=== PATIENT | female | born 1990 | race African-American/Black ===

== ENCOUNTER 2019-04-01 02:58 | Emergency (ER) | payer SELFPAY ==
[2019-04-01 05:26] LABS: ABSOLUTE EOSINOPHILS # (AUTO) 0.1 10^3/uL (0.0-0.6); ABSOLUTE LYMPHOCYTES (AUTO) 1.7 10^3/uL (0.5-4.7); ABSOLUTE MONOCYTES (AUTO) 0.8 10^3/uL (0.1-1.4); ABSOLUTE NEUT (AUTO) 4.7 10^3/uL (1.7-8.2); BASOPHILS % (AUTO) 0.3 % (0-2); HEMATOCRIT 28.7 % (36.0-47.0); HEMOGLOBIN 8.9 g/dL (12.0-15.5); LYMPHOCYTES % (AUTO) 22.7 % (13-45); MEAN CORPUSCULAR HEMOGLOBIN 20.6 pg (27.0-33.4); MEAN CORPUSCULAR VOLUME 67 fl (80-97); MONOCYTES % (AUTO) 11.1 % (3-13); PLATELET COUNT 309 10^3/uL (150-450); RED BLOOD COUNT 4.32 10^6/uL (3.72-5.28); RED CELL DISTRIBUTION WIDTH 21.2 % (11.5-14.0); SEGMENTED NEUTROPHILS % (AUTO) 63.9 % (42-78); TOTAL CELLS COUNTED % (AUTO) 100 %; WHITE BLOOD COUNT 7.4 10^3/uL (4.0-10.5)
[2019-04-01 05:36] LABS: ALANINE AMINOTRANSFERASE 19 U/L (9-52); ALBUMIN 3.6 g/dL (3.5-5.0); ALKALINE PHOSPHATASE 76 U/L (38-126); ANION GAP 9 (5-19); ASPARTATE AMINO TRANSFERASE 19 U/L (14-36); BILIRUBIN,DIRECT 0.3 mg/dL (0.0-0.4); BILIRUBIN,TOTAL 0.4 mg/dL (0.2-1.3); BLOOD UREA NITROGEN 6 mg/dL (7-20); CALCIUM 8.7 mg/dL (8.4-10.2); CARBON DIOXIDE 27 mmol/L (22-30); CHLORIDE 102 mmol/L (98-107); GLUCOSE 96 mg/dL (75-110); LIPASE 610.2 U/L (23-300); POTASSIUM 3.4 mmol/L (3.6-5.0); SODIUM 138.4 mmol/L (137-145); TOTAL PROTEIN 7.3 g/dL (6.3-8.2)
[2019-04-01 06:30] LABS: APPEARANCE,URINE CLEAR; BILIRUBIN,URINE NEGATIVE (NEGATIVE); COLOR,URINE YELLOW; GLUCOSE, URINE NEGATIVE (NEGATIVE); KETONES,URINE NEGATIVE (NEGATIVE); LEUKOCYTE ESTERASE,URINE TRACE (NEGATIVE); NITRITE,URINE NEGATIVE (NEGATIVE); PROTEIN,URINE 30 mg/dL (NEGATIVE); URINE SPECIFIC GRAVITY 1.013; UROBILINOGEN,URINE NEGATIVE mg/dL (<2.0)
[2019-04-01] MEDS ORDERED: NORMAL SALINE 500 ML IV ONE (08:07)
--- NOTE | 2019-04-01 09:27 | RADIOLOGY REPORT (SQ) ---
EXAM DESCRIPTION: CTA CHEST COMPLETED DATE/TIME: 04/01/2019 9:16 am REASON FOR STUDY: recent sx sob tachy COMPARISON: AP chest 04/19/2016 TECHNIQUE: CT scan of the chest performed using helical scanning technique with dynamic intravenous contrast injection. Images reviewed with lung, soft tissue and bone windows. Reconstructed coronal and sagittal MPR images reviewed. Additional 3 dimensional post-processing performed to develop Maximal Intensity Projection images (PA P). All images stored on PACS. All CT scanners at this facility use dose modulation, iterative reconstruction, and/or weight based d osing when appropriate to reduce radiation dose to as low as reasonably achievable (ALARA). [facility]: Dose Right [facility]: CareDose [facility]: Dose Right [facility]: Teradose 4D [facility]: GüvenRehberi CONTRAST TYPE AND DOSE: contrast/concentration: Isovue 350.00 mg/ml; Total Contrast Delivered: 86.0 ml; Total Saline Delivered: 90.0 ml Contrast bolus optimized for the pulmonary arteries. Not diagnostic for the aorta. RENAL FUNCTION: Creatinine 0.7 RADIATION DOSE: CT Rad equipment meets quality standard of care and radiation dose reduction techniq ues were employed. CTDIvol: 19.8 - 35.6 mGy. DLP: 1251 mGy-cm. . LIMITATIONS: None. FINDINGS: LUNGS AND PLEURA: No masses, infiltrates, or pneumothorax. No pleural effusions or pleura l calcifications. AORTA AND GREAT VESSELS: No aneurysm. Contrast bolus not optimized for the aorta. HEART: No pericardial effusion. No significant coronary artery calcifications. PULMONARY ARTERIES: No emboli visualized in the main pulmonary arteries or the segmental branches. HILAR AND MEDIASTINAL STRUCTURES: No identified masses or abnormal nodes. HARDWARE: None in the chest. UPPER ABDOMEN: No significant findings. Limited exam. THYROID AND OTHER SOFT TISSUES: No masses. No adenopathy. BONES: No acute or significant finding. 3D MIPS: Confirm above findings. OTHER: No other significant finding. IMPRESSION: NORMAL CTA OF THE CHEST. NO PULMONARY EMBOLI. COMMENT: Quality ID # [id number]: Final reports with documentation of one or more dose reduction techniques (e.g., Automated exposure control, adjustment of the mA and/or kV according to patient size, use of iterative reconstruction technique) TECHNICAL DOCUMENTATION: JOB ID: [id number] [employer]- All Rights Reserved Reading location - IP/workstation name: [email or web address]
[2019-04-01] MEDS ORDERED: BENZONATATE 100 MG CAPSULE PO ONE (09:46)
[2019-04-01 09:53] VITALS: BP 136/80
--- NOTE | 2019-04-01 10:03 | ER Document Report ---
ED General - General Chief Complaint: Breathing Difficulty Stated Complaint: DIFFICULTY BREATHING Time Seen by Provider: 04/01/19 07:02 Primary Care Provider: JESICA BETANCOURT MD [Primary Care Provider] - Follow up in 3-5 days TRAVEL OUTSIDE OF THE [place].S[place] IN LAST 30 DAYS: No - HPI Patient complains to provider of: Shortness of breath Notes: Patient coming in for chest pain shortness of breath ongoing for the last 2 days. Patient states scant sputum production with a cough. Patient recently had surgery performed at [facility] with a partial colectomy. Patient has a colostomy at this time. Patient otherwise denies any fevers chills nausea vomiting diarrhea. Patient resting comfortably upon my evaluation. - Related Data Allergies/Adverse Reactions: acetaminophen [From Excedrin Migraine] Allergy (Severe, Verified 04/01/19 07:54) throat swelling aspirin [From Excedrin Migraine] Allergy (Verified 04/01/19 07:54) caffeine [From Excedrin Migraine] Allergy (Verified 04/01/19 07:54) ibuprofen [From Advil] Allergy (Verified 04/01/19 07:54) Past Medical History - Social History Smoking Status: Never Smoker Chew tobacco use (# tins/day): No Frequency of alcohol use: None Drug Abuse: None Family History: Reviewed & Not Pertinent Patient has suicidal ideation: No Patient has homicidal ideation: No - Past Medical History Cardiac Medical History: Reports: Hx Hypercholesterolemia, Hx Hypertension Renal/ Medical History: Denies: Hx Peritoneal Dialysis - Immunizations Hx Diphtheria, Pertussis, Tetanus Vaccination: Yes Review of Systems - Review of Systems Constitutional: No symptoms reported EENT: No symptoms reported Cardiovascular: Chest pain Respiratory: Short of breath Gastrointestinal: No symptoms reported Genitourinary: No symptoms reported Female Genitourinary: No symptoms reported Musculoskeletal: No symptoms reported Skin: No symptoms reported Hematologic/Lymphatic: No symptoms reported Neurological/Psychological: No symptoms reported -: Yes All other systems reviewed and negative Physical Exam - Vital signs Vitals: Temp Pulse Resp BP Pulse Ox 98.5 F 111 H 20 143/101 H 99 04/01/19 03:01 04/01/19 03:01 04/01/19 03:01 04/01/19 03:01 04/01/19 03:01 Interpretation: Normal - General General appearance: Appears well, Alert - HEENT Head: Normocephalic, Atraumatic Eyes: Normal Pupils: PERRL - Respiratory Respiratory status: No respiratory distress Chest status: Nontender Breath sounds: Normal Chest palpation: Normal - Cardiovascular Rhythm: Regular Heart sounds: Normal auscultation Murmur: No - Abdominal Inspection: Other - Colostomy in place no signs of infection normal drainage. Distension: No distension Bowel sounds: Normal Tenderness: Nontender Organomegaly: No organomegaly - Back Back: Normal, Nontender - Extremities General upper extremity: Normal inspection, Nontender, Normal color, Normal ROM, Normal temperature General lower extremity: Normal inspection, Nontender, Normal color, Normal ROM, Normal temperature, Normal weight bearing. No: Pipo's sign - Neurological Neuro grossly intact: Yes Cognition: Normal Orientation: AAOx4 Guillermo Coma Scale Eye Opening: Spontaneous Guillermo Coma Scale Verbal: Oriented Guillermo Coma Scale Motor: Obeys Commands Alderson Coma Scale Total: 15 Speech: Normal Motor strength normal: LUE, RUE, LLE, RLE Sensory: Normal - Psychological Associated symptoms: Normal affect, Normal mood - Skin Skin Temperature: Warm Skin Moisture: Dry Skin Color: Normal Course - Re-evaluation Re-evalutation: 04/01/19 13:58 Laboratory studies show signs of anemia. Possible etiology of the patient's shortness of breath. CTA laboratory studies not revealing critical pathology. Patient was just discharged home follow-up primary care physician. The patient has atypical chest pain as the patient's chest pain is not suggestive of pulmonary embolus, cardiac ischemia, aortic dissection, or other serious etiology. Given the extremely low risk of these diagnoses further testing and evaluation for these possibilities does not appear to be indicated at this time. The patient has been instructed to return if the symptoms worsen or change in any way. - Vital Signs Vital signs: Temp Pulse Resp BP Pulse Ox 98.8 F 90 20 136/80 H 100 04/01/19 09:51 04/01/19 09:51 04/01/19 09:51 04/01/19 09:51 04/01/19 09:51 - Laboratory Result Diagrams: 04/01/19 05:05 04/01/19 05:05 Laboratory results interpreted by me: 04/01/19 04/01/19 04/01/19 05:05 05:05 05:05 Hgb 8.9 L Hct 28.7 L MCV 67 L MCH 20.6 L MCHC 31.0 L RDW 21.2 H D-Dimer 2.14 H Potassium 3.4 L BUN 6 L Lipase 610.2 H Urine Protein Ur Leukocyte Esterase 04/01/19 06:20 Hgb Hct MCV MCH MCHC RDW D-Dimer Potassium BUN Lipase Urine Protein 30 H Ur Leukocyte Esterase TRACE H Discharge - Discharge Clinical Impression: Dyspnea Qualifiers: Dyspnea type: unspecified Qualified Code(s): R06.00 - Dyspnea, unspecified Anemia Qualifiers: Anemia type: unspecified type Qualified Code(s): D64.9 - Anemia, unspecified Condition: Good Disposition: HOME, SELF-CARE Instructions: Anemia ([facility]), Dyspnea, Nonspecific ([facility]) Additional Instructions: Your laboratory studies not show any signs of critical pathology except for an anemia. I would recommend starting iron tablets please be aware that this may change the output of your ostomy to dark green to dark black. Please follow-up with your primary care physician for further evaluation of your anemia. CT scan does not show any signs of pneumonia or PE. To help out with your cough we will try Tessalon Perles. Return to the ER symptoms worsen. Prescriptions: Benzonatate [Tessalon Perle 100 mg Capsule] 100 mg PO Q8HP PRN #40 cap PRN Reason: Ferrous Sulfate [Iron] 325 mg PO DAILY #30 tablet Referrals: JESICA BETANCOURT MD [Primary Care Provider] - Follow up in 3-5 days
--- NOTE | 2019-04-01 20:30 | EKG REPORT ---
SEVERITY:- ABNORMAL ECG - SINUS TACHYCARDIA PROBABLE LEFT ATRIAL ABNORMALITY PROBABLE LEFT VENTRICULAR HYPERTROPHY PROLONGED QT INTERVAL : Confirmed by: Essie Phillip 01-Apr-2019 20:29:11
== END 2019-04-01 10:05 | disposition home or self-care (01) ==
LOC: ER 02:58
DX: R06.02 Shortness of breath (principal); D64.9 Anemia, unspecified; R07.89 Other chest pain; R05 Cough; I10 Essential (primary) hypertension; Z93.3 Colostomy status; Z90.49 Acquired absence of other specified parts of digestive tract; Z88.8 Allergy status to other drugs, medicaments and biological substances
CPT/HCPCS: 93005; 99285; 36415; 83690; 85025; 80053; 81001; 84484; 85379; 71275; 93010; J7040

== ENCOUNTER 2019-04-19 05:12 | Inpatient (IN) | payer SELFPAY ==
[2019-04-19] MEDS ORDERED: PREDNISONE 20 MG TABLET PO ONE (06:32)
[2019-04-19] MEDS ORDERED: IPRATROPIUM/ALBUTEROL 0.5-2.5 MG/3 ML AMPUL NEB ONE (06:33)
[2019-04-19] MEDS ORDERED: LIDOCAINE 1% INJ-PF (10 MG/ML) 30 ML SDV NEB ONE (06:33)
--- NOTE | 2019-04-19 06:55 | ER Document Report ---
Entered by LAM MATOS SCRIBE 04/19/19 0648 Acting as scribe for:ODILIA ORNELAS MD ED Respiratory Problem - General Chief Complaint: Breathing Difficulty Stated Complaint: DIFFICULTY BREATHING Time Seen by Provider: 04/19/19 06:13 Mode of Arrival: Ambulatory Information source: Patient Notes: 29-year-old female who presents to the emergency department today with complaints of a cough for around x3 weeks. Patient was seen here initially on 04/01 and was diagnosed with an upper respiratory virus. The patient traveled to [place] for the april, was seen in the emergency department and was told she had "pneumonia" and was sent home on Levaquin, albuterol inhalers, and cough syrup. Patient states despite taking all of the above-mentioned medicati ons her cough is still not getting better. Patient denies a sore throat. TRAVEL OUTSIDE OF THE U.S. IN LAST 30 DAYS: No - Related Data Allergies/Adverse Reactions: acetaminophen [From Excedrin Migraine] Allergy (Severe, Verified 04/01/19 07:54) throat swelling aspirin [From Excedrin Migraine] Allergy (Verified 04/01/19 07:54) caffeine [From Excedrin Migraine] Allergy (Verified 04/01/19 07:54) ibuprofen [From Advil] Allergy (Verified 04/01/19 07:54) Past Medical History - General Information source: Patient - Social History Smoking Status: Current Every Day Smoker Cigarette use (# per day): Yes - 1/2 PPD Chew tobacco use (# tins/day): No Smoking Education Provided: No Frequency of alcohol use: None Drug Abuse: None Occupation: unemployed Lives with: Family Family History: Reviewed & Not Pertinent Patient has suicidal ideation: No Patient has homicidal ideation: No GI Medical History: Reports: Hx Diverticulitis Past Surgical History: Reports: Hx Colostomy - Colostomy with partial colectomy March 2019 for perforated diverticulitis - Immunizations Hx Diphtheria, Pertussis, Tetanus Vaccination: Yes Review of Systems - Review of Systems Constitutional: No symptoms reported EENT: denies: Throat pain Cardiovascular: No symptoms reported Respiratory: See HPI, Cough, Short of breath Gastrointestinal: No symptoms reported Genitourinary: No symptoms reported Female Genitourinary: No symptoms reported Musculoskeletal: No symptoms reported Skin: No symptoms reported Hematologic/Lymphatic: No symptoms reported Neurological/Psychological: No symptoms reported -: Yes All other systems reviewed and negative Physical Exam - Vital signs Vitals: Temp Pulse Resp BP Pulse Ox 97.9 F 115 H 28 H 150/94 H 95 04/19/19 05:17 04/19/19 05:17 04/19/19 05:17 04/19/19 05:17 04/19/19 05:17 - Notes Notes: Physical Exam: General: Alert, appears well. HEENT: Normocephalic. Atraumatic. PERRL. Extraocular movements intact. Oropharynx clear. TMs are clear bilaterally. Posterior oropharynx erythema with a white globule on the right tonsil although patient reports no throat discomfort. Hoarse sounding voice. Neck: Supple. Non-tender. Respiratory: Frequent dry cough. Patient does seem a little tachypneic. There are no definite crackles or wheezes heard on auscultation. Cardiovascular: Regular rate and rhythm. Systolic crescendo murmur. Abdominal: Normal Inspection. Non-tender. No distension. Normal Bowel Sounds. Back: Non-tender. No deformity or step off. Extremities: Moves all four extremities. Upper extremities: Normal inspection. Normal ROM. Lower extremities: Normal inspection. No edema. Normal ROM. Neurological: Normal cognition. AAOx4. Normal speech. Psychological: Normal affect. Normal Mood. Skin: Warm. Dry. Normal color. Course - Re-evaluation Re-evalutation: 04/19/19 08:29 This 29-year-old female patient came to the emergency room complaining of cough for the last few weeks. On initial history and physical, she denied a history of high blood pressure or any other medical problems. Reviewing available pharmacy records, I found she had been put on lisinopril, carvedilol, amlodipine , Lasix, spironolactone all in the past year. On further questioning, she states she had been here several times with cough and congestion it was not getting better and went to the emergency room in [facility] where she was diagnosed with congestive heart failure. Afterwards she was following up with the [facility] in their local [place] office. She had seen at least 2 different almond roaster, and had 2 echoes. She states the second echo they said everything was cleaned up and she did not need to be taking the medications any longer. She states that she was told her dima ginal congestive heart failure was caused by her blood pressure being so high and not being treated. Patient did have chest x-rays done here twice in 2016, and there was no infiltrate or interstitial edema on either of those x-rays. - Vital Signs Vital signs: Temp Pulse Resp BP Pulse Ox 97.9 F 115 H 32 H 145/100 H 98 04/19/19 05:17 04/19/19 05:17 04/19/19 09:01 04/19/19 09:01 04/19/19 09:01 - Laboratory Result Diagrams: 04/19/19 06:40 04/19/19 06:40 Laboratory results interpreted by me: 04/19/19 04/19/19 04/19/19 06:40 06:40 06:40 WBC 11.0 H Hgb 9.8 L Hct 31.0 L MCV 67 L MCH 21.2 L MCHC 31.5 L RDW 22.1 H Potassium 3.5 L NT-Pro-B Natriuret Pep 1690 H Albumin 3.4 L - Diagnostic Test Radiology reviewed: Image reviewed, Reports reviewed - Chest x-ray shows cardiac enlargement with pulmonary vascular congestion. - EKG Interpretation by Me EKG shows normal: Sinus rhythm, Mckinney, QRS Complexes, ST-T Waves. abnormal: Int ervals - Prolonged QT interval Rate: Tachycardia - 111 Voltage: Consistant with LVH P Waves: LAE When compared to previous EKG there are: No significant change - Consults Marco Bateman NP Time consulted: 12:58 Consulted provider: will come to ER Critical Care Note - Critical Care Note Total time excluding time spent on procedures (mins): 35 Discharge - Discharge Clinical Impression: Pulmonary edema cardiac cause, Shortness of breath, Cough, Non-compliance with treatment High blood pressure Qualifiers: Hypertension type: essential hypertension Qualified Code(s): I10 - Essential (primary) hypertension Condition: Stable Disposition: ADMITTED INPATIENT Admitting Provider: David (Hospitalist) Unit Admitted: KELLI Scribe Attestation: 04/19/19 06:57 I personally performed the services described in the documentation, reviewed and edited the documentation which was dictated to the scribe in my presence, and it accurately records my words and actions. I personally performed the services described in the documentation, reviewed and edited the documentation which was dictated to the scribe in my presence, and it accurately records my words and actions.
[2019-04-19 06:57] LABS: ABSOLUTE LYMPHOCYTES (AUTO) 1.9 10^3/uL (0.5-4.7); ABSOLUTE MONOCYTES (AUTO) 0.8 10^3/uL (0.1-1.4); ABSOLUTE NEUT (AUTO) 8.2 10^3/uL (1.7-8.2); BASOPHILS % (AUTO) 0.5 % (0-2); EOSINOPHILS % (AUTO) 0.3 % (0-6); HEMOGLOBIN 9.8 g/dL (12.0-15.5); LYMPHOCYTES % (AUTO) 16.9 % (13-45); MEAN CORPUSCULAR HEMOGLOBIN 21.2 pg (27.0-33.4); MEAN CORPUSCULAR HGB CONC 31.5 g/dL (32.0-36.0); MEAN CORPUSCULAR VOLUME 67 fl (80-97); MONOCYTES % (AUTO) 7.7 % (3-13); PLATELET COUNT 369 10^3/uL (150-450); RED BLOOD COUNT 4.61 10^6/uL (3.72-5.28); RED CELL DISTRIBUTION WIDTH 22.1 % (11.5-14.0); SEGMENTED NEUTROPHILS % (AUTO) 74.6 % (42-78); TOTAL CELLS COUNTED % (AUTO) 100 %
[2019-04-19 07:14] LABS: ALANINE AMINOTRANSFERASE 20 U/L (9-52); ALBUMIN 3.4 g/dL (3.5-5.0); ALKALINE PHOSPHATASE 66 U/L (38-126); ANION GAP 9 (5-19); ASPARTATE AMINO TRANSFERASE 21 U/L (14-36); BILIRUBIN,DIRECT 0.2 mg/dL (0.0-0.4); BILIRUBIN,TOTAL 0.7 mg/dL (0.2-1.3); BLOOD UREA NITROGEN 10 mg/dL (7-20); CARBON DIOXIDE 26 mmol/L (22-30); CHLORIDE 104 mmol/L (98-107); GLUCOSE 97 mg/dL (75-110); POTASSIUM 3.5 mmol/L (3.6-5.0); SODIUM 138.7 mmol/L (137-145); TOTAL PROTEIN 6.6 g/dL (6.3-8.2)
[2019-04-19 08:11] LABS: LIPASE 212.2 U/L (23-300)
--- NOTE | 2019-04-19 08:27 | RADIOLOGY REPORT (SQ) ---
EXAM DESCRIPTION: CHEST 2 VIEWS COMPLETED DATE/TIME: 04/19/2019 7:49 am REASON FOR STUDY: chronic cough COMPARISON: 04/19/2016 NUMBER OF VIEWS: Two views. TECHNIQUE: Frontal and lateral radiographic views of the chest acquired. LIMITATIONS: None. FINDINGS: LUNGS AND PLEURA: Diffuse interstitial pattern. No infiltrate. No effusions. MEDIASTINUM AND HILAR STRUCTURES: No masses or contour abnormality. HEART AND VASCULAR STRUCTURES: Cardiac enlargement. Vascular congestion. BONES: No acute findings. HARDWARE: None in the chest. OTHER: No other significant finding. IMPRESSION: CARDIAC ENLARGEMENT. VASCULAR CONGESTION. TECHNICAL DOCUMENTATION: JOB ID: [id number] [email or web address]- All Rights Reserved Reading location - IP/workstation name: [email or web address]
[2019-04-19] MEDS ORDERED: FUROSEMIDE INJ/PF 40 MG/4 ML SDV IV ONE (10:11)
[2019-04-19 10:23] LABS: CREATINE KINASE 87 U/L (30-135)
[2019-04-19 10:35] LABS: CREATINE KINASE MB 0.46 ng/mL (<4.55); TROPONIN I 0.028 ng/mL
[2019-04-19] MEDS ORDERED: LISINOPRIL 5 MG TABLET PO SCH (13:45)
[2019-04-19] MEDS ORDERED: POTASSIUM CHLORIDE 20 MEQ PACKET PO ONE (13:46)
--- NOTE | 2019-04-19 13:47 | Progress Note Acknowledgement ---
Progress Note Acknowledgement Progess Note Acknowledgement: I, the undersigned member of the medical staff with appropriate privileges and with supervisory authority over Marco Bateman, a [employer] allied health professional, acknowledge that I have reviewed the progress notes entered on this patient, and in my professional judgment believe that the assessment made and/or any care evidenced was appropriate
--- NOTE | 2019-04-19 13:57 | PDOC H&P ---
History of Present Illness Admission Date/PCP: 04/19/19 13:19 Patient complains of: Shortness of breath, bilateral lower extremity swelling History of Present Illness: JI COBURN is a 29 year old female with a known history of congestive heart failure. From description patient gave it sounds like it is left-sided systolic failure. Patient had been on medications previously for this but was told at some point in time "not to take anymore medications because it was completely reversed". Patient had a partial colectomy with ostomy placed on March 08 secondary to a ruptured diverticulum. Patient suspects that this is what caused all of her problems as she states she has not had heart problems although she has had echoes in previous medications for congestive heart failure. Patient also has gross cardiomegaly on chest x-ray. Patient has had no t reatment prior to arrival all activities been aggravating factor. Past Medical History Cardiac Medical History: Reports: Congestive Heart Failure, Hyperlipidema, Hypertension GI Medical History: Reports: Diverticulitis, Other - Partial colectomy with ostomy Past Surgical History Past Surgical History: Reports: Colostomy - Colostomy with partial colectomy March 2019 for perforated diverticulitis, Other - Partial colectomy performed from likely perforated diverticulitis Social History Information Source: Patient Lives with: Family Smoking Status: Current Every Day Smoker Cigarettes Packs Per Day: 0.5 Frequency of Alcohol Use: None Hx Recreational Drug Use: No Hx Prescription Drug Abuse: No - Advance Directive Resuscitation Status: Full Code Family History Family History: Hypertension Parental Family History Reviewed: Yes Children Family History Reviewed: Yes Sibling(s) Family History Reviewed.: Yes Medication/Allergy Home Medications: Benzonatate [Tessalon Perle 100 mg Capsule] 100 mg PO Q8HP PRN #40 cap 04/01/19 Ferrous Sulfate [Iron] 325 mg PO DAILY #30 tablet 04/01/19 Allergies/Adverse Reactions: acetaminophen [From Excedrin Migraine] Allergy (Severe, Verified 04/01/19 07:54) throat swelling aspirin [From Excedrin Migraine] Allergy (Verified 04/01/19 07:54) caffeine [From Excedrin Migraine] Allergy (Verified 04/01/19 07:54) ibuprofen [From Advil] Allergy (Verified 04/01/19 07:54) Review of Systems Cardiovascular: PRESENT: dyspnea on exertion, edema Respiratory: PRESENT: dyspnea Physical Exam Vital Signs: Temp Pulse Resp BP Pulse Ox 97.9 F 115 H 32 H 145/100 H 98 04/19/19 05:17 04/19/19 05:17 04/19/19 09:01 04/19/19 09:01 04/19/19 09:01 Intake & Output 04/18/19 04/19/19 04/20/19 06:59 06:59 06:59 Weight 104.1 kg General appearance: PRESENT: no acute distress, well-developed, well-nourished Head exam: PRESENT: atraumatic, normocephalic Eye exam: PRESENT: conjunctiva pink, EOMI, PERRLA. ABSENT: scleral icterus Ear exam: PRESENT: normal external ear exam Mouth exam: PRESENT: moist, tongue midline Neck exam: ABSENT: carotid bruit, JVD, lymphadenopathy, thyromegaly Respiratory exam: PRESENT: clear to auscultation [place]. ABSENT: rales, rhonchi, wheezes Cardiovascular exam: PRESENT: tachycardia Pulses: PRESENT: normal dorsalis pedis pul Vascular exam: PRESENT: normal capillary refill GI/Abdominal exam: PRESENT: normal bowel sounds. ABSENT: soft - Ostomy in place Rectal exam: PRESENT: deferred Extremities exam: PRESENT: full ROM. ABSENT: calf tenderness, clubbing, pedal edema Neurological exam: PRESENT: alert, awake, oriented to person, oriented to place, oriented to time, oriented to situation, CN II-XII grossly intact. ABSENT: motor sensory deficit Psychiatric exam: PRESENT: appropriate affect, normal mood. ABSENT: homicidal ideation, suicidal ideation Skin exam: PRESENT: dry, intact, warm. ABSENT: cyanosis, rash Results Laboratory Results: 04/19/19 06:40 04/19/19 06:40 04/19/19 04/19/19 04/19/19 06:40 06:40 06:40 WBC 11.0 H RBC 4.61 Hgb 9.8 L Hct 31.0 L MCV 67 L MCH 21.2 L MCHC 31.5 L RDW 22.1 H Plt Count 369 Seg Neutrophils % 74.6 Lymphocytes % 16.9 Monocytes % 7.7 Eosinophils % 0.3 Basophils % 0.5 Absolute Neutrophils 8.2 Absolute Lymphocytes 1.9 Absolute Monocytes 0.8 Absolute Eosinophils 0.0 Absolute Basophils 0.0 Sodium 138.7 Potassium 3.5 L Chloride 104 Carbon Dioxide 26 Anion Gap 9 BUN 10 Creatinine 0.75 Est GFR ( Amer) > 60 Est GFR (Non-Af Amer) > 60 Glucose 97 Calcium 9.0 Total Bilirubin 0.7 AST 21 ALT 20 Alkaline Phosphatase 66 Total Protein 6.6 Albumin 3.4 L Lipase 212.2 04/19/19 04/19/19 04/19/19 06:40 06:40 06:40 Creatine Kinase 87 CK-MB (CK-2) 0.46 Troponin I 0.028 NT-Pro-B Natriuret Pep 1690 H EKG Comments: 04/19/2019-sinus tach 111 with left ventricular hypertrophy Impressions: Chest X-Ray 04/19/19 06:31 IMPRESSION: CARDIAC ENLARGEMENT. VASCULAR CONGESTION. Assessment and Plan - Diagnosis (1) Pulmonary edema cardiac cause Is this a current diagnosis for this admission?: Yes Plan: 04/19/2019-admit to [facility]. At this time will diurese patient with 40 mg IV Lasix every 8 hours until we see a bump in her creatinine. We will obtain a cardiac consult with Dr. Du. Will obtain echocardiogram. I will place patient on Coreg 3.125 mg p.o. twice daily and lisinopril 2.5 mill grams p.o. daily I will titrate these to effect. Will await echocardiogram it changes plan of care as appropriate - Time Time Spent with patient: 35 or more minutes Medications reviewed and adjusted accordingly: Yes Anticipated discharge: Home - Inpatient Certification Based on my medical assessment, after consideration of the patient's comorbiditi es, presenting symptoms, or acuity I expect that the services needed warrant INPATIENT care.: Yes I certify that my determination is in accordance with my understanding of [facility]'s requirements for reasonable and necessary INPATIENT services [42 CFR 412.3e].: Yes Medical Necessity: Other - IV diuresis, echocardiogram and cardiology consult.
[2019-04-19] MEDS: FUROSEMIDE INJ/PF 40 MG/4 ML SDV IV SCH ×2 (15:00→21:04)
--- NOTE | 2019-04-19 17:03 | EKG REPORT ---
SEVERITY:- ABNORMAL ECG - SINUS TACHYCARDIA LEFT ATRIAL ABNORMALITY PROBABLE LEFT VENTRICULAR HYPERTROPHY PROLONGED QT INTERVAL : Confirmed by: Leeann Du MD 19-Apr-2019 17:02:57
[2019-04-19] MEDS ORDERED: MORPHINE SULFATE 10 MG/ML INJ IV PRN ×3 (19:43→20:04)
[2019-04-19] MEDS: ZOLPIDEM TARTRATE 5 MG TABLET PO SCH (21:04)
[2019-04-19] MEDS: MORPHINE SULFATE 10 MG/ML INJ IV PRN (21:05)
[2019-04-19] MEDS ORDERED: CARVEDILOL 3.125 MG TABLET PO SCH (22:00)
--- NOTE | 2019-04-19 22:56 | PDOC CONSULTATION ---
Consultation-Blank Consultation: CARDIOLOGY CONSULTATION by Dr. Leeann Sevilla on 05/06/2019. Patient seen at 8:30 PM on 04/19/2019. REASON FOR CONSULTATION: Congestive heart failure. CONSULT REQUESTING PROVIDER: Mr. Marco Bateman, nurse practitioner, [facility]. HISTORY of PRESENT ILLNESS: Past Medical History Cardiac Medical History: Reports: Congestive Heart Failure, Hyperlipidema, Hypertension GI Medical History: Reports: Diverticulitis, Other - Partial colectomy with ostomy Past Surgical History: Reports: Colostomy - Colostomy with partial colectomy March 2019 for perforated diverticulitis, Other - Partial colectomy performed from likely perforated diverticulitis Social History: Smoking Status: Current Every Day Smoker. But due to cough she has not smoked for a month period prior to that she smoked cigarettes Packs Per Day: 0.5 Frequency of Alcohol Use: None Hx Recreational Drug Use: No Hx Prescription Drug Abuse: No Advance Directives: Resuscitation Status: Full Code. Her mother is her surrogate healthcare decision maker. Family History: Hypertension Medication/Allergy Home Medications: Benzonatate ,Ferrous Sulfate [Iron] 325 mg PO DAILY, Allergies/Adverse Reactions: acetaminophen :throat swelling ,aspirin ,caffeine ,ibuprofen [From Advil] Allergy Review of Systems PHYSICAL EXAMINATION: The patient is moderately obese. She is in some mild distress due to coughing which is very frequent. She is well-groomed. Selected Entries 04/19/19 20:01 Temperature 97.5 F Temperature Axillary Source Pulse Rate 109 H Respiratory 18 Rate Blood Pressure 119/71 Blood Pressure 87 Mean BP Location Right Arm BP Position Supine O2 Sat by Pulse 100 Oximetry Oxygen Delivery Room Air Method : HEAD: Is atraumatic. Normocephalic. EYES: Pupils are equal round regular. Reactive to light accommodation. Extraocular movements are normal. There is no conjunctival pallor. There is no scleral icterus. EARS: Tympanic membranes are intact. External auditory canals are clear. NOSE: There is no deviated nasal septum. There is no inflammation nasal mucous membrane. MOUTH:. Mucous membranes of mouth are moist. Tongue is moist. There is no ulcers. There is no bleeding from the gums OROPHARYNX: Modified Mallampati classification 3 THROAT: There is no redness of the oropharynx. There is no exudates. SKIN: There is no particular ecchymosis. There is no skin lesions or skin rashes. NECK: Is supple. There is mild JVD present. Carotids are equal there is no bruit. There is no lymphadenopathy. There is no goiter. There is no accessory muscle respiration use. There is no neck stiffness. Trachea central. LUNGS: There is bibasilar fine rales of CHF. There is definite evidence of COPD by exam. There is diminished air entry and prolonged expiration. On percussion there is some hyperresonance. On palpation there is no chest wall tenderness. There is scattered rhonchi present, but no wheezing. HEART: S1-S2 is heard. There is no S3 gallop. There is no S4 gallop. There is systolic murmur left sternal border and the apex. There is no rub. ABDOMEN: Is obese. There is no hepatosplenomegaly. Bowel sounds are well heard. There is no tender areas of masses. There is left colostomy bag present. EXTREMITIES: Femorals are deep. Femorals are diminished. There is no femoral bruits. Leg pulses are diminished. There is trace pedal edema. [The patient states edema is much marked when she came in, and retreat (come down]. There is no sinus or clubbing. There is no DVT or cellulitis. There is no calf tenderness. MEMORIAL ADVISER: The patient is conscious awake alert oriented x3 with no focal deficits. PSYCHI ATRIC: The patient judgment insight are intact her affect is normal. Current Medications Carvedilol (Coreg 3.125 Mg Tablet) 3.125 mg PO Q12 AKOSUA Stop: 05/19/19 21:59 Last Admin: 04/19/19 21:04 Dose: 3.125 mg Documented by: Furosemide (Lasix Inj/Pf 40 Mg/4 Ml Sdv) 40 mg IV Q8 AKOSUA Stop: 05/19/19 13:59 Last Admin: 04/19/19 21:04 Dose: 40 mg Documented by: Lisinopril (Prinivil 5 Mg Tablet) 2.5 mg PO DAILY [facility] Stop: 05/19/19 13:44 Last Admin: 04/19/19 15:00 Dose: 2.5 mg Documented by: Morphine Sulfate (Morphine 10 Mg/Ml Inj) 2 mg IV Q2HP PRN PRN Reason: PAIN SCALE 1-2/5 Stop: 04/26/19 20:02 Last Admin: 04/19/19 21:05 Dose: 2 mg Documented by: Morphine Sulfate (Morphine 10 Mg/Ml Inj) 3 mg IV Q2HP PRN PRN Reason: PAIN SCALE 3-4/5 Stop: 04/26/19 20:03 Last Admin: 04/19/19 23:07 Dose: 3 mg Documented by: Morphine Sulfate (Morphine 10 Mg/Ml Inj) 4 mg IV Q2HP PRN PRN Reason: PAIN SCALE 5/5 Stop: 04/26/19 20:03 Sodium Chloride (Saline Flush 2.5 Ml Monoject Prefil Syrin) 2.5 ml IV Q8 [facility] Stop: 05/19/19 21:59 Last Admin: 04/19/19 21:11 Dose: Not Given Documented by: Zolpidem Tartrate (Ambien 5 Mg Tablet) 5 mg PO QHS [facility] Stop: 04/26/19 21:59 Last Admin: 04/19/19 21:04 Dose: 5 mg Documented by: Discontinued Medications Albuterol/Ipratropium (Duoneb 3 Ml Ampul) 3 ml NEB NOW ONE Stop: 04/19/19 06:34 Last Admin: 04/19/19 07:01 Dose: 3 ml Documented by: Furosemide (Lasix Inj/Pf 40 Mg/4 Ml Sdv) 40 mg IV NOW ONE Stop: 04/19/19 10:12 Last Admin: 04/19/19 10:25 Dose: 40 mg Documented by: Lidocaine HCl (Xylocaine 1% Inj-Pf (10 Mg/Ml) 30 Ml Sdv) 5 ml NEB NOW ONE Stop: 04/19/19 06:34 Last Admin: 04/19/19 07:01 Dose: 5 ml Documented by: Potassium Chloride (Potassium Chloride 20 Meq Packet) 40 meq PO NOW ONE Stop: 04/19/19 13:47 Last Admin: 04/19/19 15:00 Dose: 40 meq Documented by: Prednisone (Deltasone 20 Mg Tablet) 60 mg PO NOW ONE Stop: 04/19/19 06:33 Last Admin: 04/19/19 07:00 Dose: 60 mg Documented by: Labs- Entire Visit 04/19/19 04/19/19 04/19/19 06:40 06:40 06:40 WBC 11.0 H RBC 4.61 Hgb 9.8 L Hct 31.0 L MCV 67 L MCH 21.2 L MCHC 31.5 L RDW 22.1 H Plt Count 369 Seg Neutrophils % 74.6 Lymphocytes % 16.9 Monocytes % 7.7 Eosinophils % 0.3 Basophils % 0.5 Absolute Neutrophils 8.2 Absolute Lymphocytes 1.9 Absolute Monocytes 0.8 Absolute Eosinophils 0.0 Absolute Basophils 0.0 Sodium 138.7 Potassium 3.5 L Chloride 104 Carbon Dioxide 26 Anion Gap 9 BUN 10 Creatinine 0.75 Est GFR ( Amer) > 60 Est GFR (Non-Af Amer) > 60 Glucose 97 Calcium 9.0 Total Bilirubin 0.7 Direct Bilirubin 0.2 Neonat Total Bilirubin Not Reportable Neonat Direct Bilirubin Not Reportable Neonat Indirect Bili Not Reportable AST 21 ALT 20 Alkaline Phosphatase 66 Creatine Kinase CK-MB (CK-2) Troponin I NT-Pro-B Natriuret Pep 1690 H Total Protein 6.6 Albumin 3.4 L Lipase 04/19/19 04/19/19 04/19/19 06:40 06:40 06:40 WBC RBC Hgb Hct MCV MCH MCHC RDW Plt Count Seg Neutrophils % Lymphocytes % Monocytes % Eosinophils % Basophils % Absolute Neutrophils Absolute Lymphocytes Absolute Monocytes Absolute Eosinophils Absolute Basophils Sodium Potassium Chloride Carbon Dioxide Anion Gap BUN Creatinine Est GFR ( Amer) Est GFR (Non-Af Amer) Glucose Calcium Total Bilirubin Direct Bilirubin Neonat Total Bilirubin Neonat Direct Bilirubin Neonat Indirect Bili AST ALT Alkaline Phosphatase Creatine Kinase 87 CK-MB (CK-2) 0.46 Troponin I 0.028 NT-Pro-B Natriuret Pep Total Protein Albumin Lipase 212.2 04/19/19 18:45 WBC RBC Hgb Hct MCV MCH MCHC RDW Plt Count Seg Neutrophils % Lymphocytes % Monocytes % Eosinophils % Basophils % Absolute Neutrophils Absolute Lymphocytes Absolute Monocytes Absolute Eosinophils Absolute Basophils Sodium Potassium Chloride Carbon Dioxide Anion Gap BUN Creatinine Est GFR ( Amer) Est GFR (Non-Af Amer) Glucose Calcium Total Bilirubin Direct Bilirubin Neonat Total Bilirubin Neonat Direct Bilirubin Neonat Indirect Bili AST ALT Alkaline Phosphatase Creatine Kinase 77 CK-MB (CK-2) Troponin I NT-Pro-B Natriuret Pep Total Protein Albumin Lipase Chest X-Ray 04/19/19 06:31 IMPRESSION: CARDIAC ENLARGEMENT. VASCULAR CONGESTION. This seems to be right ventricular and left ventricular enlargement. There is congestive heart failure. IMPRESSION/RECOMMENDATION: 1. Acute on chronic left ventricular and right ventricular systolic failure: In view of the patient's smoking history, and possible presence of COPD as per clinical exam. Would recommend switch to Toprol-XL 50 mg p.o. every 12 hours. Would also increase the patient's lisinopril to 5 mg p.o. every 12 hours. Continue Lasix 2. Suspect recurrence of cardiomyopathy: This may be due to the patient untreated hypertension. We will get his echocardiogram after the patient is well compensated from her biventricular heart failure. 3. Hypertension: Blood pressure seems to be much improved since admission. Note on admission the pressure blood pressure was 154/94 and 145/100. Her blood pressure is vastly improved continue current medications, but in the doses mentioned above. 4. Chronic obstructive pulmonary disease: Suspect acute exacerbation. Continue inhalers and steroids. 5. Cough she is poor when the patient lies down, much improved when the patient sits up. This is consistent with PND equivalent 6. History of tobacco abuse: The patient quit smoking about a month ago. Smoking cessation counseling given. Patient encouraged to continue to refrain from stopping smoking. 7. Symptoms suggestive of obstructive sleep apnea: Patient would be recommended to have outpatient sleep study. 8. Hyperlipidemia: Continue statins. 9. History of recent diverticulitis, status post colectomy and colostomy bag placement recently. 10. Obesity: Later as an outpatient would recommend weight reduction techniques and counseling. Medications reviewed. Medications adjusted. Management plan discussed with attending physician on the case. Medical decision making is of high complexity. Will get records from [facility]. 60 minutes spent on this patient with more than 50% of time spent in direct patient care. Will follow
[2019-04-20] MEDS: MORPHINE SULFATE 10 MG/ML INJ IV PRN ×2 (02:10→05:48)
[2019-04-20 05:20] LABS: ABSOLUTE BASOPHILS # (AUTO) 0.1 10^3/uL (0.0-0.2); ABSOLUTE LYMPHOCYTES (AUTO) 2.3 10^3/uL (0.5-4.7); ABSOLUTE MONOCYTES (AUTO) 0.8 10^3/uL (0.1-1.4); ABSOLUTE NEUT (AUTO) 6.2 10^3/uL (1.7-8.2); BASOPHILS % (AUTO) 0.5 % (0-2); EOSINOPHILS % (AUTO) 0.2 % (0-6); HEMATOCRIT 32.1 % (36.0-47.0); HEMOGLOBIN 9.8 g/dL (12.0-15.5); LYMPHOCYTES % (AUTO) 24.2 % (13-45); MEAN CORPUSCULAR HEMOGLOBIN 20.8 pg (27.0-33.4); MEAN CORPUSCULAR HGB CONC 30.5 g/dL (32.0-36.0); MEAN CORPUSCULAR VOLUME 68 fl (80-97); MONOCYTES % (AUTO) 8.9 % (3-13); PLATELET COUNT 373 10^3/uL (150-450); RED BLOOD COUNT 4.72 10^6/uL (3.72-5.28); RED CELL DISTRIBUTION WIDTH 21.9 % (11.5-14.0); SEGMENTED NEUTROPHILS % (AUTO) 66.2 % (42-78); TOTAL CELLS COUNTED % (AUTO) 100 %; WHITE BLOOD COUNT 9.4 10^3/uL (4.0-10.5)
[2019-04-20] MEDS: FUROSEMIDE INJ/PF 40 MG/4 ML SDV IV SCH ×3 (05:48→21:08)
[2019-04-20 05:49] LABS: ANION GAP 9 (5-19); BLOOD UREA NITROGEN 10 mg/dL (7-20); CALCIUM 8.9 mg/dL (8.4-10.2); CARBON DIOXIDE 30 mmol/L (22-30); CHLORIDE 101 mmol/L (98-107); GLUCOSE 89 mg/dL (75-110); POTASSIUM 3.3 mmol/L (3.6-5.0); SODIUM 139.8 mmol/L (137-145)
[2019-04-20] MEDS: LISINOPRIL 5 MG TABLET PO SCH (09:32)
[2019-04-20] MEDS: METOPROLOL SUCCINATE 50 MG TAB.SR.24H PO SCH ×2 (09:32→21:08)
--- NOTE | 2019-04-20 11:02 | PDOC PROGRESS REPORT ---
Subjective Progress Note for:: 04/20/19 Subjective:: Stoma pain mostly the skin surrounding the stoma Reason For Visit: ACUTE ON CHRONIC CONGESTIVE HEART FAILURE UNKNOWN Physical Exam Vital Signs: Temp Pulse Resp BP Pulse Ox 97.8 F 109 H 18 113/66 99 04/20/19 08:12 04/20/19 08:12 04/20/19 08:12 04/20/19 08:12 04/20/19 08:12 Intake & Output 04/19/19 04/20/19 04/21/19 06:59 06:59 06:59 Intake Total 1666 Output Total 3406 Balance -1740 Weight 104.1 kg 98.9 kg General appearance: PRESENT: no acute distress, well-developed, well-nourished Neck exam: ABSENT: carotid bruit, JVD, lymphadenopathy, thyromegaly Respiratory exam: PRESENT: crackles Cardiovascular exam: PRESENT: RRR. ABSENT: diastolic murmur, rubs, systolic murmur Pulses: PRESENT: normal dorsalis pedis pul Vascular exam: PRESENT: normal capillary refill GI/Abdominal exam: PRESENT: other - Stoma beefy pink no signs of complications. Extremities exam: PRESENT: full ROM. ABSENT: calf tenderness, clubbing, pedal edema Neurological exam: PRESENT: alert, awake, oriented to person, oriented to place, oriented to time, oriented to situation, CN II-XII grossly intact. ABSENT: motor sensory deficit Psychiatric exam: PRESENT: appropriate affect, normal mood. ABSENT: homicidal ideation, suicidal ideation Skin exam: PRESENT: dry, intact, warm. ABSENT: cyanosis, rash Results Laboratory Results: 04/20/19 04:52 04/20/19 04:52 04/20/19 04/20/19 04:52 04:52 WBC 9.4 RBC 4.72 Hgb 9.8 L Hct 32.1 L MCV 68 L MCH 20.8 L MCHC 30.5 L RDW 21.9 H Plt Count 373 Seg Neutrophils % 66.2 Lymphocytes % 24.2 Monocytes % 8.9 Eosinophils % 0.2 Basophils % 0.5 Absolute Neutrophils 6.2 Absolute Lymphocytes 2.3 Absolute Monocytes 0.8 Absolute Eosinophils 0.0 Absolute Basophils 0.1 Sodium 139.8 Potassium 3.3 L Chloride 101 Carbon Dioxide 30 Anion Gap 9 BUN 10 Creatinine 0.87 Est GFR ( Amer) > 60 Est GFR (Non-Af Amer) > 60 Glucose 89 Calcium 8.9 04/19/19 04/19/19 04/19/19 06:40 06:40 06:40 Creatine Kinase 87 CK-MB (CK-2) 0.46 Troponin I 0.028 NT-Pro-B Natriuret Pep 1690 H 04/19/19 04/20/19 04/20/19 18:45 00:31 04:52 Creatine Kinase 77 73 CK-MB (CK-2) Troponin I NT-Pro-B Natriuret Pep 1490 H Impressions: Chest X-Ray 04/19/19 06:31 IMPRESSION: CARDIAC ENLARGEMENT. VASCULAR CONGESTION. Assessment and Plan - Diagnosis (1) Pulmonary edema cardiac cause Is this a current diagnosis for this admission?: Yes Plan: 04/19/2019-admit to [facility]. At this time will diurese patient with 40 mg IV Lasix every 8 hours until we see a bump in her creatinine. We will obtain a cardiac consult with Dr. Du. Will obtain echocardiogram. I will place patient on Coreg 3.125 mg p.o. twice daily and lisinopril 2.5 mill grams p.o. daily I will titrate these to effect. Will await echocardiogram it changes plan of care as appropriate 04/20/2019-seen by Dr. Du. We will continue diuresis with Lasix, he switched from Coreg to metoprolol 50 mg p.o. twice daily and increase her lisinopril to 2.5 mill grams p.o. daily. Awaiting echocardiogram. We will continue to follow with Dr. Du and his regulations. (2) High blood pressure Qualifiers: Hypertension type: essential hypertension Qualified Code(s): I10 - Essential (primary) hypertension Is this a current diagnosis for this admission?: Yes Plan: 04/20/2019-metoprolol 50 mg p.o. twice daily and increase lisinopril to [address] Du. (3) Non-compliance with treatment Is this a current diagnosis for this admission?: Yes Plan: 04/20/2019-continue to educate about the importance of compliance with medical treatment. - Time Time Spent with patient: 15-24 minutes - Inpatient Certification Based on my medical assessment, after consideration of the patient's comorbidities, presenting symptoms, or acuity I expect that the services needed warrant INPATIENT care.: Yes I certify that my determination is in accordance with my understanding of Medicare's requirements for reasonable and necessary INPATIENT services [42 CFR 412.3e].: Yes Medical Necessity: Other - IV Lasix, echocardiogram and cardiology consult.
[2019-04-20] MEDS: OXYCODONE-ACETAMINOPHEN 5-325 MG TABLET PO PRN ×2 (11:54→21:08)
[2019-04-20] MEDS: ZOLPIDEM TARTRATE 5 MG TABLET PO SCH (21:08)
--- NOTE | 2019-04-20 23:04 | Progress Note ---
Provider Note Provider Note: CARDIOLOGY PROGRESS NOTE by Dr. Leeann Du on 04/20/2019. SUBJECTIVE: The patient states that she is slightly better. She still has cough. But no wheezing. She still has orthopnea. There is no PND. Her leg edema has resolved. The patient denies any chest pain or discomfort. There is no arrhythmia seen on the monitor. Physical EXAMINATION: The patient is moderately obese. She is well-groomed. Selected Entries 04/20/19 12:09 Temperature 97.8 F Temperature Oral Source Pulse Rate 98 Respiratory 20 Rate Blood Pressure 105/59 L Blood Pressure 74 Mean BP Location Right Arm BP Position Sitting O2 Sat by Pulse 97 Oximetry Oxygen Delivery Room Air Method HEAD: Is atraumatic. Normocephalic. EYES: Pupils are equal round regular. Reactive to light accommodation. Extraocular movements are normal. There is no conjunctival pallor. There is no scleral icterus. EARS: Tympanic membranes are intact. External auditory canals are clear. NOSE: There is no deviated nasal septum. There is no inflammation nasal mucous membrane. MOUTH:. Mucous membranes of mouth are moist. Tongue is moist. There is no ulcers. There is no bleeding from the gums OROPHARYNX: Modified Mallampati classification 3 THROAT: There is no redness of the oropharynx. There is no exudates. SKIN: There is no particular ecchymosis. There is no skin lesions or skin rashes. NECK: Is supple. There is mild JVD present. Carotids are equal there is no bruit. There is no lymphadenopathy. There is no goiter. There is no accessory muscle respiration use. There is no neck stiffness. Trachea central. LUNGS: There is bibasilar fine rales of CHF. There is definite evidence of COPD by exam. There is diminished air entry and prolonged expiration. Today there is no rhonchi rales or wheezing. On percussion there is hyperresonance. On palpation there is no chest wall tenderness. HEART: S1-S2 is heard. There is no S3 gallop. There is no S4 gallop. There is systolic murmur left sternal border and the apex. There is no rub. ABDOMEN: Is obese. There is no hep atosplenomegaly. Bowel sounds are well heard. There is no tender areas of masses. There is left colostomy bag present. EXTREMITIES: Femorals are deep. Femorals are diminished. There is no femoral bruits. Leg pulses are diminished. There is trace pedal edema. [The patient states edema is much marked when she came in, and retreat (come down]. There is no sinus or clubbing. There is no DVT or cellulitis. There is no calf tenderness. WASTE COLLECTOR: The patient is conscious awake alert oriented x3 with no focal deficits. PSYCHIATRIC: The patient judgment insight are intact her affect is normal. Labs- All tests 24 hr 04/20/19 04/20/19 04/20/19 04:52 04:52 04:52 WBC 9.4 RBC 4.72 Hgb 9.8 L Hct 32.1 L MCV 68 L MCH 20.8 L MCHC 30.5 L RDW 21.9 H Plt Count 373 Seg Neutrophils % 66.2 Lymphocytes % 24.2 Monocytes % 8.9 Eosinophils % 0.2 Basophils % 0.5 Absolute Neutrophils 6.2 Absolute Lymphocytes 2.3 Absolute Monocytes 0.8 Absolute Eosinophils 0.0 Absolute Basophils 0.1 Sodium 139.8 Potassium 3.3 L Chloride 101 Carbon Dioxide 30 Anion Gap 9 BUN 10 Creatinine 0.87 Est GFR ( Amer) > 60 Est GFR (Non-Af Amer) > 60 Glucose 89 Calcium 8.9 NT-Pro-B Natriuret Pep 1490 H Chest X-Ray 04/19/19 06:31 IMPRESSION: CARDIAC ENLARGEMENT. VASCULAR CONGESTION. IMPRESSION/RECOMMENDATION: 1. Acute on chronic left ventricular and right ventricular systolic failure: In view of the patient's smoking history, and possible presence of COPD as per clinical exam. Would recommend switch to Toprol-XL 50 mg p.o. every 12 hours. Would also increase the patient's lisinopril to 5 mg p.o. every 12 hours. Continue Lasix 2. Suspect recurrence of cardiomyopathy: This may be due to the patient untreated hypertension. We will get his echocardiogram after the patient is well compensated from her biventricular heart failure. 3. Hypertension: Her blood pressure is vastly improved continue current medications, but in the doses mentioned above. 4. Chronic obstructive pulmonary disease: Suspect acute exacerbation. Continue inhalers and steroids. 5. Cough she is poor when the patient lies down, much improved when the patient sits up. This is consistent with PND equivalent 6. History of tobacco abuse: The patient quit smoking about a month ago. Smoking cessation counseling given. Patient encouraged to continue to refrain from stopping smoking. 7. Symptoms suggestive of obstructive sleep apnea: Patient would be recommended to have outpatient sleep study. 8. Hyperlipidemia: Continue statins. 9. History of recent diverticulitis, status post colectomy and colostomy bag placement recently. 10. Obesity: Later as an outpatient would recommend weight reduction techniques and counseling. Medications reviewed. Medications adjusted. Management plan discussed with attending physician on the case. Medical decision making is of high complexity. Will get records from [facility]. 60 minutes spent on this patient with more than 50% of time spent in direct patient care. Will follow
[2019-04-21] MEDS: LISINOPRIL 5 MG TABLET PO SCH ×3 (00:06→21:25)
[2019-04-21] MEDS: FUROSEMIDE INJ/PF 40 MG/4 ML SDV IV SCH ×3 (05:40→21:29)
[2019-04-21] MEDS: OXYCODONE-ACETAMINOPHEN 5-325 MG TABLET PO PRN ×3 (06:17→19:08)
[2019-04-21 07:06] LABS: ABSOLUTE BASOPHILS # (AUTO) 0.1 10^3/uL (0.0-0.2); ABSOLUTE EOSINOPHILS # (AUTO) 0.1 10^3/uL (0.0-0.6); ABSOLUTE LYMPHOCYTES (AUTO) 2.5 10^3/uL (0.5-4.7); ABSOLUTE MONOCYTES (AUTO) 0.7 10^3/uL (0.1-1.4); ABSOLUTE NEUT (AUTO) 5.6 10^3/uL (1.7-8.2); BASOPHILS % (AUTO) 0.6 % (0-2); EOSINOPHILS % (AUTO) 1.4 % (0-6); HEMATOCRIT 32.9 % (36.0-47.0); HEMOGLOBIN 10.2 g/dL (12.0-15.5); LYMPHOCYTES % (AUTO) 28.1 % (13-45); MEAN CORPUSCULAR HEMOGLOBIN 20.8 pg (27.0-33.4); MEAN CORPUSCULAR HGB CONC 31.1 g/dL (32.0-36.0); MEAN CORPUSCULAR VOLUME 67 fl (80-97); MONOCYTES % (AUTO) 7.6 % (3-13); PLATELET COUNT 362 10^3/uL (150-450); RED BLOOD COUNT 4.92 10^6/uL (3.72-5.28); RED CELL DISTRIBUTION WIDTH 21.6 % (11.5-14.0); SEGMENTED NEUTROPHILS % (AUTO) 62.3 % (42-78); TOTAL CELLS COUNTED % (AUTO) 100 %; WHITE BLOOD COUNT 8.9 10^3/uL (4.0-10.5)
[2019-04-21 07:27] LABS: ANION GAP 8 (5-19); BLOOD UREA NITROGEN 15 mg/dL (7-20); CALCIUM 8.8 mg/dL (8.4-10.2); CARBON DIOXIDE 30 mmol/L (22-30); CHLORIDE 101 mmol/L (98-107); GLUCOSE 88 mg/dL (75-110); POTASSIUM 3.5 mmol/L (3.6-5.0); SODIUM 138.8 mmol/L (137-145)
[2019-04-21] MEDS: METOPROLOL SUCCINATE 50 MG TAB.SR.24H PO SCH ×2 (09:16→21:29)
--- NOTE | 2019-04-21 11:11 | Progress Note Acknowledgement ---
Progress Note Acknowledgement Progess Note Acknowledgement: I, the undersigned member of the medical staff with appropriate privileges and with supervisory authority over [Marco Bateman], a dependent practice allied health professional, acknowledge that I have reviewed the progress notes entered on this patient, and in my professional judgment believe that the assessment made and/or any care evidenced was appropriate
--- NOTE | 2019-04-21 11:14 | PDOC PROGRESS REPORT ---
Subjective Progress Note for:: 04/21/19 Subjective:: Stoma pain mostly the skin surrounding the stoma 04/21/2019-no complaints this a.m. Reason For Visit: ACUTE ON CHRONIC CONGESTIVE HEART FAILURE UNKNOWN Physical Exam Vital Signs: Temp Pulse Resp BP Pulse Ox 97.8 F 97 16 110/69 98 04/21/19 08:35 04/21/19 08:35 04/21/19 08:35 04/21/19 08:35 04/21/19 08:35 Intake & Output 04/20/19 04/21/19 04/22/19 06:59 06:59 06:59 Intake Total 1666 2512 Output Total 3406 2250 Balance -1740 262 Weight 98.9 kg 101 kg General appearance: PRESENT: no acute distress, well-developed, well-nourished Head exam: PRESENT: atraumatic, normocephalic Eye exam: PRESENT: conjunctiva pink, EOMI, PERRLA. ABSENT: scleral icterus Ear exam: PRESENT: normal external ear exam Mouth exam: PRESENT: moist, tongue midline Neck exam: ABSENT: carotid bruit, JVD, lymphadenopathy, thyromegaly Respiratory exam: PRESENT: clear to auscultation [place]. ABSENT: rales, rhonchi, wheezes Cardiovascular exam: PRESENT: RRR. ABSENT: diastolic murmur, rubs, systolic murmur Pulses: PRESENT: normal dorsalis pedis pul Vascular exam: PRESENT: normal capillary refill GI/Abdominal exam: PRESENT: normal bowel sounds, soft, other - Stoma with ostomy present. ABSENT: distended, guarding, mass, organolmegaly, rebound, tenderness Rectal exam: PRESENT: deferred Extremities exam: PRESENT: full ROM. ABSENT: calf tenderness, clubbing, pedal edema Neurological exam: PRESENT: alert, awake, oriented to person, oriented to place, oriented to time, oriented to situation, CN II-XII grossly intact. ABSENT: motor sensory deficit Psychiatric exam: PRESENT: appropriate affect, normal mood. ABSENT: homicidal ideation, suicidal ideation Skin exam: PRESENT: dry, intact, warm. ABSENT: cyanosis, rash Results Laboratory Results: 04/21/19 06:36 04/21/19 06:36 04/21/19 04/21/19 06:36 06:36 WBC 8.9 RBC 4.92 Hgb 10.2 L Hct 32.9 L MCV 67 L MCH 20.8 L MCHC 31.1 L RDW 21.6 H Plt Count 362 Seg Neutrophils % 62.3 Lymphocytes % 28.1 Monocytes % 7.6 Eosinophils % 1.4 Basophils % 0.6 Absolute Neutrophils 5.6 Absolute Lymphocytes 2.5 Absolute Monocytes 0.7 Absolute Eosinophils 0.1 Absolute Basophils 0.1 Sodium 138.8 Potassium 3.5 L Chloride 101 Carbon Dioxide 30 Anion Gap 8 BUN 15 Creatinine 0.90 Est GFR ( Amer) > 60 Est GFR (Non-Af Amer) > 60 Glucose 88 Calcium 8.8 04/19/19 04/19/19 04/19/19 06:40 06:40 06:40 Creatine Kinase 87 CK-MB (CK-2) 0.46 Troponin I 0.028 NT-Pro-B Natriuret Pep 1690 H 04/19/19 04/20/19 04/20/19 18:45 00:31 04:52 Creatine Kinase 77 73 CK-MB (CK-2) Troponin I NT-Pro-B Natriuret Pep 1490 H Impressions: Chest X-Ray 04/19/19 06:31 IMPRESSION: CARDIAC ENLARGEMENT. VASCULAR CONGESTION. Assessment and Plan - Diagnosis (1) Pulmonary edema cardiac cause Is this a current diagnosis for this admission?: Yes Plan: 04/19/2019-admit to [facility]. At this time will diurese patient with 40 mg IV Lasix every 8 hours until we see a bump in her creatinine. We will obtain a cardiac consult with Dr. Du. Will obtain echocardiogram. I will place patient on Coreg 3.125 mg p.o. twice daily and lisinopril 2.5 mill grams p.o. daily I will titrate these to effect. Will await echocardiogram it changes plan of care as appropriate 04/20/2019-seen by Dr. Du. We will continue diuresis with Lasix, he switched from Coreg to metoprolol 50 mg p.o. twice daily and increase her lisinopril to 5 mill grams p.o. daily. Awaiting echocardiogram. We will continue to follow with Dr. Du and his regulations. 04/21/2019-improved. Patient being followed by Dr. Du. Will await his further recommendations. (2) High blood pressure Qualifiers: Hypertension type: essential hypertension Qualified Code(s): I10 - Essential (primary) hypertension Is this a current diagnosis for this admission?: Yes Plan: 04/20/2019-metoprolol 50 mg p.o. twice daily and increase lisinopril to [address] Du. 04/21/2019-stable continue to follow. (3) Non-compliance with treatment Is this a current diagnosis for this admission?: Yes Plan: 04/20/2019-continue to educate about the importance of compliance with medical treatment. 04/21/2019-continue to follow and educate about importance of compliance with medical therapy. (4) Sleep apnea Is this a current diagnosis for this admission?: Yes Plan: 04/21/2019-recommend outpatient sleep study per Dr. Du - Time Time Spent with patient: 15-24 minutes - Inpatient Certification Based on my medical assessment, after consideration of the patient's comorbidities, presenting symptoms, or acuity I expect that the services needed warrant INPATIENT care.: Yes I certify that my determination is in accordance with my understanding of Medicare's requirements for reasonable and necessary INPATIENT services [42 CFR 412.3e].: Yes Medical Necessity: Other - Echocardiogram continue to follow with cardiology
[2019-04-21] MEDS: ZOLPIDEM TARTRATE 5 MG TABLET PO SCH (21:29)
--- NOTE | 2019-04-21 21:46 | Progress Note ---
Provider Note Provider Note: CARDIOLOGY PROGRESS NOTE by Dr. Leeann Du on 04/21/2019. SUBJECTIVE: The patient states that shortness of breath is much improved and almost resolved although she has not ambulated. She still has some orthopnea. Although his cough is better she still has cough which is nonproductive and dry. She has no wheezing. She states the cough is not positional hence it raise the doubt whether the cough is being prolonged due to lisinopril. There is no chest pain or discomfort. There is no leg edema today. There is no PND. There is no arrhythmia seen on the monitor. Her records from [facility] was received, but he does not have any cardiac records, and pertains only to her admission for diverticulitis and exercise surgery and colostomy bag placement. 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 PHYSICAL EXAMINATION: The patient is moderately obese. In no acute distress. She is well-groomed. Selected Entries 04/21/19 04/21/19 19:30 20:21 Temperature 98.2 F Pulse Rate 97 Respiratory 18 Rate Blood Pressure 112/64 Blood Pressure 80 Mean O2 Sat by Pulse 99 Oximetry Oxygen Delivery Room Air Method ( includes room air) HEAD: Is atraumatic. Normocephalic. EYES: Pupils are equal round regular. Reactive to light accommodation. Extraocular movements are normal. There is no conjunctival pallor. There is no scleral icterus. EARS: Tympanic membranes are intact. External auditory canals are clear. NOSE: There is no deviated nasal septum. There is no inflammation nasal mucous membrane. MOUTH:. Mucous membranes of mouth are moist. Tongue is moist. There is no ulcers. There is no bleeding from the gums OROPHARYNX: Modified Mallampati classification 3 THROAT: There is no redness of the oropharynx. There is no exudates. SKIN: There is no particular ecchymosis. There is no skin lesions or skin rashes. NECK: Is supple. There is mild JVD present. Carotids are equal there is no bruit. There is no lymphadenopathy. There is no goiter. There is no accessory muscle respiration use. There is no neck stiffness. Trachea central. LUNGS: There is bibasilar fine rales of CHF. There is definite evidence of COPD by exam. There is diminished air entry and prolonged expiration. Today there is no rhonchi rales or wheezing. On percussion there is hyperresonance. On palpation there is no chest wall tenderness. HEART: S1-S2 is heard. There is no S3 gallop. There is no S4 gallop. There is systolic murmur left sternal border and the apex. There is no rub. ABDOMEN: Is obese. There is no hepatosplenomegaly. Bowel sounds are well heard. There is no tender areas of masses. There is left colostomy bag present. EXTREMITIES: Femorals are deep. Femorals are diminished. There is no femoral bruits. Leg pulses are diminished. There is trace pedal edema. [The patient states edema is much marked when she came in, and retreat (come down]. There is no sinus or clubbing. There is no DVT or cellulitis. There is no calf tenderness. 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 PSYCHIATRIC: The patient judgment insight are intact her affect is normal. Labs- All tests 24 hr 04/21/19 04/21/19 06:36 06:36 WBC 8.9 RBC 4.92 Hgb 10.2 L Hct 32.9 L MCV 67 L MCH 20.8 L MCHC 31.1 L RDW 21.6 H Plt Count 362 Seg Neutrophils % 62.3 Lymphocytes % 28.1 Monocytes % 7.6 Eosinophils % 1.4 Basophils % 0.6 Absolute Neutrophils 5.6 Absolute Lymphocytes 2.5 Absolute Monocytes 0.7 Absolute Eosinophils 0.1 Absolute Basophils 0.1 Sodium 138.8 Potassium 3.5 L Chloride 101 Carbon Dioxide 30 Anion Gap 8 BUN 15 Creatinine 0.90 Est GFR ( Amer) > 60 Est GFR (Non-Af Amer) > 60 Glucose 88 Calcium 8.8 Chest X-Ray 04/19/19 06:31 IMPRESSION: CARDIAC ENLARGEMENT. VASCULAR CONGESTION. IMPRESSION/RECOMMENDATION: 1. Acute on chronic left ventricular and right ventricular systolic failure: In view of the patient's smoking history, and possible presence of COPD as per clinical exam. Would recommend switch to Toprol-XL 50 mg p.o. every 12 hours. Will decrease the patient's Lasix. As mentioned earlier will switch to Cozaar at the low-dose. At present heart failure seems to be compensated. We will check a chest x-ray in the a.m. 2. Suspect recurrence of cardiomyopathy: This may be due to the patient untreated hypertension. We will get echocardiogram tomorrow.. 3. Hypertension: Her blood pressure is vastly improved continue current medications, but in the doses mentioned above. But the patient did not receive a dose of lisinopril last night. We will continue the patient's Toprol-XL the same dose, and switch to Cozaar 25 mg p.o. every 12 hours. 4. Chronic obstructive pulmonary disease: Suspect acute exacerbation. Continue inhalers and steroids. 5. Cough is dry, and also improved is now not related to any position. This raises the question of whether lisinopril is also a factor the patient's cough. We will stop the patient's lisinopril and start the patient on Cozaar.. 6. History of tobacco abuse: The patient quit smoking about a month ago. Smoking cessation counseling given. Patient encouraged to continue to refrain from stopping smoking. 7. Symptoms suggestive of obstructive sleep apnea: Patient would be recommended to have outpatient sleep study. 8. Hypokalemia: Replace potassium. 9. History of recent diverticulitis, status post colectomy and colostomy bag placement recently. 10. Hyperlipidemia: Continue statins. 11. Obesity: Later as an outpatient would recommend weight reduction techniques and counseling. Medications reviewed. Medications adjusted. Management plan discussed with attending physician on the case. Medical decision making is of high complexity. Will get records from [facility]. 60 minutes spent on this patient with more than 50% of time spent in direct patient care. Will follow
[2019-04-21] MEDS: LOSARTAN POTASSIUM 25 MG TABLET PO SCH (22:50)
[2019-04-22] MEDS: OXYCODONE-ACETAMINOPHEN 5-325 MG TABLET PO PRN ×4 (03:58→22:30)
[2019-04-22 05:05] LABS: ABSOLUTE EOSINOPHILS # (AUTO) 0.2 10^3/uL (0.0-0.6); ABSOLUTE LYMPHOCYTES (AUTO) 2.9 10^3/uL (0.5-4.7); ABSOLUTE MONOCYTES (AUTO) 0.7 10^3/uL (0.1-1.4); ABSOLUTE NEUT (AUTO) 6.2 10^3/uL (1.7-8.2); BASOPHILS % (AUTO) 0.4 % (0-2); HEMATOCRIT 33.8 % (36.0-47.0); HEMOGLOBIN 10.4 g/dL (12.0-15.5); LYMPHOCYTES % (AUTO) 28.9 % (13-45); MEAN CORPUSCULAR HEMOGLOBIN 20.6 pg (27.0-33.4); MEAN CORPUSCULAR HGB CONC 30.8 g/dL (32.0-36.0); MEAN CORPUSCULAR VOLUME 67 fl (80-97); MONOCYTES % (AUTO) 7.2 % (3-13); PLATELET COUNT 412 10^3/uL (150-450); RED BLOOD COUNT 5.06 10^6/uL (3.72-5.28); RED CELL DISTRIBUTION WIDTH 20.9 % (11.5-14.0); SEGMENTED NEUTROPHILS % (AUTO) 61.5 % (42-78); TOTAL CELLS COUNTED % (AUTO) 100 %
[2019-04-22 05:21] LABS: ANION GAP 11 (5-19); BLOOD UREA NITROGEN 17 mg/dL (7-20); CALCIUM 9.2 mg/dL (8.4-10.2); CARBON DIOXIDE 27 mmol/L (22-30); CHLORIDE 101 mmol/L (98-107); GLUCOSE 89 mg/dL (75-110); SODIUM 139.3 mmol/L (137-145)
[2019-04-22] MEDS: FUROSEMIDE INJ/PF 40 MG/4 ML SDV IV SCH ×3 (05:44→17:43)
[2019-04-22] MEDS: LOSARTAN POTASSIUM 25 MG TABLET PO SCH ×2 (10:06→21:21)
[2019-04-22] MEDS: METOPROLOL SUCCINATE 50 MG TAB.SR.24H PO SCH ×2 (10:06→21:21)
--- NOTE | 2019-04-22 14:09 | PDOC PROGRESS REPORT ---
Subjective Progress Note for:: 04/22/19 Subjective:: JI COBURN is a 29 year old female with a known history of congestive heart failure. From description patient gave it sounds like it is left-sided systolic failure. Patient had been on medications previously for this but was told at some point in time "not to take anymore medications because it was completely reversed". Patient had a partial colectomy with ostomy placed on March 08 secondary to a ruptured diverticulum. Patient suspects that this is what caused all of her problems as she states she has not had heart problems although she has had echoes in previous medications for congestive heart failure. Patient also has gross cardiomegaly on chest x-ray. Patient has had no treatment prior to arrival all activities been aggravating factor. 04/22/2019. No acute events overnight, shortness of breath has improved, patient had her echo done today. Reason For Visit: ACUTE ON CHRONIC CONGESTIVE HEART FAILURE UNKNOWN Physical Exam Vital Signs: Temp Pulse Resp BP Pulse Ox 98.1 F 87 16 116/68 97 04/22/19 12:29 04/22/19 12:29 04/22/19 12:29 04/22/19 12:29 04/22/19 12:29 Intake & Output 04/21/19 04/22/19 04/23/19 06:59 06:59 06:59 Intake Total 2512 1440 Output Total 2250 2100 Balance 262 -660 Weight 101 kg 101.4 kg General appearance: PRESENT: no acute distress, obese, well-developed, well- nourished Respiratory exam: PRESENT: clear to auscultation [place]. ABSENT: rales, rhonchi, wheezes Cardiovascular exam: PRESENT: RRR. ABSENT: diastolic murmur, rubs, systolic murmur Pulses: PRESENT: normal dorsalis pedis pul GI/Abdominal exam: PRESENT: normal bowel sounds, soft. ABSENT: distended, guarding, mass, organolmegaly, rebound, tenderness Neurological exam: PRESENT: alert, awake, oriented to person, oriented to place, oriented to time, oriented to situation, CN II-XII grossly intact. ABSENT: motor sensory deficit Results Laboratory Results: 04/22/19 04:11 04/22/19 04:11 04/22/19 04/22/19 04:11 04:11 WBC 10.0 RBC 5.06 Hgb 10.4 L Hct 33.8 L MCV 67 L MCH 20.6 L MCHC 30.8 L RDW 20.9 H Plt Count 412 Seg Neutrophils % 61.5 Lymphocytes % 28.9 Monocytes % 7.2 Eosinophils % 2.0 Basophils % 0.4 Absolute Neutrophils 6.2 Absolute Lymphocytes 2.9 Absolute Monocytes 0.7 Absolute Eosinophils 0.2 Absolute Basophils 0.0 Sodium 139.3 Potassium 4.0 Chloride 101 Carbon Dioxide 27 Anion Gap 11 BUN 17 Creatinine 0.91 Est GFR ( Amer) > 60 Est GFR (Non-Af Amer) > 60 Glucose 89 Calcium 9.2 04/19/19 04/19/19 04/19/19 06:40 06:40 06:40 Creatine Kinase 87 CK-MB (CK-2) 0.46 Troponin I 0.028 NT-Pro-B Natriuret Pep 1690 H 04/19/19 04/20/19 04/20/19 18:45 00:31 04:52 Creatine Kinase 77 73 CK-MB (CK-2) Troponin I NT-Pro-B Natriuret Pep 1490 H Impressions: Chest X-Ray 04/19/19 06:31 IMPRESSION: CARDIAC ENLARGEMENT. VASCULAR CONGESTION. Assessment and Plan - Diagnosis (1) Acute exacerbation of CHF (congestive heart failure) Qualifiers: Heart failure type: systolic Qualified Code(s): I50.23 - Acute on chronic systolic (congestive) heart failure Is this a current diagnosis for this admission?: Yes Plan: Acute on chronic systolic heart failure likely due to medication noncompliance. SBP 02989, T-max 98.1, pulse 80s, RR 1618, SPO2 97 RA. I/O 1440/2100 balance -660. Weight 101.4 down from 104.1 on admission. Continue volume restriction, strict in and out, cardiac diet, daily weights. Continue losartan 25 mg p.o. twice daily, Toprol-XL 50 mg p.o. twice daily, Lasix 40 mg IV twice daily. Cardiology following. Recommendations noted. Pending echo. (2) Hypertension Is this a current diagnosis for this admission?: Yes Plan: Optimized. History of uncontrolled hypertension. Continue losartan 25 mg p.o. twice daily, Toprol-XL 50 mg p.o. twice daily, Lasix 40 mg IV twice daily. Monitor vitals, adjust meds as needed. Outpatient PCP follow-up. (3) Cardiomyopathy Is this a current diagnosis for this admission?: Yes Plan: Likely due to uncontrolled hypertension. As per #1. (4) COPD (chronic obstructive pulmonary disease) Is this a current diagnosis for this admission?: Yes Plan: Not on home O2. Not exacerbated on this admission. Continue supplemental oxygen, duo nebs, PRN BiPAP, LABA's/LAMA's. Outpatient PCP follow-up. (5) Tobacco abuse Is this a current diagnosis for this admission?: Yes Plan: Counseled on quitting. NicoDerm patch will be made available. She has stated that she is not smoking anymore. (6) History of diverticulitis Is this a current diagnosis for this admission?: No Plan: History of recent diverticulitis status post colostomy and colostomy bag placement. Continue colostomy care. Outpatient GI follow-up. (7) Hyperlipidemia Is this a current diagnosis for this admission?: Yes Plan: Continue statins. Diet and lifestyle modification recommended. (8) Obesity Qualifiers: Obesity classification: adult class 2 (BMI 35 - 39.9) Is this a current diagnosis for this admission?: Yes Plan: Diet and lifestyle modification recommended. (9) Hypokalemia Is this a current diagnosis for this admission?: Yes Plan: No EKG changes. Continue telemetry. Potassium level tomorrow. Replace as needed. (10) SOLO (obstructive sleep apnea) Is this a current diagnosis for this admission?: Yes Plan: Refuses to use CPAP. Outpatient nocturnal polysomnography. Outpatient PCP follow-up.
[2019-04-22] MEDS: ZOLPIDEM TARTRATE 5 MG TABLET PO SCH (21:21)
[2019-04-23 04:15] LABS: ABSOLUTE BASOPHILS # (AUTO) 0.1 10^3/uL (0.0-0.2); ABSOLUTE EOSINOPHILS # (AUTO) 0.2 10^3/uL (0.0-0.6); ABSOLUTE LYMPHOCYTES (AUTO) 2.8 10^3/uL (0.5-4.7); ABSOLUTE MONOCYTES (AUTO) 0.9 10^3/uL (0.1-1.4); ABSOLUTE NEUT (AUTO) 6.5 10^3/uL (1.7-8.2); BASOPHILS % (AUTO) 0.7 % (0-2); EOSINOPHILS % (AUTO) 1.8 % (0-6); HEMATOCRIT 32.2 % (36.0-47.0); HEMOGLOBIN 9.9 g/dL (12.0-15.5); LYMPHOCYTES % (AUTO) 26.6 % (13-45); MEAN CORPUSCULAR HEMOGLOBIN 20.5 pg (27.0-33.4); MEAN CORPUSCULAR HGB CONC 30.8 g/dL (32.0-36.0); MEAN CORPUSCULAR VOLUME 67 fl (80-97); MONOCYTES % (AUTO) 8.9 % (3-13); PLATELET COUNT 365 10^3/uL (150-450); RED BLOOD COUNT 4.84 10^6/uL (3.72-5.28); RED CELL DISTRIBUTION WIDTH 21.3 % (11.5-14.0); TOTAL CELLS COUNTED % (AUTO) 100 %; WHITE BLOOD COUNT 10.4 10^3/uL (4.0-10.5)
[2019-04-23 04:32] LABS: ALANINE AMINOTRANSFERASE 22 U/L (9-52); ALBUMIN 3.5 g/dL (3.5-5.0); ALKALINE PHOSPHATASE 83 U/L (38-126); ANION GAP 9 (5-19); ASPARTATE AMINO TRANSFERASE 17 U/L (14-36); BILIRUBIN,DIRECT 0.2 mg/dL (0.0-0.4); BILIRUBIN,TOTAL 0.2 mg/dL (0.2-1.3); BLOOD UREA NITROGEN 21 mg/dL (7-20); CALCIUM 9.1 mg/dL (8.4-10.2); CARBON DIOXIDE 29 mmol/L (22-30); CHLORIDE 101 mmol/L (98-107); GLUCOSE 91 mg/dL (75-110); POTASSIUM 3.5 mmol/L (3.6-5.0); SODIUM 138.9 mmol/L (137-145); TOTAL PROTEIN 6.6 g/dL (6.3-8.2)
--- NOTE | 2019-04-23 09:59 | Progress Note ---
Provider Note Provider Note: CARDIOLOGY PROGRESS NOTE by Dr.Lakshmi Du on 04/23/19. SUBJECTIVE: PHYSICAL EXAMINATION : Moderately Obese.In no acute distresss. Selected Entries 04/23/19 07:36 Temperature 97.8 F Temperature Oral Source Pulse Rate 88 Respiratory 17 Rate Blood Pressure 114/48 L Blood Pressure 70 Mean BP Location Left Arm BP Position Supine O2 Sat by Pulse 94 Oximetry Oxygen Delivery Room Air Method HEAD: Is atraumatic. Normocephalic. EYES: Pupils are equal round regular. Reactive to light accommodation. Extraocular movements are normal. There is no conjunctival pallor. There is no scleral icterus. EARS: Tympanic membranes are intact. External auditory canals are clear. NOSE: There is no deviated nasal septum. There is no inflammation nasal mucous membrane. MOUTH:. Mucous membranes of mouth are moist. Tongue is moist. There is no ulcers. There is no bleeding from the gums OROPHARYNX: Modified Mallampati classification 3 THROAT: There is no redness of the oropharynx. There is no exudates. SKIN: There is no particular ecchymosis. There is no skin lesions or skin rashes. NECK: Is supple. There is mild JVD present. Carotids are equal there is no bruit. There is no lymphadenopathy. There is no goiter. There is no accessory muscle respiration use. There is no neck stiffness. Trachea central. LUNGS: There is bibasilar fine rales of CHF. There is definite evidence of COPD by exam. There is diminished air entry and prolonged expiration. Today there is no rhonchi rales or wheezing. On percussion there is hyperresonance. On palpation there is no chest wall tenderness. HEART: S1-S2 is heard. There is no S3 gallop. There is no S4 gallop. There is systolic murmur left sternal border and the apex. There is no rub. ABDOMEN: Is obese. There is no hepatosplenomegaly. Bowel sounds are well heard. There is no tender areas of masses. There is left colostomy bag present. EXTREMITIES: Femorals are deep. Femorals are diminished. There is no femoral bruits. Leg pulses are diminished. There is trace pedal edema. [The patient states edema is much marked when she came in, and retreat (come down]. There is no sinus or clubbing. There is no DVT or cellulitis. There is no calf tenderness. 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 PSYCHIATRIC: The patient judgment insight are intact her affect is normal. Labs- All tests 24 hr 04/23/19 04/23/19 03:55 03:55 WBC 10.4 RBC 4.84 Hgb 9.9 L Hct 32.2 L MCV 67 L MCH 20.5 L MCHC 30.8 L RDW 21.3 H Plt Count 365 Seg Neutrophils % 62.0 Lymphocytes % 26.6 Monocytes % 8.9 Eosinophils % 1.8 Basophils % 0.7 Absolute Neutrophils 6.5 Absolute Lymphocytes 2.8 Absolute Monocytes 0.9 Absolute Eosinophils 0.2 Absolute Basophils 0.1 Sodium 138.9 Potassium 3.5 L Chloride 101 Carbon Dioxide 29 Anion Gap 9 BUN 21 H Creatinine 0.88 Est GFR ( Amer) > 60 Est GFR (Non-Af Amer) > 60 Glucose 91 Calcium 9.1 Magnesium 1.9 Total Bilirubin 0.2 Direct Bilirubin 0.2 Neonat Total Bilirubin Not Reportable Neonat Direct Bilirubin Not Reportable Neonat Indirect Bili Not Reportable AST 17 ALT 22 Alkaline Phosphatase 83 Total Protein 6.6 Albumin 3.5 Chest X-Ray 04/19/19 06:31 IMPRESSION: CARDIAC ENLARGEMENT. VASCULAR CONGESTION. No accurate I& O's. IMPRESSION/RECOMMENDATION: 1. Acute on chronic left ventricular and right ventricular systolic failure: In view of the patient's smoking history, and possible presence of COPD as per clinical exam. Would recommend switch to Toprol-XL 50 mg p.o. every 12 hours. Will decrease the patient's Lasix. As mentioned earlier will switch to Cozaar at the low-dose. At present heart failure seems to be compensated. Will change to Po Lasix. 2. Recurrence of cardiomyopathy: This may be due to the patient untreated hypertension. Moderate to severe LV systolic dysfunction. 3. Hypertension: Her blood pressure is vastly improved continue current medications, but in the doses mentioned above. But the patient did not receive a dose of lisinopril last night. We will continue the patient's Toprol-XL the same dose, and switch to Cozaar 25 mg p.o. every 12 hours. Her BP is stable 4. Chronic obstructive pulmonary disease: Suspect acute exacerbation. Continue inhalers and steroids. Will get Patient CHF education. 5. Cough is dry, and also improved is now not related to any position. This raises the question of whether lisinopril is also a factor the patient's cough. We will stop the patient's lisinopril and start the patient on Cozaar.. 6. History of tobacco abuse: The patient quit smoking about a month ago. Smoking cessation counseling given. Patient encouraged to continue to refrain from stopping smoking. 7. Symptoms suggestive of obstructive sleep apnea: Patient would be recommended to have outpatient sleep study. 8. Hypokalemia: Replace potassium. 9. History of recent diverticulitis, status post colectomy and colostomy bag placement recently. 10. Hyperlipidemia: Continue statins. 11. Obesity: Later as an outpatient would recommend weight reduction techniques and counseling. Medications reviewed. Medications adjusted. Management plan discussed with attending physician on the case. Medical decision making is of high complexity. Will get records from [facility]. 60 minutes spent on this patient with more than 50% of time spent in direct patient care. Will follow
[2019-04-23] MEDS: FUROSEMIDE INJ/PF 40 MG/4 ML SDV IV SCH (10:11)
[2019-04-23] MEDS: METOPROLOL SUCCINATE 50 MG TAB.SR.24H PO SCH ×2 (10:11→21:31)
[2019-04-23] MEDS: LOSARTAN POTASSIUM 25 MG TABLET PO SCH ×2 (10:11→21:32)
[2019-04-23] MEDS ORDERED: MORPHINE SULFATE 10 MG/ML INJ IV ONE (11:00)
--- NOTE | 2019-04-23 14:00 | XCELERA REPORT ---
[address] [address] Transthoracic Echocardiogram Report Name: JI COBURN Age: 29 yrs Gender: Female : 1990 Patient Status: Inpatient Patient Location: [address] [place], [place] [address] Study Date: 04/22/2019 08:48 AM Height: 66 in Weight: 222 lb BSA: 2.1 m2 Procedure: A two-dimensional transthoracic echocardiogram with color flow and Doppler was performed. Study Quality: Good. Reason For Study: CHF / CARDIOMYOPATHY History: CHF / CARDIOMYOPATHY. Ordering Physician: LEEANN UMANA Performed By: Yamilet Wallace Interpretation Summary The left ventricle is moderately to severly dilated. There is normal left ventricular wall thickness. LV EF is 30% to 35%.% Left ventricular systolic function is moderate to severely reduced. There is moderate to severe global hypokinesis of the left ventricle. There is no thrombus. No ASD ,VSD , or PFO seen. The right ventricle is grossly normal size. The right atrium is normal. There is no evidence of mitral valve prolapse. There is no vegetation seen on the mitral valve. There is no mitral valve stenosis. There is a moderate to severe amount of mitral regurgitation There is no aortic valvular vegetation. There is no aortic valve stenosis There is no LVOT obstruction. No aortic regurgitation is present. There is no tricuspid stenosis. There is a mild amount of tricuspid regurgitation There is mild pulmonary hypertension by echo RVSP is 31 to 46 mm of Hg , with RA mean of 5 to 10. There is no pulmonic valvular stenosis. There is no pulmonic valvular regurgitation. The aortic root is normal size. The inferior vena cava appeared normal and decreased > 50% with respiration (RAP 5-10 mmHg) There is no pericardial effusion. MMode/2D Measurements & Calculations RVDd: 3.7 cm LVIDd: 7.2 cm FS: 18.9 % Ao root diam: 2.6 cm IVSd: 0.89 cm LVIDs: 5.9 cm EDV(Teich): LVPWd: 0.95 cm 275.0 ml Ao root area: ESV(Teich): 5.2 cm2 170.7 ml LA dimension: EF(Teich): 37.9 % 4.4 cm LVLd ap4: 8.7 cm SV(MOD-sp4): EDV(MOD-sp4): 109.0 ml 300.0 ml LVLs ap4: 8.1 cm ESV(MOD-sp4): 191.0 ml EF(MOD-sp4): 36.3 % Doppler Measurements & Calculations MV E max christopher: MV P1/2t max christopher: Ao V2 max: LV V1 max P.8 cm/sec 144.4 cm/sec 141.8 cm/sec 1.7 mmHg MV A max christopher: MV P1/2t: 56.2 msec Ao max P.0 mmHgLV V1 max: 96.9 cm/sec MVA(P1/2t): 3.9 cm2 65.4 cm/sec MV E/A: 1.4 MV dec slope: 752.8 cm/sec2 MV dec time: 0.18 sec PA V2 max: TR max christopher: MV P1/2t-pr_phl: 102.4 cm/sec 253.7 cm/sec 56.2 msec PA max P.2 mmHg TR max P.7 mmHg Left Ventricle The left ventricle is moderately to severly dilated. There is normal left ventricular wall thickness. LV EF is 30% to 35%.%. Left ventricular systolic function is moderate to severely reduced. There is moderate to severe global hypokinesis of the left ventricle. There is no thrombus. No ASD ,VSD , or PFO seen. Right Ventricle The right ventricle is grossly normal size. Atria The right atrium is normal. The left atrium is moderately dilated. Mitral Valve There is no evidence of mitral valve prolapse. There is no vegetation seen on the mitral valve. There is no mitral valve stenosis. There is a moderate to severe amount of mitral regurgitation. Aortic Valve There is no aortic valvular vegetation. There is no aortic valve stenosis. There is no LVOT obstruction. No aortic regurgitation is present. Tricuspid Valve There is no tricuspid stenosis. There is a mild amount of tricuspid regurgitation. There is mild pulmonary hypertension by echo. RVSP is 31 to 46 mm of Hg , with RA mean of 5 to 10. Pulmonic Valve There is no pulmonic valvular stenosis. There is no pulmonic valvular regurgitation. Great Vessels The aortic root is normal size. The inferior vena cava appeared normal and decreased > 50% with respiration (RAP 5-10 mmHg). Effusions There is no pericardial effusion. : LEEANN UMANA > Leeann Umana
--- NOTE | 2019-04-23 14:01 | PDOC PROGRESS REPORT ---
Subjective Progress Note for:: 04/23/19 Subjective:: JI COBURN is a 29 year old female with a known history of congestive heart failure. From description patient gave it sounds like it is left-sided systolic failure. Patient had been on medications previously for this but was told at some point in time "not to take anymore medications because it was completely reversed". Patient had a partial colectomy with ostomy placed on March 08 secondary to a ruptured diverticulum. Patient suspects that this is what caused all of her problems as she states she has not had heart problems although she has had echoes in previous medications for congestive heart failure. Patient also has gross cardiomegaly on chest x-ray. Patient has had no treatment prior to arrival all activities been aggravating factor. 04/22/2019. No acute events overnight, shortness of breath has improved, patient had her echo done today. 04/23/2019. No acute events overnight. Complaining of PND. Complaining of pain at the ostomy site. Denies any fever, chills, nausea, vomiting, diarrhea, constipation or any urinary symptoms. Reason For Visit: ACUTE ON CHRONIC CONGESTIVE HEART FAILURE UNKNOWN Physical Exam Vital Signs: Temp Pulse Resp BP Pulse Ox 98.5 F 89 16 104/65 97 04/23/19 11:12 04/23/19 11:12 04/23/19 11:12 04/23/19 11:12 04/23/19 11:12 Intake & Output 04/22/19 04/23/19 04/24/19 06:59 06:59 06:59 Intake Total 1440 560 Output Total 2100 Balance -660 560 Weight 101.4 kg 101.5 kg General appearance: PRESENT: no acute distress, obese, well-developed, well- nourished Head exam: PRESENT: atraumatic, normocephalic Neck exam: ABSENT: carotid bruit, JVD, lymphadenopathy, thyromegaly Respiratory exam: PRESENT: clear to auscultation [place]. ABSENT: rales, rhonchi, wheezes Cardiovascular exam: PRESENT: RRR. ABSENT: diastolic murmur, rubs, systolic murmur Pulses: PRESENT: normal dorsalis pedis pul GI/Abdominal exam: PRESENT: normal bowel sounds, soft, other - ostomy in place, intact. ABSENT: distended, guarding, mass, organolmegaly, rebound, tenderness Neurological exam: PRESENT: alert, awake, oriented to person, oriented to place, oriented to time, oriented to situation, CN II-XII grossly intact. ABSENT: motor sensory deficit Results Laboratory Results: 04/23/19 03:55 04/23/19 03:55 04/23/19 04/23/19 03:55 03:55 WBC 10.4 RBC 4.84 Hgb 9.9 L Hct 32.2 L MCV 67 L MCH 20.5 L MCHC 30.8 L RDW 21.3 H Plt Count 365 Seg Neutrophils % 62.0 Lymphocytes % 26.6 Monocytes % 8.9 Eosinophils % 1.8 Basophils % 0.7 Absolute Neutrophils 6.5 Absolute Lymphocytes 2.8 Absolute Monocytes 0.9 Absolute Eosinophils 0.2 Absolute Basophils 0.1 Sodium 138.9 Potassium 3.5 L Chloride 101 Carbon Dioxide 29 Anion Gap 9 BUN 21 H Creatinine 0.88 Est GFR ( Amer) > 60 Est GFR (Non-Af Amer) > 60 Glucose 91 Calcium 9.1 Magnesium 1.9 Total Bilirubin 0.2 AST 17 ALT 22 Alkaline Phosphatase 83 Total Protein 6.6 Albumin 3.5 04/19/19 04/19/19 04/19/19 06:40 06:40 06:40 Creatine Kinase 87 CK-MB (CK-2) 0.46 Troponin I 0.028 NT-Pro-B Natriuret Pep 1690 H 04/19/19 04/20/19 04/20/19 18:45 00:31 04:52 Creatine Kinase 77 73 CK-MB (CK-2) Troponin I NT-Pro-B Natriuret Pep 1490 H Impressions: Chest X-Ray 04/19/19 06:31 IMPRESSION: CARDIAC ENLARGEMENT. VASCULAR CONGESTION. Assessment and Plan - Diagnosis (1) Acute exacerbation of CHF (congestive heart failure) Qualifiers: Heart failure type: systolic Qualified Code(s): I50.23 - Acute on chronic systolic (congestive) heart failure Is this a current diagnosis for this admission?: Yes Plan: Acute on chronic systolic heart failure likely due to medication noncompliance. SBP 23801, T-max 98.1, pulse 80s, RR 1618, SPO2 97 RA. I/O 1440/2100 balance -660. Weight 101.4 down from 104.1 on admission. Continue volume restriction, strict in and out, cardiac diet, daily weights. Continue losartan 25 mg p.o. twice daily, Toprol-XL 50 mg p.o. twice daily, Lasix 40 mg PO daily. Cardiology following. Recommendations noted. Pending echo result (2) Hypertension Is this a current diagnosis for this admission?: Yes Plan: Optimized. History of uncontrolled hypertension. Continue losartan 25 mg p.o. twice daily, Toprol-XL 50 mg p.o. twice daily, Lasix 40 PO daily. Monitor vitals, adjust meds as needed. Outpatient PCP follow-up. (3) Cardiomyopathy Is this a current diagnosis for this admission?: Yes Plan: Likely due to uncontrolled hypertension. As per #1. (4) COPD (chronic obstructive pulmonary disease) Is this a current diagnosis for this admission?: Yes Plan: Not on home O2. Not exacerbated on this admission. Continue supplemental oxygen, duo nebs, PRN BiPAP, LABA's/LAMA's. Outpatient PCP follow-up. (5) Tobacco abuse Is this a current diagnosis for this admission?: Yes Plan: Counseled on quitting. NicoDerm patch will be made available. She has stated that she is not smoking anymore. (6) History of diverticulitis Is this a current diagnosis for this admission?: No Plan: History of recent diverticulitis status post colostomy and colostomy bag placement. Continue colostomy care. Outpatient GI follow-up. (7) Hyperlipidemia Is this a current diagnosis for this admission?: Yes Plan: Continue statins. Diet and lifestyle modification recommended. (8) Obesity Qualifiers: Obesity classification: adult class 2 (BMI 35 - 39.9) Is this a current diagnosis for this admission?: Yes Plan: Diet and lifestyle modification recommended. (9) Hypokalemia Is this a current diagnosis for this admission?: Yes Plan: No EKG changes. Continue telemetry. Potassium level tomorrow. Replace as needed. (10) SOLO (obstructive sleep apnea) Is this a current diagnosis for this admission?: Yes Plan: Refuses to use CPAP. Outpatient nocturnal polysomnography. Outpatient PCP follow-up.
[2019-04-23] MEDS: MORPHINE SULFATE 10 MG/ML INJ IV PRN (19:07)
[2019-04-23] MEDS: OXYCODONE-ACETAMINOPHEN 5-325 MG TABLET PO PRN (21:31)
[2019-04-23] MEDS: ZOLPIDEM TARTRATE 5 MG TABLET PO SCH (21:32)
[2019-04-24 04:47] LABS: ABSOLUTE BASOPHILS # (AUTO) 0.1 10^3/uL (0.0-0.2); ABSOLUTE EOSINOPHILS # (AUTO) 0.2 10^3/uL (0.0-0.6); ABSOLUTE LYMPHOCYTES (AUTO) 2.4 10^3/uL (0.5-4.7); ABSOLUTE MONOCYTES (AUTO) 0.7 10^3/uL (0.1-1.4); ABSOLUTE NEUT (AUTO) 5.7 10^3/uL (1.7-8.2); BASOPHILS % (AUTO) 0.7 % (0-2); EOSINOPHILS % (AUTO) 2.1 % (0-6); HEMOGLOBIN 9.4 g/dL (12.0-15.5); LYMPHOCYTES % (AUTO) 26.2 % (13-45); MEAN CORPUSCULAR HEMOGLOBIN 20.4 pg (27.0-33.4); MEAN CORPUSCULAR HGB CONC 30.5 g/dL (32.0-36.0); MEAN CORPUSCULAR VOLUME 67 fl (80-97); MONOCYTES % (AUTO) 8.2 % (3-13); PLATELET COUNT 344 10^3/uL (150-450); RED BLOOD COUNT 4.63 10^6/uL (3.72-5.28); RED CELL DISTRIBUTION WIDTH 20.7 % (11.5-14.0); SEGMENTED NEUTROPHILS % (AUTO) 62.8 % (42-78); TOTAL CELLS COUNTED % (AUTO) 100 %; WHITE BLOOD COUNT 9.1 10^3/uL (4.0-10.5)
[2019-04-24 05:04] LABS: ANION GAP 8 (5-19); BLOOD UREA NITROGEN 23 mg/dL (7-20); CARBON DIOXIDE 29 mmol/L (22-30); CHLORIDE 100 mmol/L (98-107); GLUCOSE 86 mg/dL (75-110); POTASSIUM 3.4 mmol/L (3.6-5.0); SODIUM 136.9 mmol/L (137-145)
[2019-04-24] MEDS ORDERED: POTASSIUM CHLORIDE 10 MEQ CAPSULE.ER PO ONE (08:07)
[2019-04-24] MEDS ORDERED: ATORVASTATIN CALCIUM 40 MG TABLET PO ONE (08:14)
[2019-04-24] MEDS: METOPROLOL SUCCINATE 50 MG TAB.SR.24H PO SCH (09:06)
[2019-04-24] MEDS: LOSARTAN POTASSIUM 25 MG TABLET PO SCH (09:06)
[2019-04-24] MEDS: MORPHINE SULFATE 10 MG/ML INJ IV PRN (09:08)
[2019-04-24] MEDS ORDERED: FUROSEMIDE 40 MG TABLET PO SCH (10:00)
[2019-04-24 11:28] LABS: ANION GAP 8 (5-19); BLOOD UREA NITROGEN 18 mg/dL (7-20); CALCIUM 9.3 mg/dL (8.4-10.2); CARBON DIOXIDE 30 mmol/L (22-30); CHLORIDE 100 mmol/L (98-107); GLUCOSE 107 mg/dL (75-110); POTASSIUM 3.5 mmol/L (3.6-5.0); SODIUM 138.3 mmol/L (137-145)
[2019-04-24 12:48] VITALS: BP 152/98
--- NOTE | 2019-04-24 14:40 | PDOC DISCHARGE SUMMARY ---
General - Admit/Disc Date/PCP Admission Date/Primary Care Provider: 04/19/19 13:19 Discharge Date: 04/24/19 - Discharge Diagnosis (1) Acute exacerbation of CHF (congestive heart failure) Is this a current diagnosis for this admission?: Yes (2) Hypertension Is this a current diagnosis for this admission?: Yes (3) Cardiomyopathy Is this a current diagnosis for this admission?: Yes (4) COPD (chronic obstructive pulmonary disease) Is this a current diagnosis for this admission?: Yes (5) Tobacco abuse Is this a current diagnosis for this admission?: Yes (6) History of diverticulitis Is this a current diagnosis for this admission?: No (7) Hyperlipidemia Is this a current diagnosis for this admission?: Yes (8) Obesity Is this a current diagnosis for this admission?: Yes (9) Hypokalemia Is this a current diagnosis for this admission?: Yes (10) SOLO (obstructive sleep apnea) Is this a current diagnosis for this admission?: Yes - Additional Information Resuscitation Status: Full Code Discharge Diet: Cardiac Discharge Activity: Activity As Tolerated, Balance Activity w/Rest, Weigh Daily Prescriptions: Rosuvastatin Calcium [Crestor] 20 mg PO DAILY 30 Days #30 tablet RX: Furosemide [Lasix 40 mg Tablet] 20 mg PO BID 30 Days #60 tablet RX: Losartan Potassium [Cozaar 25 mg Tablet] 25 mg PO Q12 30 Days #60 tablet RX: Metoprolol Succinate [Toprol Xl 50 mg Tab.sr] 50 mg PO Q12 30 Days #60 tab.sr.24h RX: Potassium Chloride [Klor-Con M20] 20 meq PO DAILY 15 Days #15 tab.er.prt RX: Tramadol HCl [Ultram 50 mg Tablet] 50 mg PO Q8HP PRN 7 Days #21 tab PRN Reason: Home Medications: RX: Furosemide [Lasix 40 mg Tablet] 20 mg PO BID 30 Days #60 tablet 04/24/19 RX: Losartan Potassium [Cozaar 25 mg Tablet] 25 mg PO Q12 30 Days #60 tablet 04/24/19 RX: Metoprolol Succinate [Toprol Xl 50 mg Tab.sr] 50 mg PO Q12 30 Days #60 tab.sr.24h 04/24/19 RX: Potassium Chloride [Klor-Con M20] 20 meq PO DAILY 15 Days #15 tab.er.prt 04/24/19 RX: Tramadol HCl [Ultram 50 mg Tablet] 50 mg PO Q8HP PRN 7 Days #21 tab 04/24/19 Rosuvastatin Calcium [Crestor] 20 mg PO DAILY 30 Days #30 tablet 04/24/19 History of Present Illness History of Present Illness: JI COBURN is a 29 year old female Hospital Course Hospital Course: (1) Acute exacerbation of CHF (congestive heart failure) Acute on chronic systolic heart failure likely due to medication noncompliance. 04/22/2019. 2D echo LVEF 30%. Was a started on volume restriction, strict in and out, cardiac diet, daily weights. Started on losartan 25 mg p.o. twice daily, Toprol-XL 50 mg p.o. twice daily, Lasix 40 mg PO daily. Cardiology consulted. Recommendations noted. Patient was scheduled to see Dr. Du as outpatient. (2) Hypertension Optimized. History of uncontrolled hypertension. Continued losartan 25 mg p.o. twice daily, Toprol-XL 50 mg p.o. twice daily, Lasix 40 PO daily. Monitored vitals, adjust meds as needed. Outpatient PCP follow-up. (3) Cardiomyopathy Likely due to uncontrolled hypertension. As per #1. (4) COPD (chronic obstructive pulmonary disease) Not on home O2. Not exacerbated on this admission. Continued on supplemental oxygen, duo nebs, PRN BiPAP, LABA's/LAMA's. Outpatient PCP follow-up. (5) Tobacco abuse Counseled on quitting. NicoDerm patch will be made available. She has stated that she is not smoking anymore. (6) History of diverticulitis History of recent diverticulitis status post colostomy and colostomy bag placement. Continue colostomy care. Outpatient GI follow-up. (7) Hyperlipidemia Continued on statins. Diet and lifestyle modification recommended. Discharged on statins. (8) Obesity Diet and lifestyle modification recommended. (9) Hypokalemia Replaced. Repeat potassium 3.5. Discharge on daily potassium for another 2 weeks. Follow-up with PCP and cardiology. (10) SOLO (obstructive sleep apnea) Refuses to use CPAP inpatient. Patient will benefit from outpatient nocturnal polysomnography. Patient was counseled on the need of SOLO evaluation. Voiced understanding. Physical Exam Vital Signs: Temp Pulse Resp BP Pulse Ox 98.0 F 91 16 152/98 H 98 04/24/19 12:47 04/24/19 12:47 04/24/19 12:47 04/24/19 12:47 04/24/19 12:47 Intake & Output 04/23/19 04/24/19 04/25/19 06:59 06:59 06:59 Intake Total 560 1612 Output Total 0 Balance 560 1612 Weight 101.5 kg 101.7 kg General appearance: PRESENT: no acute distress, obese, well-developed, well- nourished Head exam: PRESENT: atraumatic, normocephalic Eye exam: PRESENT: conjunctiva pink, EOMI, PERRLA. ABSENT: scleral icterus Ear exam: PRESENT: normal external ear exam Mouth exam: PRESENT: moist, tongue midline Neck exam: ABSENT: carotid bruit, JVD, lymphadenopathy, thyromegaly Respiratory exam: PRESENT: clear to auscultation [place]. ABSENT: rales, rhonchi, wheezes Cardiovascular exam: PRESENT: RRR. ABSENT: diastolic murmur, rubs, systolic murmur Pulses: PRESENT: normal dorsalis pedis pul Vascular exam: PRESENT: normal capillary refill GI/Abdominal exam: PRESENT: normal bowel sounds, soft, other - Ostomy in place. No sign of infection. Normal output.. ABSENT: distended, guarding, mass, organolmegaly, rebound, tenderness Rectal exam: PRESENT: deferred Extremities exam: PRESENT: full ROM. ABSENT: calf tenderness, clubbing, pedal edema Neurological exam: PRESENT: alert, awake, oriented to person, oriented to place, oriented to time, oriented to situation, CN II-XII grossly intact. ABSENT: motor sensory deficit Psychiatric exam: PRESENT: appropriate affect, normal mood. ABSENT: homicidal ideation, suicidal ideation Skin exam: PRESENT: dry, intact, warm. ABSENT: cyanosis, rash Results Laboratory Results: 04/24/19 04:26 04/24/19 10:50 04/24/19 04/24/19 04/24/19 04:26 04:26 10:50 WBC 9.1 RBC 4.63 Hgb 9.4 L Hct 31.0 L MCV 67 L MCH 20.4 L MCHC 30.5 L RDW 20.7 H Plt Count 344 Seg Neutrophils % 62.8 Lymphocytes % 26.2 Monocytes % 8.2 Eosinophils % 2.1 Basophils % 0.7 Absolute Neutrophils 5.7 Absolute Lymphocytes 2.4 Absolute Monocytes 0.7 Absolute Eosinophils 0.2 Absolute Basophils 0.1 Sodium 136.9 L 138.3 Potassium 3.4 L 3.5 L Chloride 100 100 Carbon Dioxide 29 30 Anion Gap 8 8 BUN 23 H 18 Creatinine 0.93 0.88 Est GFR ( Amer) > 60 > 60 Est GFR (Non-Af Amer) > 60 > 60 Glucose 86 107 Calcium 9.0 9.3 04/24/19 10:50 WBC RBC Hgb Hct MCV MCH MCHC RDW Plt Count Seg Neutrophils % Lymphocytes % Monocytes % Eosinophils % Basophils % Absolute Neutrophils Absolute Lymphocytes Absolute Monocytes Absolute Eosinophils Absolute Basophils Sodium Potassium Cancelled Chloride Carbon Dioxide Anion Gap BUN Creatinine Est GFR ( Amer) Est GFR (Non-Af Amer) Glucose Calcium 04/19/19 04/19/19 04/19/19 06:40 06:40 06:40 Creatine Kinase 87 CK-MB (CK-2) 0.46 Troponin I 0.028 NT-Pro-B Natriuret Pep 1690 H 04/19/19 04/20/19 04/20/19 18:45 00:31 04:52 Creatine Kinase 77 73 CK-MB (CK-2) Troponin I NT-Pro-B Natriuret Pep 1490 H Impressions: Chest X-Ray 04/19/19 06:31 IMPRESSION: CARDIAC ENLARGEMENT. VASCULAR CONGESTION. Qualifiers - * PATIENT BEING DISCHARGED WITH ANY OF THE FOLLOWING DIAGNOSIS: No Acute Heart Failure - Is this a Heart Failure Patient?: Yes Documentation of LVEF assessment?: Yes LVEF < 40%?: No- if no continue to question #3 a) Discharged on ACEI?: N/A Discharged on ARB Reason(s) not discharge on ACEI: Allergy b) Discharges on ARB?: Yes Reason(s) not discharged on ARNI: ACEI use within the prior 36 hours e) For LVEF <35%, discharged on Aldosterone antagonist?: Yes
== END 2019-04-24 13:40 | disposition home or self-care (01) | DRG 292 ==
LOC: ER 05:12 → EH 13:19 → 3N 14:31
PROVIDERS: ADMIT Internal Medicine; ATTEND Internal Medicine
DX: I11.0 Hypertensive heart disease with heart failure (principal); J44.1 Chronic obstructive pulmonary disease with (acute) exacerbation; I50.23 Acute on chronic systolic (congestive) heart failure; I42.9 Cardiomyopathy, unspecified; Z91.19 Patient's noncompliance with other medical treatment and regimen; E78.5 Hyperlipidemia, unspecified; K57.90 Diverticulosis of intestine, part unspecified, without perforation or abscess without bleeding; Z93.3 Colostomy status; Z88.8 Allergy status to other drugs, medicaments and biological substances; E87.6 Hypokalemia; E66.9 Obesity, unspecified; F17.211 Nicotine dependence, cigarettes, in remission; G47.33 Obstructive sleep apnea (adult) (pediatric)
CPT/HCPCS: 36415; 71046; 80048; 80053; 82550; 82553; 83690; 83735; 83880; 84484; 85025; 93005; 93010; 93306; 94640; 96374; 99291; J1940; J2270; J3490; J7512; J7620

== ENCOUNTER → 2019-07-01 | Outpatient (CLI) | payer OTHER ==
[2019-07-01 10:35] LABS: ABSOLUTE EOSINOPHILS # (AUTO) 0.1 10^3/uL (0.0-0.6); ABSOLUTE LYMPHOCYTES (AUTO) 2.1 10^3/uL (0.5-4.7); ABSOLUTE MONOCYTES (AUTO) 0.7 10^3/uL (0.1-1.4); ABSOLUTE NEUT (AUTO) 8.2 10^3/uL (1.7-8.2); BASOPHILS % (AUTO) 0.4 % (0-2); EOSINOPHILS % (AUTO) 0.5 % (0-6); HEMATOCRIT 38.5 % (36.0-47.0); LYMPHOCYTES % (AUTO) 18.9 % (13-45); MEAN CORPUSCULAR HEMOGLOBIN 21.7 pg (27.0-33.4); MEAN CORPUSCULAR HGB CONC 31.3 g/dL (32.0-36.0); MEAN CORPUSCULAR VOLUME 69 fl (80-97); MONOCYTES % (AUTO) 6.1 % (3-13); PLATELET COUNT 316 10^3/uL (150-450); RED BLOOD COUNT 5.56 10^6/uL (3.72-5.28); RED CELL DISTRIBUTION WIDTH 21.3 % (11.5-14.0); SEGMENTED NEUTROPHILS % (AUTO) 74.1 % (42-78); TOTAL CELLS COUNTED % (AUTO) 100 %; WHITE BLOOD COUNT 11.1 10^3/uL (4.0-10.5)
[2019-07-01 10:49] LABS: ALBUMIN 4.2 g/dL (3.5-5.0); ALKALINE PHOSPHATASE 84 U/L (38-126); ANION GAP 8 (5-19); ASPARTATE AMINO TRANSFERASE 21 U/L (14-36); BILIRUBIN,DIRECT 0.2 mg/dL (0.0-0.4); BILIRUBIN,TOTAL 0.5 mg/dL (0.2-1.3); BLOOD UREA NITROGEN 12 mg/dL (7-20); CALCIUM 9.6 mg/dL (8.4-10.2); CARBON DIOXIDE 26 mmol/L (22-30); CHLORIDE 105 mmol/L (98-107); CHOLESTEROL 144.98 mg/dL (0-200); GLUCOSE 82 mg/dL (75-110); POTASSIUM 4.5 mmol/L (3.6-5.0); TOTAL PROTEIN 7.4 g/dL (6.3-8.2); TRIGLYCERIDES 101 mg/dL (<150)
[2019-07-01 11:00] LABS: DIRECT LDL 79 mg/dL (<100)
== END ==
LOC: CCC 09:33
DX: Z00.00 Encounter for general adult medical examination without abnormal findings (principal)
CPT/HCPCS: 36415; 80053; 80061; 83036; 84443; 85025

== ENCOUNTER 2019-09-13 12:48 | Emergency (ER) | payer SELFPAY ==
--- NOTE | 2019-09-13 13:07 | ER Document Report ---
ED Skin Rash/Insect Bite/Abscs - General Chief Complaint: Skin Problem Stated Complaint: SKIN IRRATATION Time Seen by Provider: 09/13/19 13:02 [facility]: [facility] [NO [facility]AL MD] - Follow up as needed Mode of Arrival: Ambulatory Information source: Patient Notes: 29-year-old female presents to ED for complaint of irritation around her ostomy site. She states that she does not have the money to go to doctors to examine this and it is very irritated. She states she does have some supplies at this time because her mother is paying for them at this time. She has not had any teaching from an ostomy nurse. I will put in a discharge planning consult for someone to speak with her. TRAVEL OUTSIDE OF THE [place] IN LAST 30 DAYS: No - HPI Patient complains to provider of: Skin rash/lesion, Tender/swollen area Onset: Last week Onset/Duration: Gradual Quality of pain: Burning Severity: Moderate Pain Level: 3 Skin Character: Erythema, Tenderness Quality of rash: Painful, Burning Identify cause: Yes Exacerbated by: Other Relieved by: Denies Similar symptoms previously: Yes Recently seen / treated by doctor: No - Related Data Allergies/Adverse Reactions: aspirin [From Excedrin Migraine] Allergy (Verified 04/01/19 07:54) caffeine [From Excedrin Migraine] Allergy (Verified 04/01/19 07:54) ibuprofen [From Advil] Allergy (Verified 04/01/19 07:54) Past Medical History - General Information source: Patient - Social History Smoking Status: Current Every Day Smoker Cigarette use (# per day): Yes - Half a pack a day Smoking Education Provided: Yes - 4 min Frequency of alcohol use: Occasional Drug Abuse: None Lives with: Family Family History: Hypertension Patient has suicidal ideation: No Patient has homicidal ideation: No - Past Medical History Cardiac Medical History: Reports: Hx Congestive Heart Failure, Hx Hypercholesterolemia, Hx Hypertension Pulmonary Medical History: Reports: None EENT Medical History: Reports: None Neurological Medical History: Reports: None Endocrine Medical History: Reports: None Renal/ Medical History: Reports: None Malignancy Medical History: Reports: None GI Medical History: Reports: Hx Diverticulitis, Hx Colonoscopy Musculoskeletal Medical History: Reports None Skin Medical History: Reports Hx Cellulitis Psychiatric Medical History: Reports: None Traumatic Medical History: Reports: None Infectious Medical History: Reports: None Past Surgical History: Reports: Hx Colostomy - Colostomy with partial colectomy March 2019 for perforated diverticulitis, Other - Partial colectomy performed from likely perforated diverticulitis - Immunizations Immunizations up to date: Yes Hx Diphtheria, Pertussis, Tetanus Vaccination: Yes Review of Systems - Review of Systems Constitutional: No symptoms reported EENT: No symptoms reported Cardiovascular: No symptoms reported Respiratory: No symptoms reported Gastrointestinal: No symptoms reported Genitourinary: No symptoms reported Female Genitourinary: No symptoms reported Musculoskeletal: No symptoms reported Skin: Other - Irritation around the colostomy site Hematologic/Lymphatic: No symptoms reported Neurological/Psychological: No symptoms reported -: Yes All other systems reviewed and negative Physical Exam - Vital signs Vitals: Temp Pulse Resp BP Pulse Ox 98.5 F 92 16 145/96 H 98 09/13/19 12:53 09/13/19 12:53 09/13/19 12:53 09/13/19 12:53 09/13/19 12:53 Interpretation: Normal - General General appearance: Appears well, Alert - HEENT Head: Normocephalic, Atraumatic Eyes: Normal Pupils: PERRL - Respiratory Respiratory status: No respiratory distress Chest status: Nontender Breath sounds: Normal Chest palpation: Normal - Cardiovascular Rhythm: Regular Heart sounds: Normal auscultation Murmur: No - Abdominal Inspection: Normal Distension: No distension Bowel sounds: Normal Tenderness: Tender - Irritation to the skin around the ostomy site Organomegaly: No organomegaly - Back Back: Normal, Nontender - Extremities General upper extremity: Normal inspection, Nontender, Normal color, Normal ROM, Normal temperature General lower extremity: Normal inspection, Nontender, Normal color, Normal ROM, Normal temperature, Normal weight bearing. No: Pipo's sign - Neurological Neuro grossly intact: Yes Cognition: Normal Orientation: AAOx4 [place] Coma Scale Eye Opening: Spontaneous [place] Coma Scale Verbal: Oriented [place] Coma Scale Motor: Obeys Commands [place] Coma Scale Total: 15 Speech: Normal Motor strength normal: LUE, RUE, LLE, RLE Sensory: Normal - Psychological Associated symptoms: Normal affect, Normal mood - Skin Skin Temperature: Warm Skin Moisture: Dry Skin Color: Normal Location of irregularity: Abdomen - Irritation to the skin around the ostomy site Irregularity with: Tenderness Course - Re-evaluation Re-evalutation: 09/13/19 21:40 Discharge planning did come to the room talked to the patient about setting up outpatient services. Patient was discharged home as earlier discussed with patient. - Vital Signs Vital signs: Temp Pulse Resp BP Pulse Ox 98.4 F 88 18 140/87 H 98 09/13/19 14:09 09/13/19 14:09 09/13/19 14:09 09/13/19 14:09 09/13/19 14:09 Discharge - Discharge Clinical Impression: irritation around ostomy site Condition: Stable Disposition: HOME, SELF-CARE Additional Instructions: You were seen today for irritation around the ostomy site. I have made a discharge referral for someone to come out and speak with you and help you with this care. Hopefully the buyer planner will come and talk to you before discharge if not I will talk to you at home to help you with your supplies and care for your ostomy until you can get the reversal. Pain the site well with soap and water rinse well and then pat dry before using the stoma adhesive. At this time to start trying the stoma adhesive paste around the site is cut the opening for your back a little smaller like we discussed. Hopefully discharge planning will have someone come out and help you until you can heal this area up. FOLLOW-UP CARE: If you have been referred to a physician for follow-up care, call the physici ans office for an appointment as you were instructed or within the next two days. If you experience worsening or a significant change in your symptoms, notify the physician immediately or return to the Emergency Department at any time for re-evaluation. Forms: Elevated Blood Pressure, Smoking Cessation Education Referrals: [facility] [NO LOCAL MD] - Follow up as needed
[2019-09-13] MEDS ORDERED: ACETAMINOPHEN 325 MG TABLET PO ONE (13:45)
[2019-09-13 14:11] VITALS: BP 140/87
== END 2019-09-13 14:09 | disposition home or self-care (01) ==
LOC: ER 12:48
DX: K94.03 Colostomy malfunction (principal); R21 Rash and other nonspecific skin eruption; F17.210 Nicotine dependence, cigarettes, uncomplicated; I50.9 Heart failure, unspecified; I11.0 Hypertensive heart disease with heart failure
CPT/HCPCS: 99283

== ENCOUNTER 2019-12-04 14:10 | Inpatient (IN) | payer OTHER ==
[2019-12-04] MEDS ORDERED: NORMAL SALINE 1000 ML 1,000 ML IV ONE (14:33)
[2019-12-04] MEDS ORDERED: METOCLOPRAMIDE HCL INJ/PF 10 MG/2 ML SDV IV ONE (14:33)
--- NOTE | 2019-12-04 14:34 | ER Document Report ---
ED Medical Screen (RME) - General Stated Complaint: ABDOMINAL PAIN/NAUSEA/VOMITING Time Seen by Provider: 12/04/19 14:31 TRAVEL OUTSIDE OF THE [place] IN LAST 30 DAYS: No - HPI Notes: 12/04/19 14:33 Patient is a 29-year-old female with a history of surgery for diverticulosis with ostomy bag in place who presents complaining of bilateral abdominal pain with nausea and vomiting and low back pain that began today. No fever, chest p ain, shortness of breath, dysuria. I have treated and performed a rapid initial assessment of this patient. A comprehensive ED assessment and evaluation of the patient, analysis of test results and completion of medical decision making process will be conducted by additional ED providers. PHYSICAL EXAMINATION: GENERAL: Well-appearing, well-nourished and in no acute distress. - Related Data Allergies/Adverse Reactions: aspirin [From Excedrin Migraine] Allergy (Verified 12/04/19 14:31) caffeine [From Excedrin Migraine] Allergy (Verified 12/04/19 14:31) ibuprofen [From Advil] Allergy (Verified 12/04/19 14:31) Past Medical History - Past Medical History Cardiac Medical History: Reports: Hx Congestive Heart Failure, Hx Hypercholesterolemia, Hx Hypertension Renal/ Medical History: Denies: Hx Peritoneal Dialysis GI Medical History: Reports: Hx Diverticulitis, Hx Colonoscopy Skin Medical History: Reports Hx Cellulitis Past Surgical History: Reports: Hx Abdominal Surgery, Hx Colostomy - Colostomy with partial colectomy March 2019 for perforated diverticulitis, Other - Partial colectomy performed from likely perforated diverticulitis - Immunizations Immunizations up to date: Yes Hx Diphtheria, Pertussis, Tetanus Vaccination: Yes Physical Exam - Vital signs Vitals: Temp Pulse Resp BP Pulse Ox 97.6 F 75 16 147/102 H 99 12/04/19 14:22 12/04/19 14:22 12/04/19 14:22 12/04/19 14:22 12/04/19 14:22 Course - Vital Signs Vital signs: Temp Pulse Resp BP Pulse Ox 97.6 F 75 16 147/102 H 99 12/04/19 14:22 12/04/19 14:22 12/04/19 14:22 12/04/19 14:22 12/04/19 14:22
[2019-12-04 15:15] LABS: ABSOLUTE MONOCYTES (AUTO) 0.6 10^3/uL (0.1-1.4); ABSOLUTE NEUT (AUTO) 14.1 10^3/uL (1.7-8.2); BASOPHILS % (AUTO) 0.2 % (0-2); EOSINOPHILS % (AUTO) 0.2 % (0-6); HEMATOCRIT 39.9 % (36.0-47.0); HEMOGLOBIN 12.9 g/dL (12.0-15.5); LYMPHOCYTES % (AUTO) 6.3 % (13-45); MEAN CORPUSCULAR HEMOGLOBIN 24.5 pg (27.0-33.4); MEAN CORPUSCULAR HGB CONC 32.4 g/dL (32.0-36.0); MEAN CORPUSCULAR VOLUME 76 fl (80-97); PLATELET COUNT 329 10^3/uL (150-450); RED BLOOD COUNT 5.27 10^6/uL (3.72-5.28); SEGMENTED NEUTROPHILS % (AUTO) 89.3 % (42-78); TOTAL CELLS COUNTED % (AUTO) 100 %; WHITE BLOOD COUNT 15.8 10^3/uL (4.0-10.5)
[2019-12-04 15:33] LABS: ALBUMIN 4.1 g/dL (3.5-5.0); ALKALINE PHOSPHATASE 75 U/L (38-126); ANION GAP 11 (5-19); ASPARTATE AMINO TRANSFERASE 18 U/L (14-36); BILIRUBIN,DIRECT 0.2 mg/dL (0.0-0.4); BILIRUBIN,TOTAL 0.7 mg/dL (0.2-1.3); BLOOD UREA NITROGEN 14 mg/dL (7-20); CARBON DIOXIDE 24 mmol/L (22-30); CHLORIDE 104 mmol/L (98-107); GLUCOSE 128 mg/dL (75-110); POTASSIUM 3.5 mmol/L (3.6-5.0); TOTAL PROTEIN 7.6 g/dL (6.3-8.2)
[2019-12-04 15:52] LABS: APPEARANCE,URINE CLEAR; BILIRUBIN,URINE NEGATIVE (NEGATIVE); COLOR,URINE YELLOW; GLUCOSE, URINE NEGATIVE (NEGATIVE); KETONES,URINE NEGATIVE (NEGATIVE); PROTEIN,URINE 30 mg/dL (NEGATIVE); URINE SPECIFIC GRAVITY 1.006; UROBILINOGEN,URINE NEGATIVE mg/dL (<2.0)
[2019-12-04] MEDS ORDERED: CIPROFLOXACIN 400 MG/D5W RTU 400 MG/200 ML RTUPB IV ONE (17:32)
[2019-12-04] MEDS ORDERED: METRONIDAZOLE 500 MG/NS RTU 500 MG/100 ML RTUPB IV ONE (17:32)
[2019-12-04] MEDS ORDERED: HYDROMORPHONE HCL INJ/PF 2 MG/ML AMPULE IV ONE (17:33)
--- NOTE | 2019-12-04 17:38 | ER Document Report ---
ED GI/ - General Chief Complaint: Abdominal Pain Stated Complaint: ABDOMINAL PAIN/NAUSEA/VOMITING Time Seen by Provider: 12/04/19 14:31 Mode of Arrival: Ambulatory Information source: Patient Notes: 29-year-old female presented to ED for complaint of lower abdominal pain. She denies any fever she states she has had nausea with vomiting x2. She also has low back pain that all began today. She does have a history of diverticulitis with a colostomy due to diverticulitis. She states she is supposed to have the colostomy reduced at some point when she gets reexamined by the surgeon. She states this is the first time she has had this much pain since she had the surgery and the pain is the same as her diverticulitis. She does have an elevated white count of 15.8 with segs of 89.3. Patient was seen in triage and blood work and urine was completed before I examined the patient. I did discuss this patient with Dr. Choi who stated the patient would need to be admitted due to history of diverticulitis with surgery and an elevated white count. Her colostomy was performed in March 2019 her last appointment with her surgeon was November [id number]. TRAVEL OUTSIDE OF THE [place] IN LAST 30 DAYS: No - HPI Patient complains to provider of: Abdominal pain, Vomiting Onset: This morning Timing/Duration: Sudden, Persistent Quality of pain: Cramping, Sharp Severity at maximum: Severe Severity in ED: Severe Pain Level: 5 Location: LLQ, RLQ Associated symptoms: Nausea, Vomiting Exacerbated by: Movement Relieved by: Denies Similar symptoms previously: Yes Recently seen / treated by doctor: No - Related Data Allergies/Adverse Reactions: aspirin [From Excedrin Migraine] Allergy (Verified 12/04/19 14:31) caffeine [From Excedrin Migraine] Allergy (Verified 12/04/19 14:31) ibuprofen [From Advil] Allergy (Verified 12/04/19 14:31) Past Medical History - General Information source: Patient - Social History Smoking Status: Never Smoker Frequency of alcohol use: None Drug Abuse: None Lives with: Family Family History: Hypertension Patient has suicidal ideation: No Patient has homicidal ideation: No - Past Medical History Cardiac Medical History: Reports: Hx Congestive Heart Failure, Hx Hypercholesterolemia, Hx Hypertension Pulmonary Medical History: Reports: None EENT Medical History: Reports: None Neurological Medical History: Reports: None Endocrine Medical History: Reports: None Renal/ Medical History: Reports: None Malignancy Medical History: Reports: None GI Medical History: Reports: Hx Diverticulitis - Colostomy, Hx Colonoscopy Musculoskeletal Medical History: Reports None Skin Medical History: Reports Hx Cellulitis Psychiatric Medical History: Reports: None Traumatic Medical History: Reports: None Infectious Medical History: Reports: None Past Surgical History: Reports: Hx Abdominal Surgery - ostomy, Hx Bowel Diversion, Hx Bowel Surgery, Hx Colostomy - Colostomy with partial colectomy March 2019 for perforated diverticulitis, Other - Partial colectomy performed from likely perforated diverticulitis - Immunizations Immunizations up to date: Yes Hx Diphtheria, Pertussis, Tetanus Vaccination: Yes Review of Systems - Review of Systems Constitutional: No symptoms reported. denies: Fever EENT: No symptoms reported Cardiovascular: No symptoms reported Respiratory: No symptoms reported Gastrointestinal: Abdominal pain, Nausea, Vomiting Genitourinary: No symptoms reported Female Genitourinary: No symptoms reported Musculoskeletal: No symptoms reported Skin: No symptoms reported Hematologic/Lymphatic: No symptoms reported Neurological/Psychological: No symptoms reported -: Yes All other systems reviewed and negative Physical Exam - Vital signs Vitals: Temp Pulse Resp BP Pulse Ox 97.6 F 75 16 147/102 H 99 12/04/19 14:22 12/04/19 14:22 12/04/19 14:22 12/04/19 14:22 12/04/19 14:22 Interpretation: Hypertensive - General General appearance: Appears well, Alert - HEENT Head: Normocephalic, Atraumatic Eyes: Normal Pupils: PERRL - Respiratory Respiratory status: No respiratory distress Chest status: Nontender Breath sounds: Normal Chest palpation: Normal - Cardiovascular Rhythm: Regular Heart sounds: Normal auscultation Murmur: No - Abdominal Inspection: Normal Distension: No distension Bowel sounds: Hyperactive Tenderness: Tender Notes: Right colostomy - Back Back: Normal, Nontender - Extremities General upper extremity: Normal inspection, Nontender, Normal color, Normal ROM, Normal temperature General lower extremity: Normal inspection, Nontender, Normal color, Normal ROM, Normal temperature, Normal weight bearing. No: Pipo's sign - Neurological Neuro grossly intact: Yes Cognition: Normal Orientation: AAOx4 Guillermo Coma Scale Eye Opening: Spontaneous Guillermo Coma Scale Verbal: Oriented [place] Coma Scale Motor: Obeys Commands Guillermo Coma Scale Total: 15 Speech: Normal Motor strength normal: LUE, RUE, LLE, RLE Sensory: Normal - Psychological Associated symptoms: Normal affect, Normal mood - Skin Skin Temperature: Warm Skin Moisture: Dry Skin Color: Normal Course - Re-evaluation Re-evalutation: 12/04/19 19:28 Discussed labs history and physical with Dr. Choi stated patient would need to be admitted. She recommended starting patient on Cipro and Flagyl given her some pain medicine and have her admitted to the hospitalist. I did speak with and he agreed to accept the admission to the medical floor. Patient has been admitted, she has been ordered a dose of Cipro Flagyl and Dilaudid 1 mg IV. Patient verbalized understanding and agreement with treatment plan - Vital Signs Vital signs: Temp Pulse Resp BP Pulse Ox 98.1 F 79 18 135/86 H 100 12/04/19 17:03 12/04/19 17:03 12/04/19 17:03 12/04/19 17:03 12/04/19 17:03 - Laboratory Result Diagrams: 12/04/19 14:55 12/04/19 14:55 Laboratory results interpreted by me: 12/04/19 12/04/19 12/04/19 14:55 14:55 14:55 WBC 15.8 H MCV 76 L MCH 24.5 L RDW 18.0 H Lymph % (Auto) 6.3 L Absolute Neuts (auto) 14.1 H Seg Neutrophils % 89.3 H Potassium 3.5 L Glucose 128 H Urine Protein 30 H Discharge - Discharge Clinical Impression: History of diverticulitis Abdominal pain Qualifiers: Abdominal location: lower abdomen, unspecified Qualified Code(s): R10.30 - Lower abdominal pain, unspecified Nausea & vomiting Qualifiers: Vomiting type: unspecified Vomiting Intractability: non-intractable Qualified Code(s): R11.2 - Nausea with vomiting, unspecified Elevated WBC count Qualifiers: Leukocytosis type: unspecified Qualified Code(s): D72.829 - Elevated white blood cell count, unspecified Disposition: ADMITTED INPATIENT Admitting Provider: Enriqueta (Hospitalist) Unit Admitted: Medical Floor
--- NOTE | 2019-12-04 18:14 | PDOC H&P ---
History of Present Illness History of Present Illness: JI COBURN is a 29 year old female past medical history of congestive heart failure, hypertension, COPD, tobacco abuse, hyperlipidemia, morbid obesity, perforated diverticulitis status post partial colectomy and ostomy placement 2018 presenting with acute onset abdominal pain. Abdominal pain started this morning, left lower quadrant, burning in nature, 10/10 in severity scale, radiating to the back, worse with eating and movement, relieved by morphine, associated with subjective fever, nausea and bilious vomiting x2. Denies any sick contact, any recent travel, denies any chest pain, shortness of breath or any urinary symptoms. Past Medical History Cardiac Medical History: Reports: Congestive Heart Failure, Hyperlipidema, Hypertension GI Medical History: Reports: Diverticulitis Past Surgical History Past Surgical History: Reports: Colostomy - Colostomy with partial colectomy March 2019 for perforated diverticulitis, Other - Partial colectomy performed from likely perforated diverticulitis Social History Smoking Status: Smoker,Current Status Unk Frequency of Alcohol Use: Occasional Hx Recreational Drug Use: No Drugs: None Hx Prescription Drug Abuse: No Family History Family History: Hypertension Parental Family History Reviewed: Yes Children Family History Reviewed: Yes Sibling(s) Family History Reviewed.: Yes Medication/Allergy Home Medications: Furosemide [Lasix 40 mg Tablet] 20 mg PO BID 30 Days #60 tablet 04/24/19 Losartan Potassium [Cozaar 25 mg Tablet] 25 mg PO Q12 30 Days #60 tablet 04/24/19 Metoprolol Succinate [Toprol Xl 50 mg Tab.sr] 50 mg PO Q12 30 Days #60 tab.sr.24h 04/24/19 Potassium Chloride [Klor-Con M20] 20 meq PO DAILY 15 Days #15 tab.er.prt 04/24/19 Rosuvastatin Calcium [Crestor] 20 mg PO DAILY 30 Days #30 tablet 04/24/19 Tramadol HCl [Ultram 50 mg Tablet] 50 mg PO Q8HP PRN 7 Days #21 tab 04/24/19 Allergies/Adverse Reactions: aspirin [From Excedrin Migraine] Allergy (Verified 12/04/19 14:31) caffeine [From Excedrin Migraine] Allergy (Verified 12/04/19 14:31) ibuprofen [From Advil] Allergy (Verified 12/04/19 14:31) Review of Systems Review of Systems: as per hpi Physical Exam Vital Signs: Temp Pulse Resp BP Pulse Ox 98.1 F 79 18 135/86 H 100 12/04/19 17:03 12/04/19 17:03 12/04/19 17:03 12/04/19 17:03 12/04/19 17:03 Intake & Output 12/03/19 12/04/19 12/05/19 06:59 06:59 06:59 Intake Total 1000 Balance 1000 Weight 89.7 kg General appearance: PRESENT: no acute distress, obese, well-developed, well-no urished Head exam: PRESENT: atraumatic, normocephalic Respiratory exam: PRESENT: clear to auscultation [place]. ABSENT: rales, rhonchi, wheezes Cardiovascular exam: PRESENT: RRR. ABSENT: diastolic murmur, rubs, systolic murmur GI/Abdominal exam: PRESENT: normal bowel sounds, soft, tenderness - LLQ, other - ostomy in place, patent. ABSENT: distended, guarding, mass, organolmegaly, rebound Neurological exam: PRESENT: alert, awake, oriented to person, oriented to place, oriented to time, oriented to situation, CN II-XII grossly intact. ABSENT: motor sensory deficit Results Laboratory Results: 12/04/19 14:55 12/04/19 14:55 12/04/19 12/04/19 12/04/19 14:55 14:55 14:55 WBC 15.8 H RBC 5.27 Hgb 12.9 Hct 39.9 MCV 76 L MCH 24.5 L MCHC 32.4 RDW 18.0 H Plt Count 329 Seg Neutrophils % 89.3 H Sodium 139.2 Potassium 3.5 L Chloride 104 Carbon Dioxide 24 Anion Gap 11 BUN 14 Creatinine 1.01 Est GFR ( Amer) > 60 Glucose 128 H Calcium 9.0 Total Bilirubin 0.7 AST 18 Alkaline Phosphatase 75 Total Protein 7.6 Albumin 4.1 Lipase 63.1 Serum HCG, Qual Urine Color YELLOW Urine Appearance CLEAR Urine pH 5.0 Ur Specific [place] 1.006 Urine Protein 30 H Urine Glucose (UA) NEGATIVE Urine Ketones NEGATIVE Urine Blood NEGATIVE Urine RBC (Auto) 1 12/04/19 14:55 WBC RBC Hgb Hct MCV MCH MCHC RDW Plt Count Seg Neutrophils % Sodium Potassium Chloride Carbon Dioxide Anion Gap BUN Creatinine Est GFR ( Amer) Glucose Calcium Total Bilirubin AST Alkaline Phosphatase Total Protein Albumin Lipase Serum HCG, Qual NEGATIVE Urine Color Urine Appearance Urine pH Ur Specific [place] Urine Protein Urine Glucose (UA) Urine Ketones Urine Blood Urine RBC (Auto) Assessment and Plan - Diagnosis (1) Abdominal pain Qualifiers: Abdominal location: lower abdomen, unspecified Qualified Code(s): R10.30 - Lower abdominal pain, unspecified Is this a current diagnosis for this admission?: Yes Plan: Likely colitis or diverticulitis. Left lower quadrant tenderness with neutrophil leukocytosis. Admit to floor, empiric IV antibiotics, will obtain CT abdomen pelvis without contrast. (2) History of diverticulitis Is this a current diagnosis for this admission?: Yes Plan: History of perforated diverticulitis status post partial colectomy and colostomy placed. Ostomy patent. Continue ostomy care. (3) Nausea & vomiting Qualifiers: Vomiting type: unspecified Vomiting Intractability: non-intractable Qualified Code(s): R11.2 - Nausea with vomiting, unspecified Is this a current diagnosis for this admission?: Yes Plan: Mostly due to #1. Supportive measures. Monitor volume status and electrolyte replace as needed. (4) Hyperlipidemia Is this a current diagnosis for this admission?: Yes Plan: Start home meds. (5) Hypertension Is this a current diagnosis for this admission?: Yes Plan: Potassium. Euvolemic. Restart home meds. Adjust meds as needed. Outpatient PCP follow-up. (6) SOLO (obstructive sleep apnea) Is this a current diagnosis for this admission?: Yes Plan: Nocturnal CPAP. (7) Obesity Qualifiers: Body mass index: BMI 31.0-31.9 Is this a current diagnosis for this admission?: Yes Plan: Diet and lifestyle modification recommended. (8) Tobacco abuse Is this a current diagnosis for this admission?: Yes Plan: Consult on quitting. NicoDerm patch will be provided.
[2019-12-04] MEDS ORDERED: IPRATROPIUM/ALBUTEROL 0.5-2.5 MG/3 ML AMPUL NEB PRN (18:20)
[2019-12-04] MEDS ORDERED: ONDANSETRON HCL INJ/PF 4 MG/2 ML SDV IV PRN (18:20)
[2019-12-04] MEDS ORDERED: TEMAZEPAM 15 MG CAPSULE PO PRN (18:20)
[2019-12-04] MEDS ORDERED: PROMETHAZINE HCL INJ 25 MG/1 ML VIAL IV PRN (18:20)
[2019-12-04] MEDS ORDERED: NORMAL SALINE 1000 ML 1,000 ML IV PRN (18:20)
[2019-12-04] MEDS ORDERED: METOPROLOL TARTRATE PF/INJ 5 MG/5 ML SDV IV PRN (18:25)
[2019-12-04] MEDS ORDERED: HYDRALAZINE HCL INJ/PF 20 MG/1 ML SDV IV PRN (18:25)
[2019-12-04] MEDS: OXYCODONE-ACETAMINOPHEN 5-325 MG TABLET PO PRN (20:53)
[2019-12-04] MEDS: HEPARIN SOD (PORCINE) 5,000 UNIT/ML 1 ML VIAL SUBCUT SCH (23:16)
[2019-12-04] MEDS: PANTOPRAZOLE SODIUM 40 MG VIAL IV SCH (23:16)
[2019-12-05] MEDS: METRONIDAZOLE 500 MG/NS RTU 500 MG/100 ML RTUPB IV SCH ×5 (00:38→23:18)
[2019-12-05] MEDS: MORPHINE SULFATE 10 MG/ML INJ IV PRN ×2 (00:39→20:52)
[2019-12-05] MEDS: OXYCODONE-ACETAMINOPHEN 5-325 MG TABLET PO PRN ×5 (01:59→23:18)
[2019-12-05 06:05] LABS: ABSOLUTE BASOPHILS # (AUTO) 0.1 10^3/uL (0.0-0.2); ABSOLUTE EOSINOPHILS # (AUTO) 0.1 10^3/uL (0.0-0.6); ABSOLUTE LYMPHOCYTES (AUTO) 2.2 10^3/uL (0.5-4.7); ABSOLUTE MONOCYTES (AUTO) 0.8 10^3/uL (0.1-1.4); ABSOLUTE NEUT (AUTO) 9.8 10^3/uL (1.7-8.2); BASOPHILS % (AUTO) 0.5 % (0-2); EOSINOPHILS % (AUTO) 0.4 % (0-6); HEMATOCRIT 34.1 % (36.0-47.0); HEMOGLOBIN 11.3 g/dL (12.0-15.5); LYMPHOCYTES % (AUTO) 16.9 % (13-45); MEAN CORPUSCULAR HGB CONC 33.2 g/dL (32.0-36.0); MEAN CORPUSCULAR VOLUME 75 fl (80-97); MONOCYTES % (AUTO) 6.2 % (3-13); PLATELET COUNT 235 10^3/uL (150-450); RED BLOOD COUNT 4.52 10^6/uL (3.72-5.28); TOTAL CELLS COUNTED % (AUTO) 100 %; WHITE BLOOD COUNT 12.9 10^3/uL (4.0-10.5)
[2019-12-05 06:25] LABS: ALBUMIN 3.2 g/dL (3.5-5.0); ALKALINE PHOSPHATASE 57 U/L (38-126); ANION GAP 5 (5-19); ASPARTATE AMINO TRANSFERASE 17 U/L (14-36); BILIRUBIN,TOTAL 0.9 mg/dL (0.2-1.3); BLOOD UREA NITROGEN 10 mg/dL (7-20); CALCIUM 8.5 mg/dL (8.4-10.2); CARBON DIOXIDE 24 mmol/L (22-30); CHLORIDE 108 mmol/L (98-107); GLUCOSE 74 mg/dL (75-110); POTASSIUM 3.4 mmol/L (3.6-5.0); TOTAL PROTEIN 5.9 g/dL (6.3-8.2)
[2019-12-05] MEDS: HEPARIN SOD (PORCINE) 5,000 UNIT/ML 1 ML VIAL SUBCUT SCH ×3 (07:01→21:03)
--- NOTE | 2019-12-05 08:32 | RADIOLOGY REPORT (SQ) ---
EXAM DESCRIPTION: CT ABD/PELVIS NO ORAL OR IV COMPLETED DATE/TIME: 12/04/2019 6:41 pm REASON FOR STUDY: r/o diverticultis COMPARISON: None. TECHNIQUE: CT scan of the abdomen and pelvis performed without intravenous or oral contrast. Images reviewed with lung, soft tissue, and bone windows. Reconstructed coronal and sagittal MPR images revi ewed. All images stored on PACS. All CT scanners at this facility use dose modulation, iterative reconstruction, and/or weight based d osing when appropriate to reduce radiation dose to as low as reasonably achievable (ALARA). [facility]: Dose Right [facility]: CareDose [facility]: Dose Right [facility]: Teradose 4D [facility]: Smart KelDoc RADIATION DOSE: CT Rad equipment meets quality standard of care and radiation dose reduction techniq ues were employed. CTDIvol: 14.4 mGy. DLP: 732 mGy-cm.mGy. LIMITATIONS: None. FINDINGS: LOWER CHEST: No significant findings. No nodules or infiltrates. NON-CONTRASTED LIVER, SPLEEN, ADRENALS: Evaluation limited by lack of IV contrast. Thickening of the left adrenal gland measuring up to 12 mm with low internal attenuation, likely adrenal adenoma. Unr emarkable right adrenal gland. No identified significant masses. PANCREAS: No masses. No peripancreatic inflammatory changes. GALLBLADDER: No identified stones by CT criteria. No inflammatory changes to suggest cholecystitis. RIGHT KIDNEY AND URETER: No suspicious masses. Assessment limited by lack of IV contrast. No signif icant calcifications. No hydronephrosis or hydroureter. LEFT KIDNEY AND URETER: No suspicious masses. Assessment limited by lack of IV contrast. No signifi cant calcifications. No hydronephrosis or hydroureter. AORTA AND RETROPERITONEUM: No aneurysm. No retroperitoneal masses or adenopathy. BOWEL AND PERITONEAL CAVITY: Postsurgical changes from prior bowel resection with left lower quadrant ostomy and anastomotic line within the central abdomen and sigmoid colon. No evidence of intestinal obstruction. No focal bowel wall thickening. Scattered colonic diverticula. No evidence of divert iculitis. APPENDIX: Not clearly identified. PELVIS, BLADDER, AND ABDOMINAL WALL:Unremarkable weak urinary bladder. There is a low-attenuation cy stic lesion within the left adnexum measuring 5.0 cm, likely functional ovarian cyst. Unremarkable r ight adnexum. Small fat containing umbilical hernia. BONES: No acute bony abnormality. No suspicious osseous lesions. OTHER: No other significant finding. IMPRESSION: 1. Postsurgical changes from prior bowel resection with left lower quadrant ostomy. No evidence of intestinal obstruction or other acute gastrointestinal process. 2. 5.0 cm cystic lesion within the left adnexum, likely functional ovarian cyst. Recommend six-shaquille h follow-up pelvic ultrasound to ensure stability/ resolution. 3. Additional findings as above. COMMENT: Quality ID # [id number]: Final reports with documentation of one or more dose reduction techniques (e.g., Automated exposure control, adjustment of the mA and/or kV according to patient size, use of iterative reconstruction technique) TECHNICAL DOCUMENTATION: JOB ID: [id number] 2010 [email or web address]- All Rights Reserved Reading location - IP/workstation name: [email or web address]
[2019-12-05] MEDS: PANTOPRAZOLE SODIUM 40 MG VIAL IV SCH ×2 (09:26→20:59)
[2019-12-05] MEDS: LEVOFLOXACIN 750 MG/D5W RTU 750 MG/150 ML RTUPB IV SCH (09:35)
[2019-12-05] MEDS ORDERED: POTASSIUM CHLORIDE 10 MEQ TABLET.ER PO ONE (11:00)
--- NOTE | 2019-12-05 17:24 | PDOC PROGRESS REPORT ---
Subjective Progress Note for:: 12/05/19 Subjective:: JI COBURN is a 29 year old female past medical history of congestive heart failure, hypertension, COPD, tobacco abuse, hyperlipidemia, morbid obesity, perforated diverticulitis status post partial colectomy and ostomy placement 2019 presenting with acute onset abdominal pain. Abdominal pain started this morning, left lower quadrant, burning in nature, 10/10 in severity scale, radiating to the back, worse with eating and movement, relieved by morphine, associated with subjective fever, nausea and bilious vomiting x2. Denies any sick contact, any recent travel, denies any chest pain, shortness of breath or any urinary symptoms. 12/05/2019. No acute events overnight. Abdominal pain is improving, notes more intermittent, denies any fever, chills, nausea, vomiting, diarrhea, constipation or any urinary symptoms. Possible discharge home tomorrow. Reason For Visit: COLITIS, NAUSEA, VOMITING Physical Exam Vital Signs: Temp Pulse Resp BP Pulse Ox 98.2 F 78 18 134/74 H 99 12/05/19 11:15 12/05/19 11:15 12/05/19 11:15 12/05/19 11:15 12/05/19 11:15 Intake & Output 12/04/19 12/05/19 12/06/19 06:59 06:59 06:59 Intake Total 1400 1150 Balance 1400 1150 Weight 89.7 kg General appearance: PRESENT: obese Head exam: PRESENT: atraumatic, normocephalic Respiratory exam: PRESENT: clear to auscultation [place]. ABSENT: rales, rhonchi, wheezes Cardiovascular exam: PRESENT: RRR. ABSENT: diastolic murmur, rubs, systolic mur mur GI/Abdominal exam: PRESENT: normal bowel sounds, soft, tenderness - Left lower quadrant., other - Ostomy in place. Intact. Patent.. ABSENT: distended, guarding, mass, organolmegaly, rebound Neurological exam: PRESENT: alert, awake, oriented to person, oriented to place, oriented to time, oriented to situation, CN II-XII grossly intact. ABSENT: motor sensory deficit Results Laboratory Results: 12/05/19 05:47 12/05/19 05:47 12/05/19 12/05/19 05:47 05:47 WBC 12.9 H RBC 4.52 Hgb 11.3 L Hct 34.1 L MCV 75 L MCH 25.0 L MCHC 33.2 RDW 18.0 H Plt Count 235 Seg Neutrophils % 76.0 Sodium 137.4 Potassium 3.4 L Chloride 108 H Carbon Dioxide 24 Anion Gap 5 BUN 10 Creatinine 0.81 Est GFR ( Amer) > 60 Glucose 74 L Calcium 8.5 Magnesium 1.8 Total Bilirubin 0.9 AST 17 Alkaline Phosphatase 57 Total Protein 5.9 L Albumin 3.2 L 12/04/19 14:55 Clean Catch Midstream Urine Culture - Final Mixed Urogenital Nancy Impressions: Abdomen/Pelvis CT 12/04/19 00:00 IMPRESSION: 1. Postsurgical changes from prior bowel resection with left lower quadrant ostomy. No evidence of intestinal obstruction or other acute gastrointestinal process. 2. 5.0 cm cystic lesion within the left adnexum, likely functional ovarian cyst. Recommend six-month follow-up pelvic ultrasound to ensure stability/ resolution. 3. Additional findings as above. Assessment and Plan - Diagnosis (1) Abdominal pain Qualifiers: Abdominal location: lower abdomen, unspecified Qualified Code(s): R10.30 - Lower abdominal pain, unspecified Is this a current diagnosis for this admission?: Yes Plan: Improving. Likely colitis Left lower quadrant tenderness with neutrophil leukocytosis. Abdominal CT negative for any acute abnormalities. Continue empiric IV antibiotics. Follow-up cultures. (2) History of diverticulitis Is this a current diagnosis for this admission?: Yes Plan: History of perforated diverticulitis status post partial colectomy and colostomy placed. Ostomy patent. Continue ostomy care. (3) Nausea & vomiting Qualifiers: Vomiting type: unspecified Vomiting Intractability: non-intractable [place]emar lified Code(s): R11.2 - Nausea with vomiting, unspecified Is this a current diagnosis for this admission?: Yes Plan: Resolved. Mostly due to #1. Supportive measures. Monitor volume status and electrolyte replace as needed. (4) Hyperlipidemia Is this a current diagnosis for this admission?: Yes Plan: Start home meds. (5) Hypertension Is this a current diagnosis for this admission?: Yes Plan: Potassium. Euvolemic. Restart home meds. Adjust meds as needed. Outpatient PCP follow-up. (6) SOLO (obstructive sleep apnea) Is this a current diagnosis for this admission?: Yes Plan: Nocturnal CPAP. Not compliant with nocturnal CPAP. (7) Obesity Qualifiers: Body mass index: BMI 31.0-31.9 Is this a current diagnosis for this admission?: Yes Plan: Diet and lifestyle modification recommended. (8) Tobacco abuse Is this a current diagnosis for this admission?: Yes Plan: Consult on quitting. NicoDerm patch will be provided.
[2019-12-05] MEDS: DIPHENHYDRAMINE HCL 25 MG CAPSULE PO PRN (23:18)
[2019-12-06] MEDS: MORPHINE SULFATE 10 MG/ML INJ IV PRN ×2 (02:54→09:17)
[2019-12-06] MEDS: HEPARIN SOD (PORCINE) 5,000 UNIT/ML 1 ML VIAL SUBCUT SCH ×3 (05:32→21:14)
[2019-12-06 05:37] LABS: ABSOLUTE EOSINOPHILS # (AUTO) 0.2 10^3/uL (0.0-0.6); ABSOLUTE LYMPHOCYTES (AUTO) 1.8 10^3/uL (0.5-4.7); ABSOLUTE MONOCYTES (AUTO) 0.6 10^3/uL (0.1-1.4); ABSOLUTE NEUT (AUTO) 5.2 10^3/uL (1.7-8.2); BASOPHILS % (AUTO) 0.6 % (0-2); EOSINOPHILS % (AUTO) 2.4 % (0-6); LYMPHOCYTES % (AUTO) 22.7 % (13-45); MEAN CORPUSCULAR HEMOGLOBIN 24.6 pg (27.0-33.4); MEAN CORPUSCULAR HGB CONC 32.3 g/dL (32.0-36.0); MEAN CORPUSCULAR VOLUME 76 fl (80-97); MONOCYTES % (AUTO) 7.7 % (3-13); PLATELET COUNT 225 10^3/uL (150-450); RED BLOOD COUNT 4.47 10^6/uL (3.72-5.28); SEGMENTED NEUTROPHILS % (AUTO) 66.6 % (42-78); TOTAL CELLS COUNTED % (AUTO) 100 %; WHITE BLOOD COUNT 7.8 10^3/uL (4.0-10.5)
[2019-12-06] MEDS: OXYCODONE-ACETAMINOPHEN 5-325 MG TABLET PO PRN ×3 (05:56→20:08)
[2019-12-06] MEDS: DIPHENHYDRAMINE HCL 25 MG CAPSULE PO PRN ×3 (05:56→20:08)
[2019-12-06] MEDS: METRONIDAZOLE 500 MG/NS RTU 500 MG/100 ML RTUPB IV SCH (05:56)
[2019-12-06 06:02] LABS: ANION GAP 5 (5-19); BLOOD UREA NITROGEN 6 mg/dL (7-20); CALCIUM 8.4 mg/dL (8.4-10.2); CARBON DIOXIDE 25 mmol/L (22-30); CHLORIDE 106 mmol/L (98-107); GLUCOSE 72 mg/dL (75-110); POTASSIUM 3.6 mmol/L (3.6-5.0)
[2019-12-06] MEDS: LEVOFLOXACIN 750 MG/D5W RTU 750 MG/150 ML RTUPB IV SCH (09:06)
[2019-12-06] MEDS: PANTOPRAZOLE SODIUM 40 MG VIAL IV SCH ×2 (09:06→21:23)
--- NOTE | 2019-12-06 11:38 | PDOC PROGRESS REPORT ---
Subjective Progress Note for:: 12/06/19 Subjective:: JI COBURN is a 29 year old female past medical history of congestive heart failure, hypertension, COPD, tobacco abuse, hyperlipidemia, morbid obesity, perforated diverticulitis status post partial colectomy and ostomy placement 2019 presenting with acute onset abdominal pain. Abdominal pain started this morning, left lower quadrant, burning in nature, 10/10 in severity scale, radiating to the back, worse with eating and movement, relieved by morphine, associated with subjective fever, nausea and bilious vomiting x2. Denies any sick contact, any recent travel, denies any chest pain, shortness of breath or any urinary symptoms. 12/05/2019. No acute events overnight. Abdominal pain is improving, notes more intermittent, denies any fever, chills, nausea, vomiting, diarrhea, constipation or any urinary symptoms. Possible discharge home tomorrow. 12/06/2019. No acute events overnight. Was a bit nauseous last night otherwise tolerating her oral intake. Abdominal pain has resolved, denies any fever, chills, abdominal pain, diarrhea, constipation or any urinary symptoms. Patient could be potentially discharged home however she has 1 blood culture positive for gram-positive rods pending sensitivity. Reason For Visit: COLITIS, NAUSEA, VOMITING Physical Exam Vital Signs: Temp Pulse Resp BP Pulse Ox 98.3 F 90 16 136/91 H 93 12/05/19 23:57 12/05/19 23:57 12/05/19 23:57 12/05/19 23:57 12/05/19 23:57 Intake & Output 12/05/19 12/06/19 12/07/19 06:59 06:59 06:59 Intake Total 1400 2300 150 Balance 1400 2300 150 Weight 89.7 kg 89.9 kg General appearance: PRESENT: no acute distress, well-developed, well-nourished Head exam: PRESENT: atraumatic, normocephalic Respiratory exam: PRESENT: clear to auscultation [place]. ABSENT: rales, rhonchi, wheezes Cardiovascular exam: PRESENT: RRR. ABSENT: diastolic murmur, rubs, systolic murmur GI/Abdominal exam: PRESENT: normal bowel sounds, soft, other - Ostomy patent.. ABSENT: distended, guarding, mass, organolmegaly, rebound, tenderness Neurological exam: PRESENT: alert, awake, oriented to person, oriented to place, oriented to time, oriented to situation, CN II-XII grossly intact. ABSENT: motor sensory deficit Results Laboratory Results: 12/06/19 04:49 12/06/19 04:49 12/06/19 12/06/19 04:49 04:49 WBC 7.8 RBC 4.47 Hgb 11.0 L Hct 34.0 L MCV 76 L MCH 24.6 L MCHC 32.3 RDW 18.0 H Plt Count 225 Seg Neutrophils % 66.6 Sodium 135.8 L Potassium 3.6 Chloride 106 Carbon Dioxide 25 Anion Gap 5 BUN 6 L Creatinine 0.85 Est GFR ( Amer) > 60 Glucose 72 L Calcium 8.4 12/04/19 18:17 Blood Blood Culture (PCR) - Final 12/04/19 14:55 Clean Catch Midstream Urine Culture - Final Mixed Urogenital Nancy Impressions: Abdomen/Pelvis CT 12/04/19 00:00 IMPRESSION: 1. Postsurgical changes from prior bowel resection with left lower quadrant ostomy. No evidence of intestinal obstruction or other acute gastrointestinal process. 2. 5.0 cm cystic lesion within the left adnexum, likely functional ovarian cyst. Recommend six-month follow-up pelvic ultrasound to ensure stability/ resolution. 3. Additional findings as above. Assessment and Plan - Diagnosis (1) Abdominal pain Qualifiers: Abdominal location: lower abdomen, unspecified Qualified Code(s): R10.30 - Lower abdominal pain, unspecified Is this a current diagnosis for this admission?: Yes Plan: Improving. Likely colitis Left lower quadrant tenderness with neutrophil leukocytosis. Abdominal CT negative for any acute abnormalities. Received 2 days of antibiotics. Switch to p.o. antibiotics. (2) History of diverticulitis Is this a current diagnosis for this admission?: Yes Plan: History of perforated diverticulitis status post partial colectomy and colostomy placed. Ostomy patent. Continue ostomy care. (3) Nausea & vomiting Qualifiers: Vomiting type: unspecified Vomiting Intractability: non-intractable Qualified Code(s): R11.2 - Nausea with vomiting, unspecified Is this a current diagnosis for this admission?: Yes Plan: Resolved. Mostly due to #1. Supportive measures. Monitor volume status and electrolyte replace as needed. (4) Hyperlipidemia Is this a current diagnosis for this admission?: Yes Plan: Start home meds. (5) Hypertension Is this a current diagnosis for this admission?: Yes Plan: Potassium. Euvolemic. Restart home meds. Adjust meds as needed. Outpatient PCP follow-up. (6) SOLO (obstructive sleep apnea) Is this a current diagnosis for this admission?: Yes Plan: Nocturnal CPAP. Not compliant with nocturnal CPAP. (7) Obesity Qualifiers: Body mass index: BMI 31.0-31.9 Is this a current diagnosis for this admission?: Yes Plan: Diet and lifestyle modification recommended. (8) Tobacco abuse Is this a current diagnosis for this admission?: Yes Plan: Consult on quitting. NicoDerm patch will be provided.
[2019-12-06] MEDS: METRONIDAZOLE 500 MG TABLET PO SCH ×2 (14:34→21:22)
[2019-12-06] MEDS: FUROSEMIDE 40 MG TABLET PO SCH (17:04)
[2019-12-06] MEDS: LOSARTAN POTASSIUM 25 MG TABLET PO SCH (21:22)
[2019-12-06] MEDS: METOPROLOL SUCCINATE 50 MG TAB.SR.24H PO SCH (21:22)
[2019-12-07] MEDS: HEPARIN SOD (PORCINE) 5,000 UNIT/ML 1 ML VIAL SUBCUT SCH (05:20)
[2019-12-07] MEDS: DIPHENHYDRAMINE HCL 25 MG CAPSULE PO PRN (05:21)
[2019-12-07] MEDS: OXYCODONE-ACETAMINOPHEN 5-325 MG TABLET PO PRN ×2 (05:21→10:54)
[2019-12-07] MEDS: METRONIDAZOLE 500 MG TABLET PO SCH (05:21)
[2019-12-07] MEDS: PANTOPRAZOLE SODIUM 40 MG VIAL IV SCH (09:18)
[2019-12-07] MEDS: METOPROLOL SUCCINATE 50 MG TAB.SR.24H PO SCH (09:18)
[2019-12-07] MEDS: FUROSEMIDE 40 MG TABLET PO SCH (09:18)
[2019-12-07] MEDS: LOSARTAN POTASSIUM 25 MG TABLET PO SCH (09:18)
[2019-12-07] MEDS ORDERED: SERTRALINE HCL 50 MG TABLET PO SCH (10:00)
[2019-12-07] MEDS ORDERED: LEVOFLOXACIN 500 MG TABLET PO SCH (10:00)
[2019-12-07 12:34] VITALS: BP 135/81
--- NOTE | 2019-12-07 18:03 | PDOC DISCHARGE SUMMARY ---
Impression - Admit/DC Date/PCP Admission Date/Primary Care Provider: 12/04/19 18:04 Discharge Date: 12/07/19 - Discharge Diagnosis (1) Abdominal pain Is this a current diagnosis for this admission?: Yes (2) History of diverticulitis Is this a current diagnosis for this admission?: Yes (3) Nausea & vomiting Is this a current diagnosis for this admission?: Yes (4) Hyperlipidemia Is this a current diagnosis for this admission?: Yes (5) Hypertension Is this a current diagnosis for this admission?: Yes (6) SOLO (obstructive sleep apnea) Is this a current diagnosis for this admission?: Yes (7) Obesity Is this a current diagnosis for this admission?: Yes (8) Tobacco abuse Is this a current diagnosis for this admission?: Yes - Additional Information Discharge Diet: As Tolerated Discharge Activity: Activity As Tolerated, Balance Activity w/Rest Referrals: [facility] [Outside] Prescriptions: Ciprofloxacin HCl [Cipro] 500 mg PO BID 7 Days #14 tablet Metronidazole 500 mg PO TID 7 Days #21 tablet Promethazine HCl [Phenergan 25 mg Tablet] 12.5 mg PO Q6 6 Days #12 tablet Home Medications: Losartan Potassium [Cozaar 25 mg Tablet] 25 mg PO Q12 30 Days #60 tablet 0 04/24/19 Metoprolol Succinate [Toprol Xl 50 mg Tab.sr] 50 mg PO Q12 30 Days #60 tab.sr.24h 04/24/19 Carvedilol [Coreg 3.125 mg Tablet] 3.125 mg PO DAILY 12/04/19 Furosemide [Lasix 40 mg Tablet] 40 mg PO BID 12/04/19 Sertraline HCl [Zoloft 50 mg Tablet] 50 mg PO DAILY 12/04/19 Ciprofloxacin HCl [Cipro] 500 mg PO BID 7 Days #14 tablet 12/07/19 Metronidazole 500 mg PO TID 7 Days #21 tablet 12/07/19 Promethazine HCl [Phenergan 25 mg Tablet] 12.5 mg PO Q6 6 Days #12 tablet 12/07/19 History of Present Illiness History of Present Illness: JI COBURN is a 29 year old female past medical history of congestive heart failure, hypertension, COPD, tobacco abuse, hyperlipidemia, morbid obesity, perforated diverticulitis status post partial colectomy and ostomy placement 2018 presenting with acute onset abdominal pain. Abdominal pain started this morning, left lower quadrant, burning in nature, 10/10 in severity scale, radiating to the back, worse with eating and movement, relieved by morphine, associated with subjective fever, nausea and bilious vomiting x2. Denies any sick contact, any recent travel, denies any chest pain, shortness of breath or any urinary symptoms. Hospital Course Hospital Course: (1) Abdominal pain Resolved. Likely colitis Presented with left lower quadrant tenderness with neutrophilic leukocytosis. Abdominal CT negative for any acute abnormalities. Received 3 days of IV levofloxacin and metronidazole. Discharged on ciprofloxacin and metronidazole for another 7 days. Blood cultures 1/2 positive for gram-negative cocci to be Corynebacterium species. Repeat blood cultures remained negative. (2) History of diverticulitis History of perforated diverticulitis status post partial colectomy and colostomy placed. Ostomy patent. Continued ostomy care. (3) Nausea & vomiting Resolved. Mostly due to #1. (4) Hyperlipidemia Restarted home meds. (5) Hypertension Potassium. Euvolemic. Restart home meds. Adjust meds as needed. Outpatient PCP follow-up. (6) SOLO (obstructive sleep apnea) Nocturnal CPAP was started, but not compliant with nocturnal CPAP. (7) Obesity Diet and lifestyle modification recommended. (8) Tobacco abuse Consult on quitting. NicoDerm patch will be provided. Physical Exam Vital Signs: Temp Pulse Resp BP Pulse Ox 98.1 F 78 17 135/81 H 100 12/07/19 12:16 12/07/19 12:16 12/07/19 12:16 12/07/19 12:16 12/07/19 12:16 Intake & Output 12/06/19 12/07/19 12/08/19 06:59 06:59 06:59 Intake Total 2300 2614 605 Balance 2300 2614 605 Weight 89.9 kg 93.5 kg General appearance: PRESENT: obese Head exam: PRESENT: atraumatic, normocephalic Respiratory exam: PRESENT: clear to auscultation [place]annah. ABSENT: rales, rhonchi, wheezes Cardiovascular exam: PRESENT: RRR. ABSENT: diastolic murmur, rubs, systolic murmur GI/Abdominal exam: PRESENT: normal bowel sounds, soft, other - ostomy patent.. ABSENT: distended, guarding, mass, organolmegaly, rebound, tenderness Extremities exam: PRESENT: full ROM. ABSENT: calf tenderness, clubbing, pedal edema Neurological exam: PRESENT: alert, awake, oriented to person, oriented to place, oriented to time, oriented to situation, CN II-XII grossly intact. ABSENT: motor sensory deficit Results Laboratory Results: WBC 7.8 10^3/uL (4.0-10.5) 12/06/19 04:49 RBC 4.47 10^6/uL (3.72-5.28) 12/06/19 04:49 Hgb 11.0 g/dL (12.0-15.5) L 12/06/19 04:49 Hct 34.0 % (36.0-47.0) L 12/06/19 04:49 MCV 76 fl (80-97) L 12/06/19 04:49 MCH 24.6 pg (27.0-33.4) L 12/06/19 04:49 MCHC 32.3 g/dL (32.0-36.0) 12/06/19 04:49 RDW 18.0 % (11.5-14.0) H 12/06/19 04:49 Plt Count 225 10^3/uL (150-450) 12/06/19 04:49 Lymph % (Auto) 22.7 % (13-45) 12/06/19 04:49 [place] % (Auto) 7.7 % (3-13) 12/06/19 04:49 Eos % (Auto) 2.4 % (0-6) 12/06/19 04:49 Baso % (Auto) 0.6 % (0-2) 12/06/19 04:49 Absolute Neuts (auto) 5.2 10^3/uL (1.7-8.2) 12/06/19 04:49 Absolute Lymphs (auto) 1.8 10^3/uL (0.5-4.7) 12/06/19 04:49 Absolute Monos (auto) 0.6 10^3/uL (0.1-1.4) 12/06/19 04:49 Absolute Eos (auto) 0.2 10^3/uL (0.0-0.6) 12/06/19 04:49 Absolute Basos (auto) 0.0 10^3/uL (0.0-0.2) 12/06/19 04:49 Seg Neutrophils % 66.6 % (42-78) 12/06/19 04:49 Sodium 135.8 mmol/L (137-145) L 12/06/19 04:49 Potassium 3.6 mmol/L (3.6-5.0) 12/06/19 04:49 Chloride 106 mmol/L (98-107) 12/06/19 04:49 Carbon Dioxide 25 mmol/L (22-30) 12/06/19 04:49 Anion Gap 5 (5-19) 12/06/19 04:49 BUN 6 mg/dL (7-20) L 12/06/19 04:49 Creatinine 0.85 mg/dL (0.52-1.25) 12/06/19 04:49 Est GFR ( Amer) > 60 (>60) 12/06/19 04:49 Est GFR (MDRD) Non-Af > 60 (>60) 12/06/19 04:49 Glucose 72 mg/dL (75-110) L 12/06/19 04:49 Calcium 8.4 mg/dL (8.4-10.2) 12/06/19 04:49 Magnesium 1.8 mg/dL (1.6-2.3) 12/05/19 05:47 Total Bilirubin 0.9 mg/dL (0.2-1.3) 12/05/19 05:47 Direct Bilirubin 0.0 mg/dL (0.0-0.4) 12/05/19 05:47 Neonat Total Bilirubin Not Reportable 12/05/19 05:47 Neonat Direct Bilirubin Not Reportable 12/05/19 05:47 Neonat Indirect Bili Not Reportable 12/05/19 05:47 AST 17 U/L (14-36) 12/05/19 05:47 ALT 15 U/L (<35) 12/05/19 05:47 Alkaline Phosphatase 57 U/L (38-126) 12/05/19 05:47 Total Protein 5.9 g/dL (6.3-8.2) L 12/05/19 05:47 Albumin 3.2 g/dL (3.5-5.0) L 12/05/19 05:47 Lipase 63.1 U/L (23-300) 12/04/19 14:55 Serum HCG, Qual NEGATIVE (NEGATIVE) 12/04/19 14:55 Urine Color YELLOW 12/04/19 14:55 Urine Appearance CLEAR 12/04/19 14:55 Urine pH 5.0 (5.0-9.0) 12/04/19 14:55 Ur Specific [place] 1.006 12/04/19 14:55 Urine Protein 30 mg/dL (NEGATIVE) H 12/04/19 14:55 Urine Glucose (UA) NEGATIVE mg/dL (NEGATIVE) 12/04/19 14:55 Urine Ketones NEGATIVE mg/dL (NEGATIVE) 12/04/19 14:55 Urine Blood NEGATIVE (NEGATIVE) 12/04/19 14:55 Urine Nitrite (Reflex) NEGATIVE (NEGATIVE) 12/04/19 14:55 Urine Bilirubin NEGATIVE (NEGATIVE) 12/04/19 14:55 Urine Urobilinogen NEGATIVE mg/dL (<2.0) 12/04/19 14:55 Leukocyte Esterase Rfl NEGATIVE (NEGATIVE) 12/04/19 14:55 Urine RBC (Auto) 1 /HPF 12/04/19 14:55 U Hyaline Cast (Auto) 4 /LPF 12/04/19 14:55 Urine Bacteria (Auto) 3+ /HPF 12/04/19 14:55 Urine WBC (Reflex) 2 /HPF 12/04/19 14:55 Squamous Epi Cells Auto 1 /HPF 12/04/19 14:55 Urine Mucus (Auto) RARE /LPF 12/04/19 14:55 Urine Ascorbic Acid NEGATIVE (NEGATIVE) 12/04/19 14:55 Impressions: Abdomen/Pelvis CT 12/04/19 00:00 IMPRESSION: 1. Postsurgical changes from prior bowel resection with left lower quadrant ostomy. No evidence of intestinal obstruction or other acute gastrointestinal process. 2. 5.0 cm cystic lesion within the left adnexum, likely functional ovarian cyst. Recommend six-month follow-up pelvic ultrasound to ensure stability/ resolution. 3. Additional findings as above. Stroke Is this a Stroke Patient?: No Acute Heart Failure - Is this a Heart Failure Patient?: No
== END 2019-12-07 12:50 | disposition home or self-care (01) | DRG 392 ==
LOC: ER 14:10 → EH 18:04 → 4N 12-05 13:46
PROVIDERS: ADMIT Internal Medicine; ATTEND Internal Medicine
DX: K52.9 Noninfective gastroenteritis and colitis, unspecified (principal); I11.0 Hypertensive heart disease with heart failure; I50.9 Heart failure, unspecified; E66.01 Morbid (severe) obesity due to excess calories; G47.33 Obstructive sleep apnea (adult) (pediatric); E78.5 Hyperlipidemia, unspecified; F17.200 Nicotine dependence, unspecified, uncomplicated; J44.9 Chronic obstructive pulmonary disease, unspecified; Z93.3 Colostomy status; Z90.49 Acquired absence of other specified parts of digestive tract; Z88.6 Allergy status to analgesic agent; Z68.31 Body mass index [BMI] 31.0-31.9, adult; Z91.19 Patient's noncompliance with other medical treatment and regimen; Z82.49 Family history of ischemic heart disease and other diseases of the circulatory system
CPT/HCPCS: 36415; 74176; 80048; 80053; 81001; 83690; 83735; 84703; 85025; 87040; 87077; 87086; 87150; 96361; 96374; 99285; C9113; J0744; J1170; J1644; J1956; J2270; J2405; J2765; J3490; J7030

== ENCOUNTER 2020-04-01 01:38 | Emergency (ER) | payer OTHER ==
[2020-04-01] MEDS ORDERED: NORMAL SALINE 1000 ML 1,000 ML IV ONE (02:49)
[2020-04-01 02:59] LABS: ABSOLUTE LYMPHOCYTES (AUTO) 1.3 10^3/uL (0.5-4.7); ABSOLUTE MONOCYTES (AUTO) 0.8 10^3/uL (0.1-1.4); BASOPHILS % (AUTO) 0.3 % (0-2); EOSINOPHILS % (AUTO) 0.1 % (0-6); HEMATOCRIT 30.2 % (36.0-47.0); HEMOGLOBIN 9.8 g/dL (12.0-15.5); LYMPHOCYTES % (AUTO) 8.1 % (13-45); MEAN CORPUSCULAR HEMOGLOBIN 25.4 pg (27.0-33.4); MEAN CORPUSCULAR HGB CONC 32.4 g/dL (32.0-36.0); MEAN CORPUSCULAR VOLUME 79 fl (80-97); MONOCYTES % (AUTO) 4.7 % (3-13); PLATELET COUNT 138 10^3/uL (150-450); RED BLOOD COUNT 3.85 10^6/uL (3.72-5.28); RED CELL DISTRIBUTION WIDTH 17.1 % (11.5-14.0); SEGMENTED NEUTROPHILS % (AUTO) 86.8 % (42-78); TOTAL CELLS COUNTED % (AUTO) 100 %; WHITE BLOOD COUNT 16.1 10^3/uL (4.0-10.5)
--- NOTE | 2020-04-01 03:10 | ER Document Report ---
ED GI/ - General Chief Complaint: Vaginal Bleeding Stated Complaint: VAGINAL BLEEDING Time Seen by Provider: 04/01/20 02:42 Primary Care Provider: [facility] [Provider Group] - Follow up as needed [facility] [Primary Care Provider] - Follow up as needed Mode of Arrival: Ambulatory Information source: Patient Notes: 30-year-old female presented to ED for complaint of vaginal bleeding with no pelvic pain. She states she started having vaginal bleeding about 1030 11:00 tonight. She states she went through 4 pads in less than an hour and then she stopped putting pads down to start sitting on a towel. She states before coming to the emergency room she put on a depends. She is alert oriented respirations regular nonlabored speaking in full sentences. She states that she has had irregular vaginal bleeding in the past. She states her last menstrual cycle was 03/25/2020. TRAVEL OUTSIDE OF THE [place] IN LAST 30 DAYS: No - HPI Patient complains to provider of: Vaginal bleeding Timing/Duration: Gradual Quality of pain: No pain Pain Level: Denies Vaginal bleeding (Compared to normal period): Heavier LMP: 03/25/2020 Associated symptoms: Other - Vaginal bleeding Exacerbated by: Denies Relieved by: Denies Similar symptoms previously: Yes Recently seen / treated by doctor: No - Related Data Allergies/Adverse Reactions: aspirin [From Excedrin Migraine] Allergy (Verified 12/04/19 14:31) caffeine [From Excedrin Migraine] Allergy (Verified 12/04/19 14:31) ibuprofen [From Advil] Allergy (Verified 12/04/19 14:31) Home Medications: lasix. losartan. ibuprofen. metoprolol Past Medical History - General Information source: Patient - Social History Smoking Status: Current Every Day Smoker Chew tobacco use (# tins/day): No Frequency of alcohol use: Occasional Drug Abuse: None Lives with: Family Family History: Hypertension Patient has suicidal ideation: No Patient has homicidal ideation: No - Past Medical History Cardiac Medical History: Reports: Hx Congestive Heart Failure, Hx Hypercholesterolemia, Hx Hypertension Pulmonary Medical History: Reports: None EENT Medical History: Reports: None Neurological Medical History: Reports: None Endocrine Medical History: Reports: None Renal/ Medical History: Reports: None Malignancy Medical History: Reports: None GI Medical History: Reports: Hx Diverticulitis - Colostomy, Hx Colonoscopy Musculoskeletal Medical History: Reports None Skin Medical History: Reports Hx Cellulitis Psychiatric Medical History: Reports: None Traumatic Medical History: Reports: None Infectious Medical History: Reports: None Past Surgical History: Reports: Hx Abdominal Surgery - ostomy, Hx Bowel Diversion, Hx Bowel Surgery, Hx Colostomy - Colostomy with partial colectomy March 2019 for perforated diverticulitis, Other - Partial colectomy performed from likely perforated diverticulitis - Immunizations Immunizations up to date: Yes Hx Diphtheria, Pertussis, Tetanus Vaccination: Yes Review of Systems - Review of Systems Constitutional: No symptoms reported EENT: No symptoms reported Cardiovascular: No symptoms reported Respiratory: No symptoms reported Gastrointestinal: No symptoms reported Genitourinary: No symptoms reported Female Genitourinary: No symptoms reported Musculoskeletal: No symptoms reported Skin: No symptoms reported Hematologic/Lymphatic: No symptoms reported Neurological/Psychological: No symptoms reported -: Yes All other systems reviewed and negative Physical Exam - Vital signs Vitals: Temp Pulse Resp BP Pulse Ox 97.8 F 74 22 H 92/56 L 99 04/01/20 01:47 04/01/20 01:47 04/01/20 01:47 04/01/20 01:47 04/01/20 01:47 Interpretation: Normal - General General appearance: Appears well, Alert - HEENT Head: Normocephalic, Atraumatic Eyes: Normal Pupils: PERRL - Respiratory Respiratory status: No respiratory distress Chest status: Nontender Breath sounds: Normal Chest palpation: Normal - Cardiovascular Rhythm: Regular Heart sounds: Normal auscultation Murmur: No - Abdominal Inspection: Normal Distension: No distension Bowel sounds: Normal Tenderness: Nontender Organomegaly: No organomegaly - Genitourinary External exam: Normal Speculum exam: Cervix open Vaginal bleeding: Heavy Bimanuel exam: Normal - Back Back: Normal, Nontender - Extremities General upper extremity: Normal inspection, Nontender, Normal color, Normal ROM, Normal temperature General lower extremity: Normal inspection, Nontender, Normal color, Normal ROM, Normal temperature, Normal weight bearing. No: Pipo's sign - Neurological Neuro grossly intact: Yes Cognition: Normal Orientation: AAOx4 Guillermo Coma Scale Eye Opening: Spontaneous Guillermo Coma Scale Verbal: Oriented Rowe Coma Scale Motor: Obeys Commands Guillermo Coma Scale Total: 15 Speech: Normal Motor strength normal: LUE, RUE, LLE, RLE Sensory: Normal - Psychological Associated symptoms: Normal affect, Normal mood - Skin Skin Temperature: Warm Skin Moisture: Dry Skin Color: Normal Course - Re-evaluation Re-evalutation: 04/01/20 06:54 Labs and ultrasound were discussed with patient. Patient's potassium was 2.9 she has been getting K riders and oral potassium for this potassium level. She is aware that she needs to follow-up with [facility] for her vaginal bleeding. She is not having any active bleeding at this time. She states she was having sexual intercourse when the bleeding first started and she was having large blo od clots. But she states she has not had any large amount of bleeding since her examination. - Vital Signs Vital signs: Temp Pulse Resp BP Pulse Ox 98.6 F 74 27 H 123/90 H 100 04/01/20 09:01 04/01/20 01:47 04/01/20 09:01 04/01/20 09:01 04/01/20 09:01 - Laboratory Result Diagrams: 04/01/20 02:44 04/01/20 02:44 Laboratory results interpreted by me: 04/01/20 04/01/20 04/01/20 02:44 02:44 03:28 WBC 16.1 H Hgb 9.8 L Hct 30.2 L MCV 79 L MCH 25.4 L RDW 17.1 H Plt Count 138 L Lymph % (Auto) 8.1 L Absolute Neuts (auto) 14.0 H Seg Neutrophils % 86.8 H Sodium 133.8 L Potassium 2.9 L* Anion Gap 4 L Calcium 8.3 L Total Protein 5.5 L Albumin 2.9 L Urine Protein 30 H Urine Ketones TRACE H Urine Blood LARGE H Ur Leukocyte Esterase TRACE H - Diagnostic Test Radiology reviewed: Image reviewed, Reports reviewed Discharge - Discharge Clinical Impression: Vaginal bleeding, Hypokalemia Condition: Stable Disposition: HOME, SELF-CARE Additional Instructions: VAGINAL BLEEDING: You are having an episode of abnormal bleeding. Causes of abnormal vaginal bleeding can include miscarriage or tubal , tumors such as cancer or benign fibroids, medication effects, or hormone imbalance. Testing can eliminate unsuspected , tumors, or infection as a cause. "Dysfunctional uterine bleeding" is due to hormone imbalance, and is especially common at times when the normal cycle is disturbed -- whether by recent , use of control pills or hormones, or impending menopause. If the bleeding is innocent, most commonly a short course of hormones is given to restore the uterus to normal. Sometimes, the normal menstrual cycle corrects itself naturally. Sometimes, brief hormone therapy, or even a D&C is required. Your physician will advise you. Treatment for anemia may be required if bleeding is severe. You should rest and avoid intercourse until the bleeding is controlled. Call the doctor or return for re-examination if you feel faint, have increasing pain, or have a major increase in the amount of bleeding. I have given you a copy of your labs and ultrasound please take these with you to the primary care doctor and to the [facility] for your follow-up visits. Hypokalemia You have an abnormally decreased level of serum potassium. Hypokalemia may cause weakness, fatigue, or heart rhythm abnormalities. Sometimes there are no symptoms at all. Usually, low serum potassium is due to taking diuretics (water pills). It can also be due to excessive vomiting or diarrhea. If no obvious cause is evident, further evaluation will be necessary. Treatment is usually oral potassium supplements. Take these exactly as prescribed. You may also want to select foods which are naturally high in potassium -- fruits (such as bananas, cantaloupe, grapes, oranges, prunes, tomatoes), fresh vegetables (potatoes, spinach, beans, peas), orange or tomato juice, tomato pasta sauce, milk, fish (halibut, tuna, salmon, sharyn) A follow-up blood test is usually performed to assure that the potassium is returning to normal. Call the physician if you suffer severe weakness, muscle twitching or cramping, palpitations (pounding or irregular heartbeat), or any other new or alarming symptoms. FOLLOW-UP CARE: If you have been referred to a physician for follow-up care, call the physicians office for an appointment as you were instructed or within the next two days. If you experience worsening or a significant change in your symptoms (very heavy bleeding with large clots of blood, passage of tissue, more severe abdominal / pelvic pain or cramping, feeling faint or severe weakness, fever, etc.), notify the physician immediately or return to the Emergency Department at any time for re-evaluation. OBSTETRIC-GYNECOLOGIC (OB-TURN LA[facility]) PHYSICIANS IN [place]: [facility] [address] [place] [address] [phone] Referrals: [facility] [Primary Care Provider] - Follow up as needed [facility] [Provider Group] - Follow up as needed
[2020-04-01 03:12] LABS: ALBUMIN 2.9 g/dL (3.5-5.0); ALKALINE PHOSPHATASE 56 U/L (38-126); ASPARTATE AMINO TRANSFERASE 22 U/L (14-36); BILIRUBIN,TOTAL 0.7 mg/dL (0.2-1.3); BLOOD UREA NITROGEN 20 mg/dL (7-20); CALCIUM 8.3 mg/dL (8.4-10.2); GLUCOSE 109 mg/dL (75-110); TOTAL PROTEIN 5.5 g/dL (6.3-8.2)
[2020-04-01 03:15] LABS: POTASSIUM 2.9 mmol/L (3.6-5.0)
[2020-04-01 03:18] LABS: CARBON DIOXIDE 25 mmol/L (22-30); CHLORIDE 105 mmol/L (98-107)
[2020-04-01 03:19] LABS: ANION GAP 4 (5-19)
[2020-04-01] MEDS ORDERED: POTASSIUM CHLORIDE 10 MEQ TABLET.ER PO ONE (03:25)
[2020-04-01] MEDS: POTASSI CL 20 MEQ/50 ML RIDER 20 MEQ/50 ML RTUPB IV SCH ×2 (03:55→05:47)
[2020-04-01 04:05] LABS: RBCS (WET MOUNT) FEW RBCS SEEN; T.VAGINALIS (WET MOUNT) NO TRICHOMONAS SEEN; WBCS (WET MOUNT) RARE WBCS SEEN; YEAST (WET MOUNT) NO YEAST SEEN
[2020-04-01 04:14] LABS: APPEARANCE,URINE CLEAR; BILIRUBIN,URINE NEGATIVE (NEGATIVE); COLOR,URINE YELLOW; GLUCOSE, URINE NEGATIVE (NEGATIVE); KETONES,URINE TRACE mg/dL (NEGATIVE); LEUKOCYTE ESTERASE,URINE TRACE (NEGATIVE); NITRITE,URINE NEGATIVE (NEGATIVE); PROTEIN,URINE 30 mg/dL (NEGATIVE); URINE SPECIFIC GRAVITY 1.012; UROBILINOGEN,URINE NEGATIVE mg/dL (<2.0)
--- NOTE | 2020-04-01 04:39 | RADIOLOGY REPORT (SQ) ---
Ultrasound of the pelvis: 04/01/2020 3:37 AM CDT HISTORY: 30-year-old patient with vaginal bleeding. TECHNIQUE: Multiple grayscale and color Doppler images of the pelvis were obtained transvaginally. COMPARISON: CT of abdomen and pelvis from 12/04/2019 FINDINGS: The uterus measures 8.0 x 4.7 x 3.7 cm. The endometrium measures 9-10 mm in thickness. No myometrial mass is seen. Trace free intraperitoneal fluid is seen within the posterior cul-de-sac. The right ovary measures 5.6 x 3.1 x 3.1 cm. There is a hypoechoic cyst seen at the right ovary measuring up to 3.2 x 2.4 x 2.5 cm. This likely represents a physiologic cyst with some internal debris. The left ovary measures 4.0 x 1.9 x 2.5 cm. Arterial waveforms were obtained from both ovaries. IMPRESSION: There is a hypoechoic cyst at the right ovary most likely representing a physiologic cyst with some internal debris. This can be followed in 6-8 weeks to ensure resolution.
[2020-04-01 05:39] LABS: CHLAM PCR NOT DETECTED (NOT DETECT)
[2020-04-01 09:14] VITALS: BP 123/90
== END 2020-04-01 09:14 | disposition home or self-care (01) ==
LOC: ER 01:38
DX: N93.9 Abnormal uterine and vaginal bleeding, unspecified (principal); E87.6 Hypokalemia; I11.0 Hypertensive heart disease with heart failure; I50.9 Heart failure, unspecified; F17.200 Nicotine dependence, unspecified, uncomplicated; Z79.899 Other long term (current) drug therapy; Z79.1 Long term (current) use of non-steroidal anti-inflammatories (NSAID); Z88.8 Allergy status to other drugs, medicaments and biological substances; Z88.6 Allergy status to analgesic agent
CPT/HCPCS: 99284; 96365; 96366; 36415; 87210; 84703; 85025; 80053; 81001; 87491; 87591; 76856; 93976; J3480; J7030

== ENCOUNTER 2020-05-27 21:13 | Emergency (ER) | payer OTHER ==
[2020-05-27 21:20] VITALS: BP 135/79
== END 2020-05-28 07:20 | disposition left against medical advice (07) ==
LOC: ER 21:13
DX: Z53.21 Procedure and treatment not carried out due to patient leaving prior to being seen by health care provider (principal)

== ENCOUNTER 2020-06-07 12:05 | Emergency (ER) | payer OTHER ==
[2020-06-07] MEDS ORDERED: NORMAL SALINE 500 ML IV ONE (13:34)
[2020-06-07] MEDS ORDERED: ONDANSETRON HCL INJ/PF 4 MG/2 ML SDV IV ONE ×2 (13:35→18:30)
--- NOTE | 2020-06-07 13:38 | ER Document Report ---
ED Medical Screen (RME) - General Chief Complaint: Nausea/Vomiting Stated Complaint: NAUSEA/VOMITING,CHEST PAIN Time Seen by Provider: 06/07/20 12:10 Primary Care Provider: DYLAN GRIER [Primary Care Provider] - Follow up as needed Mode of Arrival: Ambulatory Information source: Patient Notes: 30-year-old female presents to ED for complaint of chest pain shortness of breath nausea and vomiting. She states she has a history of CHF COPD and she was scheduled to have a colonoscopy reversed today but was told that she could not do it because she had a leaky heart valve. She states she is having watery stools from her colostomy and is vomiting up clear fluids. She states she is got a follow-up appointment with a calibration laboratory technician on June 16. She states that shortness of breath she is feeling today is not like anything she has had before. I have ordered a cardiac work-up as well as lipase urine and cover testing. The patient was evaluated during the global Covid 19 pandemic, and that diagnosis was suspected/considered upon their initial presentation. Their evaluation, treatment and testing was consistent with current guidelines for patients who present with complaints or symptoms that may be related to Covid 19. I have greeted and performed a rapid initial assessment of this patient. A comprehensive ED assessment and evaluation of the patient, analysis of test results and completion of medical decision making process will be conducted by an additional ED providers. TRAVEL OUTSIDE OF THE [place] IN LAST 30 DAYS: No - Related Data Allergies/Adverse Reactions: aspirin [From Excedrin Migraine] Allergy (Verified 12/04/19 14:31) caffeine [From Excedrin Migraine] Allergy (Verified 12/04/19 14:31) ibuprofen [From Advil] Allergy (Verified 12/04/19 14:31) Past Medical History - Past Medical History Cardiac Medical History: Reports: Hx Congestive Heart Failure, Hx Hypercholesterolemia, Hx Hypertension GI Medical History: Reports: Hx Diverticulitis - Colostomy, Hx Colonoscopy Skin Medical History: Reports Hx Cellulitis Past Surgical History: Reports: Hx Abdominal Surgery - ostomy, Hx Bowel Diversion, Hx Bowel Surgery, Hx Colostomy - Colostomy with partial colectomy March 2019 for perforated diverticulitis, Other - Partial colectomy performed from likely perforated diverticulitis - Immunizations Immunizations up to date: Yes Hx Diphtheria, Pertussis, Tetanus Vaccination: Yes Doctor's Discharge - Discharge [facility] [[facility]] - Follow up as needed
--- NOTE | 2020-06-07 14:36 | RADIOLOGY REPORT (SQ) ---
EXAM DESCRIPTION: CHEST SINGLE VIEW IMAGES COMPLETED DATE/TIME: 06/07/2020 2:07 pm REASON FOR STUDY: chest pain short of breath copd chf COMPARISON: None. EXAM PARAMETERS: NUMBER OF VIEWS: One view. TECHNIQUE: Single frontal radiographic view of the chest acquired. RADIATION DOSE: NA LIMITATIONS: None. FINDINGS: LUNGS AND PLEURA: No opacities, masses or pneumothorax. No pleural effusion. MEDIASTINUM AND HILAR STRUCTURES: No masses. Contour normal. HEART AND VASCULAR STRUCTURES: Enlarged, stable. Mild cephalization. No overt edema. BONES: No acute findings. HARDWARE: None in the chest. OTHER: No other significant finding. IMPRESSION: Stable enlarged cardiac silhouette without overt edema. TECHNICAL DOCUMENTATION: JOB ID: [id number] 2010 [employer]- All Rights Reserved Reading location - IP/workstation name: [email or web address]
--- NOTE | 2020-06-07 17:20 | ER Document Report ---
ED General - General Chief Complaint: Chest Pain Stated Complaint: NAUSEA/VOMITING,CHEST PAIN Time Seen by Provider: 06/07/20 12:10 Primary [facility] Provider: [facility] [NO LOCAL MD] - Follow up as needed Mode of Arrival: Ambulatory Information source: Patient Notes: ARNOLD HPI: 30-year-old female presents to ED for complaint of chest pain shortness of breath nausea and vomiting. She states she has a history of CHF COPD and she was scheduled to have a colonoscopy reversed today but was told that she could not do it because she had a leaky heart valve. She states she is having watery stools from her colostomy and is vomiting up clear fluids. She states she is got a follow-up appointment with a wall covering contractor on June 16. She states that shortness of breath she is feeling today is not like anything she has had before. I have ordered a cardiac work-up as well as lipase urine and cover testing. The patient was evaluated during the global Covid 19 pandemic, and that diagnosis was suspected/considered upon their initial presentation. Their evaluation, treatment and testing was consistent with current guidelines for patients who present with complaints or symptoms that may be related to Covid 19. TRAVEL OUTSIDE OF THE [place] IN LAST 30 DAYS: No - Related Data Allergies/Adverse Reactions: aspirin [From Excedrin Migraine] Allergy (Verified 06/07/20 14:52) caffeine [From Excedrin Migraine] Allergy (Verified 06/07/20 14:52) ibuprofen [From Advil] Allergy (Verified 06/07/20 14:52) Home Medications: i dont know Past Medical History - General Information source: Patient - Social History Smoking Status: Current Every Day Smoker Chew tobacco use (# tins/day): No Frequency of alcohol use: None Drug Abuse: None Family History: Hypertension Patient has homicidal ideation: No - Past Medical History Cardiac Medical History: Reports: Hx Congestive Heart Failure, Hx Hyperch olesterolemia, Hx Hypertension GI Medical History: Reports: Hx Diverticulitis - Colostomy, Hx Colonoscopy Skin Medical History: Reports Hx Cellulitis Past Surgical History: Reports: Hx Abdominal Surgery - ostomy, Hx Bowel Div ersion, Hx Bowel Surgery, Hx Colostomy - Colostomy with partial colectomy March 2019 for perforated diverticulitis, Other - Partial colectomy performed from likely perforated diverticulitis - Immunizations Immunizations up to date: Yes Hx Diphtheria, Pertussis, Tetanus Vaccination: Yes Review of Systems - Review of Systems Constitutional: Malaise EENT: No symptoms reported Cardiovascular: Chest pain Respiratory: Short of breath Gastrointestinal: Diarrhea, Nausea, Vomiting Genitourinary: No symptoms reported Female Genitourinary: No symptoms reported Musculoskeletal: No symptoms reported Skin: No symptoms reported Hematologic/Lymphatic: No symptoms reported Neurological/Psychological: No symptoms reported Physical Exam - Vital signs Vitals: Temp 98.8 F 06/07/20 14:48 - Notes Notes: PHYSICAL EXAMINATION: GENERAL: Well-appearing, well-nourished and in no acute distress. HEAD: Atraumatic, normocephalic. EYES: Pupils equal round and reactive to light, extraocular movements intact, conjunctiva are normal. ENT: Nares patent, oropharynx clear without exudates. Moist mucous membranes. NECK: Normal range of motion, supple without lymphadenopathy LUNGS: Breath sounds clear to auscultation bilaterally and equal. No wheezes rales or rhonchi. HEART: Regular rate and rhythm without murmurs ABDOMEN: Soft, nontender, nondistended abdomen. No guarding, no rebound. No masses appreciated. Colostomy present Female : deferred Musculoskeletal: Normal range of motion, no pitting or edema. No cyanosis. NEUROLOGICAL: Cranial nerves grossly intact. Normal speech, normal gait. N ormal sensory, motor exams PSYCH: Normal mood, normal affect. SKIN: Warm, Dry, normal turgor, no rashes or lesions noted. Course - Re-evaluation Re-evalutation: 06/07/20 17:20 Lab has not received in patient's blood work. Nursing staff making phone calls to inquire about status. Significant delay in receiving lab results. Patient work up today reassuring. Patient reports improvement of symptoms. Declines covid test today. The patient's emergency department workup and current diagnosis were explained to the patient and or family. Follow-up instructions were provided. Medications if prescribed were discussed. Instructions for when to return to the emergency department including specific worrisome symptoms were discussed with the patient and/or family. - Vital Signs Vital signs: Temp Pulse Resp BP Pulse Ox 98.3 F 70 20 111/68 100 06/07/20 19:43 06/07/20 19:43 06/07/20 19:43 06/07/20 19:43 06/07/20 19:43 - Laboratory Result Diagrams: 06/07/20 15:10 06/07/20 15:10 Laboratory results interpreted by me: 06/07/20 06/07/20 06/07/20 15:10 15:10 17:00 WBC 12.7 H RBC 5.61 H Hgb 11.9 L MCV 70 L MCH 21.2 L MCHC 30.5 L RDW 26.3 H Seg Neuts % (Manual) 88 H Lymphocytes % (Manual) 5 L Abs Neuts (Manual) 11.2 H Chloride 109 H Urine Protein 100 H Urine Glucose (UA) 50 H Urine Ketones 20 H Urine Blood LARGE H - Diagnostic Test Radiology reviewed: Image reviewed, Reports reviewed - EKG Interpretation by Me EKG shows normal: Sinus rhythm, [place], Intervals, QRS Complexes Rate: Bradycardia - rate 51 Discharge - Discharge Clinical Impression: Nausea & vomiting Qualifiers: Vomiting type: unspecified Vomiting Intractability: unspecified Qualified Code(s): R11.2 - Nausea with vomiting, unspecified Condition: Stable Disposition: HOME, SELF-CARE Additional Instructions: Push fluids, take nausea medication as prescribed. Tylenol as needed for any fever or body aches. Follow-up with your surgeon regarding your upcoming surgery. Return to the emergency department for any new or worsening symptoms. Prescriptions: Ondansetron [Zofran Odt 4 mg Tablet] 1 - 2 tab PO Q4H PRN #15 tab.rapdis PRN Reason: For Nausea/Vomiting [facility]: [facility] [NO LOCAL MD] - Follow up as needed
[2020-06-07 17:34] LABS: HEMOGLOBIN 11.9 g/dL (12.0-15.5); MEAN CORPUSCULAR HEMOGLOBIN 21.2 pg (27.0-33.4); MEAN CORPUSCULAR HGB CONC 30.5 g/dL (32.0-36.0); MEAN CORPUSCULAR VOLUME 70 fl (80-97); RED BLOOD COUNT 5.61 10^6/uL (3.72-5.28); RED CELL DISTRIBUTION WIDTH 26.3 % (11.5-14.0); WHITE BLOOD COUNT 12.7 10^3/uL (4.0-10.5)
[2020-06-07 17:41] LABS: ALBUMIN 4.5 g/dL (3.5-5.0); ALKALINE PHOSPHATASE 75 U/L (38-126); ANION GAP 7 (5-19); ASPARTATE AMINO TRANSFERASE 20 U/L (14-36); BILIRUBIN,DIRECT 0.2 mg/dL (0.0-0.4); BILIRUBIN,TOTAL 0.5 mg/dL (0.2-1.3); BLOOD UREA NITROGEN 13 mg/dL (7-20); CALCIUM 9.1 mg/dL (8.4-10.2); CARBON DIOXIDE 23 mmol/L (22-30); CHLORIDE 109 mmol/L (98-107); CREATINE KINASE 65 U/L (30-135); GLUCOSE 103 mg/dL (75-110); POTASSIUM 3.6 mmol/L (3.6-5.0); TOTAL PROTEIN 7.6 g/dL (6.3-8.2)
[2020-06-07 17:41] LABS: APPEARANCE,URINE CLEAR; BILIRUBIN,URINE NEGATIVE (NEGATIVE); COLOR,URINE YELLOW; GLUCOSE, URINE 50 mg/dL (NEGATIVE); KETONES,URINE 20 mg/dL (NEGATIVE); LEUKOCYTE ESTERASE,URINE NEGATIVE (NEGATIVE); NITRITE,URINE NEGATIVE (NEGATIVE); PROTEIN,URINE 100 mg/dL (NEGATIVE); URINE SPECIFIC GRAVITY 1.018; UROBILINOGEN,URINE NEGATIVE mg/dL (<2.0)
[2020-06-07 18:11] LABS: ABSOLUTE LYMPHOCYTES# (MANUAL) 0.8 10^3/uL (0.5-4.7); ABSOLUTE MONOCYTES # (MANUAL) 0.8 10^3/uL (0.1-1.4); BASOPHILS % (MANUAL) 0 % (0-2); EOSINOPHILS % (MANUAL) 0 % (0-6); LYMPHOCYTES % (MANUAL) 5 % (13-45); MONOCYTES % (MANUAL) 6 % (3-13); POLYCHROMASIA 1+; SEGMENTED NEUTROPHILS % (MAN) 88 % (42-78); TOTAL CELLS COUNTED 100
[2020-06-07 18:12] LABS: ANISOCYTOSIS 3+; HYPOCHROMASIA 2+; OVALOCYTES SLIGHT; PLATELET COMMENT ADEQUATE; POIKILOCYTOSIS 1+; TEAR DROP CELLS SLIGHT
[2020-06-07 18:13] LABS: PLATELET CLUMPS PRESENT; PLATELET COUNT 288 10^3/uL (150-450)
--- NOTE | 2020-06-07 18:14 | EKG REPORT ---
SEVERITY:- ABNORMAL ECG - SINUS BRADYCARDIA PROBABLE LEFT VENTRICULAR HYPERTROPHY : Confirmed by: Willian Rodas MD 07-Jun-2020 18:13:58
[2020-06-07] MEDS ORDERED: PROCHLORPERAZINE EDISYLATE INJ 10 MG/2 ML VIAL IV ONE (18:30)
[2020-06-07] MEDS ORDERED: ONDANSETRON ODT 4 MG TAB (6 TAB/ER DISP) PO PRN (19:20)
[2020-06-07 19:44] VITALS: BP 111/68
== END 2020-06-07 19:48 | disposition home or self-care (01) ==
LOC: ER 12:05
DX: R11.2 Nausea with vomiting, unspecified (principal); J44.9 Chronic obstructive pulmonary disease, unspecified; R07.9 Chest pain, unspecified; R06.02 Shortness of breath; Z93.3 Colostomy status; R00.1 Bradycardia, unspecified; F17.200 Nicotine dependence, unspecified, uncomplicated; I10 Essential (primary) hypertension; Z90.49 Acquired absence of other specified parts of digestive tract; Z88.8 Allergy status to other drugs, medicaments and biological substances; Z20.828 Contact with and (suspected) exposure to other viral communicable diseases
CPT/HCPCS: 93005; 96376; 99285; 96361; 96374; 96375; 36415; 87086; 82550; 83690; 83735; 84703; 85025; 80053; 81001; 84484; 71045; 93010; J0780; J2405; J7040